=== PATIENT | female | born 1995 ===

== ENCOUNTER → 2020-09-04 14:43 | Outpatient (BNVA) | payer OTHER, SELFPAY | PROVIDERS: Visit Provider Anesthesiology | DX: M51.36 Other intervertebral disc degeneration, lumbar region (principal); M54.16 Radiculopathy, lumbar region; M47.816 Spondylosis without myelopathy or radiculopathy, lumbar region; Z79.899 Other long term (current) drug therapy | CPT/HCPCS: 99212 ==

== ENCOUNTER → 2020-10-15 10:27 | Outpatient (BNVA) | payer OTHER, SELFPAY | PROVIDERS: PCP Internal Medicine; Visit Provider Nurse Practitioner | DX: M51.36 Other intervertebral disc degeneration, lumbar region (principal); M54.16 Radiculopathy, lumbar region; M47.16 Other spondylosis with myelopathy, lumbar region; E66.01 Morbid (severe) obesity due to excess calories; K75.81 Nonalcoholic steatohepatitis (NASH); Z79.899 Other long term (current) drug therapy | CPT/HCPCS: 99214; 99212 ==

== ENCOUNTER 2020-11-04 13:24 | Outpatient (RCR) | payer OTHER, SELFPAY ==
--- NOTE | 2020-11-04 14:47 | MHC.PT.EP ---
[facility] [place] Office [place] Office [place] Office [address] Nestor Buckner [address] [phone] F: [phone] F: [phone] F: [phone] F: [phone] Physical Therapy Plan of Care Date of Evaluation: Date of Surgery: Diagnosis: back pain Assessment: The patient arrived reporting chronic low back pain. By patient report she describes a sedentary lifestyle. She has some decreased trunk mobility, decreased lower extremity strength globally. She would benefit from a general HEP that promotes physical fitness, postural and core stabilization. She tends to lock out her knees in standing. I educated her on the negative implications this will have on her lower back and knees. Frequency and Duration: The patient will be seen 1x/week x 4 weeks. Short Term Goals: 1.Pt to able to demonstrate proper sitting posture with the use of a lumbar roll to decrease aggravating factors. 2.Pt to be able to demonstrate proper posture for common leisure activities such as crocheting and phone/tablet use. 3.For the patient to demonstrate proper upright sitting posture with use of the lumbar roll to improve compliance and carryover. Care Home Goals: 4 weeks - 1.The patient to demonstrate proper lifting mechanics for household chore activities to show improved functional mobility. 2.The patient to report no leg or hip pain in order to show centralization of pain and reduction of lumbar derangement 3. Pt to be able to demonstrate self management of lumbar pain by demonstration of HEP. Treatment Plan: Modalities to reduce pain, spasms and effusion. Manual therapy to restore motion and function. Therapeutic exercise to improve strength and flexibility. Neuromuscular re-education for posture and balance. Therapeutic activities to return to functional activities of daily living. Electronically signed by: Lea Marie PT DPT Please sign and return to therapist. Thank you for your referral.
== END 2020-11-19 08:00 | disposition home or self-care (01) ==
LOC: HO.PT 13:24
PROVIDERS: Visit Provider Anesthesiology
DX: M47.816 Spondylosis without myelopathy or radiculopathy, lumbar region (principal)
CPT/HCPCS: 97110; 97112; 97162

== ENCOUNTER → 2020-12-25 15:06 | Outpatient (BNVA) | payer OTHER, SELFPAY | PROVIDERS: PCP Internal Medicine; Visit Provider Nurse Practitioner Family | DX: M51.36 Other intervertebral disc degeneration, lumbar region (principal); M54.16 Radiculopathy, lumbar region; M47.816 Spondylosis without myelopathy or radiculopathy, lumbar region | CPT/HCPCS: 99212 ==

== ENCOUNTER 2021-01-13 11:54 | Outpatient (REF) | payer OTHER, SELFPAY ==
[2021-01-13 13:01] LABS: Hematocrit 38.6 % (37-47); Hemoglobin 12.2 g/dl (12.0-16.0); Mean Corpuscular HGB Conc 31.6 g/dl (31.0-35.0); Mean Corpuscular Volume 82.3 fL (80-98); Mean Platelet Volume 12.2 fL (9.4-12.3); Platelet Count 261 X10*3/uL (160-400); Red Blood Count 4.69 X10*6/uL (4.20-5.50); Red Cell Distribution Width 13.4 % (11.0-16.0); White Blood Count 5.3 X10*3/uL (4.8-10.8)
[2021-01-13 13:16] LABS: Alanine Aminotransferase 243 U/L (0-31); Albumin Level 4.7 g/dL (3.5-5.0); Alkaline Phosphatase 116 U/L (39-117); Anion Gap 13 (12-20); Aspartate Amino Transferase 221 U/L (5-31); Bilirubin Direct 0.2 mg/dL (0.0-0.5); Bilirubin Total 0.3 mg/dL (0.0-1.0); Blood Urea Nitrogen 7 mg/dL (9-16); Calcium 9.6 mg/dL (8.4-10.2); Carbon Dioxide 23 mmol/L (22-29); Chloride 104 mmol/L (96-108); Cholesterol 248 mg/dL; Estimated Glomerular Filt Rate > 60; Glucose Random 297 mg/dL (60-115); HDL Cholesterol 34 mg/dL; Potassium 4.4 mmol/L (3.3-5.1); Sodium 136 mmol/L (135-145); Total Protein 8.2 g/dL (6.5-8.0); Triglycerides 540 mg/dL
[2021-01-13 13:26] LABS: Estimated Average Glucose 260 mg/dL; Hemoglobin A1c % 10.7 %
[2021-01-13 13:38] LABS: Thyroid Stimulating Hormone 1.43 uIU/mL (0.32-4.0)
== END 2021-01-13 11:55 | disposition home or self-care (01) ==
LOC: HO.LAB 11:54
PROVIDERS: PCP Internal Medicine; Visit Provider Internal Medicine
DX: E11.9 Type 2 diabetes mellitus without complications (principal)
CPT/HCPCS: 36415; 80048; 80061; 80076; 83036; 84443; 85027

== ENCOUNTER → 2021-04-08 15:58 | Outpatient (BNVA) | payer OTHER, SELFPAY | PROVIDERS: PCP Internal Medicine; Visit Provider Nurse Practitioner ==

== ENCOUNTER 2021-04-29 08:14 | Outpatient (REF) | payer OTHER, SELFPAY ==
--- NOTE | ~2021-04-29 | US_ITS ---
EXAMINATION: US ABDOMEN COMPLETE CLINICAL INFORMATION: BENOIT (nonalcoholic steatosis). COMPARISON: Ultrasound abdomen complete dated 12/16/2018. TECHNIQUE: Real-time imaging of the abdominal viscera. FINDINGS: PANCREAS: Normal. ABDOMINAL AORTA: The proximal, mid, and distal segments are normal in caliber. INFERIOR VENA CAVA: Visualized portions are normal. LIVER: Liver echotexture is increased. The liver is enlarged, right lobe measuring 26 cm and left lobe measuring 19 cm in length. The liver contour is normal. No focal hepatic lesion. There is no intrahepatic biliary duct dilatation seen. GALLBLADDER: The gallbladder is physiologically distended. Multiple small dependent layering gallstones are present. No evidence of gallbladder wall thickening or pericholecystic fluid. COMMON BILE DUCT: Normal in caliber measuring 0.5 cm in diameter. RIGHT KIDNEY: Normal. No hydronephrosis. No renal calculi or focal parenchymal lesions. The kidney measures 14.7 cm in maximum dimension. LEFT KIDNEY: There is mild fullness of the left renal pelvis. This is new from previous exam. No calyceal dilatation is seen. No renal calculi or focal parenchymal lesions. The kidney measures 15.0 cm in maximum dimension. SPLEEN: There is a 2 cm splenule splenic hilum. The spleen measures 12.1 cm in maximum dimension. FREE FLUID: None. US/US abdomen complete IMPRESSION: Enlarged fatty liver. Gallstones.
== END 2021-04-29 08:15 | disposition home or self-care (01) ==
LOC: HO.US 08:14
PROVIDERS: PCP Internal Medicine; Visit Provider Nurse Practitioner
DX: K75.81 Nonalcoholic steatohepatitis (NASH) (principal)
CPT/HCPCS: 76700

== ENCOUNTER → 2021-07-11 10:59 | Outpatient (BNVA) | payer OTHER, SELFPAY | PROVIDERS: PCP Internal Medicine; Referring Provider Internal Medicine; Visit Provider Nurse Practitioner | DX: K75.81 Nonalcoholic steatohepatitis (NASH) (principal); K80.20 Calculus of gallbladder without cholecystitis without obstruction; E66.01 Morbid (severe) obesity due to excess calories; E11.65 Type 2 diabetes mellitus with hyperglycemia; Z68.35 Body mass index [BMI] 35.0-35.9, adult | CPT/HCPCS: 99212 ==

== ENCOUNTER 2021-07-18 12:00 | Outpatient (REF) | payer OTHER, SELFPAY ==
[2021-07-18 13:02] LABS: Alanine Aminotransferase 79 U/L (0-31); Albumin Level 4.8 g/dL (3.5-5.0); Alkaline Phosphatase 105 U/L (39-117); Aspartate Amino Transferase 41 U/L (5-31); Bilirubin Direct 0.2 mg/dL (0.0-0.5); Bilirubin Total 0.4 mg/dL (0.0-1.0); Total Protein 8.5 g/dL (6.5-8.0)
== END 2021-07-18 12:01 | disposition home or self-care (01) ==
LOC: HO.LAB 12:00
PROVIDERS: PCP Internal Medicine; Visit Provider Nurse Practitioner
DX: K75.81 Nonalcoholic steatohepatitis (NASH) (principal)
CPT/HCPCS: 36415; 80076; 82105

== ENCOUNTER 2021-09-01 10:19 | Outpatient (REF) | payer OTHER, SELFPAY ==
--- NOTE | ~2021-09-01 | US_ITS ---
EXAMINATION: US ABDOMEN LIMITED CLINICAL INFORMATION: BENOIT. COMPARISON: Ultrasound abdomen complete 04/29/2021 and 12/16/2018. TECHNIQUE: Real-time imaging of the right upper quadrant abdominal viscera. FINDINGS: PANCREAS: The head and body of the pancreas are normal. The tail is not well visualized due to bowel gas. LIVER: Liver echotexture is slightly increased. Liver is slightly enlarged, right lobe measuring 20 cm. The liver contour is normal. No focal hepatic lesion. There is no intrahepatic biliary duct dilatation seen. GALLBLADDER: The gallbladder is physiologically distended. Multiple mobile gallstones are present. No evidence of gallbladder wall thickening or pericholecystic fluid. COMMON BILE DUCT: Normal in caliber measuring 0.5 cm in diameter. RIGHT KIDNEY: Slightly enlarged but similar to previous exam. This may be due to body habitus. No hydronephrosis. No renal calculi or focal parenchymal lesions. The kidney measures 14.5 cm in maximum dimension. FREE FLUID: None. US/US abdomen limited IMPRESSION: Slightly echogenic liver probably representing fatty infiltration. Gallstones. Limited visualization of the tail of the pancreas.
== END 2021-09-01 10:20 | disposition home or self-care (01) ==
LOC: HO.US 10:19
PROVIDERS: PCP Internal Medicine; Visit Provider Nurse Practitioner
DX: K75.81 Nonalcoholic steatohepatitis (NASH) (principal)
CPT/HCPCS: 76705

== ENCOUNTER 2021-09-12 11:00 | Outpatient (RCR) | payer OTHER, SELFPAY ==
--- NOTE | 2021-09-12 12:11 | MHC.PT.DC ---
[facility] [place] Office [place] Office [place] Office [address] Nestor Buckner [address] [phone] F: [phone] F: [phone] F: [phone] F: [phone] Physical Therapy Discharge Report Diagnosis: LOW BACK PAIN Date of Surgery: Date of Evaluation: 06/06/21 Date of Discharge: Treatments to Date: 8 Cancellations to Date: No Shows to Date: Discharge Status: Discharge Summary: Evie was able to demonstrate independence with HEP today. She has had difficulty attending regular therapy and has only completed 8 visits since May. At this point it appears a focused home program will be more beneficial for her at this time. Electronically signed by: Please sign and return to therapist. Thank you for your referral.
== END 2021-09-12 12:13 | disposition home or self-care (01) ==
LOC: HO.PT 11:00
PROVIDERS: PCP Internal Medicine; Visit Provider Nurse Practitioner Family
DX: M47.816 Spondylosis without myelopathy or radiculopathy, lumbar region (principal)
CPT/HCPCS: 97110; 97161; 97530

== ENCOUNTER → 2022-02-05 12:15 | Outpatient (BNVA) | payer OTHER, SELFPAY | PROVIDERS: PCP Internal Medicine; Referring Provider Internal Medicine; Visit Provider Nurse Practitioner | DX: K75.81 Nonalcoholic steatohepatitis (NASH) (principal); K76.0 Fatty (change of) liver, not elsewhere classified; E11.65 Type 2 diabetes mellitus with hyperglycemia; E66.01 Morbid (severe) obesity due to excess calories | CPT/HCPCS: 99212 ==

== ENCOUNTER 2022-02-24 08:58 | Outpatient (REF) | payer OTHER, SELFPAY ==
[2022-02-24 10:04] LABS: Hematocrit 36.8 % (37.0-47.0); Hemoglobin 11.9 g/dl (12.0-16.0); Mean Corpuscular HGB Conc 32.3 g/dl (31.0-35.0); Mean Corpuscular Hemoglobin 26.7 pg (27.0-33.0); Mean Corpuscular Volume 82.5 fL (80.0-98.0); Mean Platelet Volume 11.6 fL (9.4-12.3); Platelet Count 269 X10*3/uL (160-400); Red Blood Count 4.46 X10*6/uL (4.20-5.50); Red Cell Distribution Width 13.5 % (11.0-16.0); White Blood Count 7.3 X10*3/uL (4.8-10.8)
[2022-02-24 10:07] LABS: Estimated Average Glucose 163 mg/dL; Hemoglobin A1c % 7.3 %
[2022-02-24 10:21] LABS: Microalbum/Creatinine Ratio Ur 9.2 ug/mg cr
[2022-02-24 10:24] LABS: Alanine Aminotransferase 38 U/L (0-31); Albumin Level 4.5 g/dL (3.5-5.0); Alkaline Phosphatase 65 U/L (39-117); Anion Gap 15 (12-20); Aspartate Amino Transferase 23 U/L (5-31); Bilirubin Direct 0.2 mg/dL (0.0-0.5); Bilirubin Total 0.5 mg/dL (0.0-1.0); Blood Urea Nitrogen 9 mg/dL (9-16); Calcium 9.6 mg/dL (8.4-10.2); Carbon Dioxide 22 mmol/L (22-29); Chloride 106 mmol/L (96-108); Cholesterol 201 mg/dL; Estimated Glomerular Filt Rate > 60; Glucose Random 103 mg/dL (60-115); HDL Cholesterol 29 mg/dL; LDL Cholesterol Calculated 117 mg/dl; Potassium 4.2 mmol/L (3.3-5.1); Sodium 139 mmol/L (135-145); Total Protein 7.9 g/dL (6.5-8.0); Triglycerides 277 mg/dL
== END 2022-02-24 08:59 | disposition home or self-care (01) ==
LOC: HO.LAB 08:58
PROVIDERS: PCP Internal Medicine; Visit Provider Internal Medicine
DX: E11.65 Type 2 diabetes mellitus with hyperglycemia (principal)
CPT/HCPCS: 36415; 80048; 80061; 80076; 82043; 83036; 85027

== ENCOUNTER 2022-06-01 10:46 | Emergency (ER) | payer OTHER, SELFPAY ==
[2022-06-01 10:51] VITALS: PULSE 87; RESP 16; TEMP 36.3; O2SAT 98; BMI 34.4
--- NOTE | 2022-06-01 11:49 | ED.GENADULT ---
HPI - General Adult General Chief complaint: Back Pain/Injury Stated complaint: Back pain rad to leg Time Seen by Provider: 06/01/22 11:47 Source: patient Mode of arrival: ambulatory Limitations: no limitations History of Present Illness HPI narrative: Patient is a 27 year old assigned female at with a history of DM, lumbar spine disc degeneration, and BENOIT presenting to the emergency department today with low back pain. Patient states that for the last 2 weeks she has had worsening low back pain that radiates down her leg. Patient states that she has had problems with this in the past but it usually resolves on its own. Patient denies any dizziness, lightheadedness, abdominal pain, nausea, vomiting, fever, chills, blurry vision, double vision, loss of vision, chest pain, difficulty breathing, shortness of breath, night sweats, pain with urination, increased urinary frequency, increased urinary urgency, blood in her urine or stool, syncope or a near syncopal episode, recent trauma or falls, bowel incontinence, bladder incontinence, bowel retention, bladder retention, or any other complaints at this time. Onset (ago): week(s) (2) Location: back Radiation: extremity Severity: mild Severity scale (1-10): 3 Quality: aching Pain Consistency: intermittent Relieving factors: none Exacerbating factors: movement Associated symptoms: denies other symptoms Treatments prior to arrival: none Related Data Home Medications Medication Instructions Recorded Confirmed lancets 28 gauge #100 ea 04/30/20 09/19/21 blood sugar diagnostic (FreeStyle 05/01/21 09/19/21 Test strips) Previous Rx's Medication Instructions Recorded cyclobenzaprine 10 mg tablet 10 mg PO BEDTIME PRN for muscle 05/01/21 spasm #30 tabs gabapentin 300 mg capsule 300 mg PO TID 1 month #90 caps 05/01/21 hydroxyzine HCl 25 mg tablet 25 mg PO TID PRN for itch #30 tabs 05/01/21 ibuprofen 800 mg tablet 800 mg PO Q8H PRN for pain #30 tabs 05/01/21 losartan 25 mg tablet 25 mg PO DAILY 90 days #90 tabs 05/01/21 tizanidine 2 mg tablet 2 mg PO BEDTIME PRN muscle 05/01/21 spasticity #30 tabs pen needle, diabetic 32 gauge x #50 ea 12/02/21 5/32 (BD Hanny 2nd Gen Pen Needle) sertraline 50 mg tablet 50 mg PO DAILY #90 tabs 11/26/21 atorvastatin 40 mg tablet 40 mg PO DAILY #90 tabs 12/15/21 sitagliptin phosphate 50 mg tablet 50 mg PO DAILY #90 tabs 02/16/22 (Januvia) flash glucose scanning reader #1 ea 03/26/22 (FreeStyle Hannah 14 Day [place]) flash glucose sensor (FreeStyle #2 kits 03/26/22 Hannah 14 Day Sensor kit) trazodone 100 mg tablet 100 mg PO BEDTIME PRN sleep 90 04/24/22 days #90 tabs insulin glargine 100 unit/mL (3 15 unit (0.15 mL) subcut QPM #15 mL 05/17/22 mL) subcutaneous pen (Lantus Solostar U-100 Insulin) cyclobenzaprine 5 mg tablet 5 mg PO TID PRN back pain 7 days 06/01/22 #21 tabs prednisone 20 mg tablet 20 mg PO DAILY 7 days #7 tabs 06/01/22 Allergies Allergy/AdvReac Type Severity Reaction Status Date / Time penicillin V Allergy Unknown rash,hives, Verified 06/01/22 10:51 fever Review of Systems Constitutional: Constitutional: Reports no additional constitutional complaints, Denies chills, Denies fever(s) and Denies night sweats Eyes: Eyes: Reports no additional eye complaints, Denies blurry vision, Denies change in vision, Denies diplopia, Denies eye discharge, Denies loss of vision and Denies eye pain ENT: Denies dizziness Cardiovascular: Cardiovascular: Reports no additional cardiovascular complaints, Denies chest pain, Denies lightheadedness, Denies Loss of Consciousness and Denies dyspnea Respiratory: Respiratory: Reports no additional respiratory complaints and Denies dyspnea Gastrointestinal: Gastrointestinal: Reports no additional gastrointestinal complaints, Denies abdominal pain, Denies melena, Denies hematochezia, Denies change in bowel habits and Denies change in stool character Genitourinary: Genitourinary: Denies hematuria, Denies urinary frequency, Denies dysuria, Denies urinary incontinence, Denies urinary hesitancy and Denies urinary urgency Musculoskeletal: Musculoskeletal: Reports no additional musculoskeletal complaints, Reports back pain, Denies numbness and Denies tingling Neurologic: Denies dizziness, Denies loss of vision, Denies numbness and Denies tingling Psychiatric: Psychiatric: Reports no additional psychiatric complaints Endocrine: Endocrine: Reports no additional endocrine complaints Hematologic/Lymphatic: Hematologic/Lymphatic: Reports no additional hematologic/lymphatic complaints Allergic/Immunologic: Allergic/Immunologic: Reports no additional allergic/immunologic complaints PMFSH Past Medical History Attestation statement: The following information was validated with the patient. Source: old records reviewed and nursing notes reviewed Medical History Bilateral hand pain Disc degeneration, lumbar Endogenous depression High cholesterol Radiculopathy, lumbar region Spondylosis of lumbar spine Surgical History H/O knee surgery History of section Family History Family History Father Hypertension Mother Breast cancer Pelvic cancer Hypertension Diabetes Maternal Grandmother Diabetes Hypertension CVD (cardiovascular disease) Maternal Grandfather Diabetes Hypertension CVD (cardiovascular disease) Social History Social History Household Members: Children Housing: Apartment Alcohol intake: current Alcohol intake frequency: does not drink Patient Tobacco Use Status: Never used Tobacco e-Cigarette/Vaping Use: Never Used Second Hand Smoke Exposure: Yes Advance Directives: No Advance Directives Information Provided: No service: No Current occupational status: disabled Cognitive needs: Yes (cane) Hearing needs: No Vision needs: No Physical Exam ED Vital Signs: Vital Signs - 24 hr 06/01/22 10:51 Temperature 97.3 F Pulse Rate 87 Respiratory Rate 16 Pulse Oximetry 98 Oxygen Delivery Method Room Air BMI result Body Mass Index 34.4 Const General: cooperative, no acute distress, alert and awake Nutritional Appearance: well nourished Orientation/consciousness: patient oriented x3 Limitations: no limitations HENMT Head: Yes normal to inspection and Yes atraumatic Ears: hearing grossly normal bilaterally and external ears normal General nose exam: Normal external nose present, no nasal discharge noted and no epistaxis Face and sinus: Yes normal facial exam, No abrasion and No laceration Mouth: Normal oral and palatal mucosa present, no drooling and no muffled voice Eyes General: appearance normal, both eyes and all related structures Periorbital: periorbital findings normal Eyelids: Yes eyelids normal Conjunctivae: conjunctivae normal Pupils: Equal, round and reactive pupils present EOM: EOMs intact bilaterally Neck Neck: Yes normal visual inspection, Yes full ROM and Yes no lymphadenopathy Chest Chest palpation & inspection: normal inspection of the chest Resp Effort & Inspection: normal respiratory effort and able to speak in complete sentences Auscultation: clear to auscultation bilaterally Cardio Rate: regular rate Rhythm: regular rhythm GI Inspection: Yes normal to inspection General: Yes no CVA tenderness Back/Spine/Pelvis Back: no CVA tenderness Cervical Spine: normal cervical lordosis and cervical ROM normal Thoracic/Lumbar Spine: thoracic and lumbar spine normal to inspection and thoraco-lumbar ROM normal Pelvis: no pain with anterior-posterior compression Neuro General: patient oriented x3 and moves all extremities Cranial nerves: Yes Equal, round and reactive pupils present Cognition (Neuro): normal cognition Motor exam (neuro): 5/5 motor strength present throughout Sensory Exam: Normal double simultaneous stimulation for sensation Coordination: picawa-bz-[id number] test normal Extrem General: Yes normal to inspection, Yes full ROM and Yes capillary refill normal Psych Appearance: grossly normal Mental Status: mental status grossly normal Affect: normal affect Attitude: cooperative Thought process: Normal thought process present Thought content: Normal thought content present Insight: Good insight present (Psych) Medications Administered Discontinued Medications Generic Name Dose Route Start Last Admin Trade Name Jazmin PRN Reason Stop Dose Admin Cyclobenzaprine HCl 5 mg 06/01/22 11:55 06/01/22 12:05 Cyclobenzaprine Hcl 5 Mg Tablet PO 06/01/22 11:56 5 mg ONCE ONE Administration Ketorolac Tromethamine 15 mg 06/01/22 11:55 06/01/22 12:06 Ketorolac Tromethamine 15 Mg/Ml Vial IM 06/01/22 11:56 15 mg ONCE ONE Administration Medical Decision Making Medical Decision Making [facility] Narrative: Patient is a 27 year old assigned female at with a history of DM, BENOIT, and lumbar spine disc degeneration presenting to the emergency department today with low back pain. Patient's physical exam was unremarkable. Patient's clinical presentation is most consistent with sciatica. I explained my physical exam findings to the patient. I answered all questions asked by the patient. Patient received PO Flexeril and IM Toradol which she stated helped her symptoms significantly. I stressed the importance of the patient taking her medication as prescribed. I stressed the importance of the patient following up with her primary care provider. I stressed the importance of the patient returning to the emergency department immediately if her symptoms were to worsen or if she were to develop any dizziness, shortness of breath, difficulty breathing, chest pain, blurry vision, loss of vision, nausea, vomiting, abdominal pain, fever, chills, back pain, or any other complaints. Patient verbalized agreement and understanding with this treatment plan and discharge. Differential Diagnosis Differential Diagnoses: The differential diagnosis associated with the presentation includes sciatica, chronic low back pain, low back pain, sciatic nerve pain Chronic Conditions Patient?s care impacted by: Diabetes and Other (low back pain) Discharge Plan Discharge Clinical Impression: Sciatica Patient Disposition: Home, Self-Care Instructions: Sciatica (ED) Additional Instructions: Follow up with your primary care provider. Return to the emergency department immediately if your symptoms worsen or if you develop any dizziness, shortness of breath, difficulty breathing, chest pain, blurry vision, loss of vision, nausea, vomiting, abdominal pain, fever, chills, back pain, or any other complaints. Prescriptions: New cyclobenzaprine 5 mg tablet 5 mg PO TID PRN (Reason: back pain) 7 Days Qty: 21 0RF prednisone 20 mg tablet 20 mg PO DAILY 7 Days Qty: 7 0RF No Action sertraline 50 mg tablet 50 mg PO DAILY Qty: 90 1RF atorvastatin 40 mg tablet 40 mg PO DAILY Qty: 90 1RF Januvia 50 mg tablet 50 mg PO DAILY Qty: 90 1RF (DME) FreeStyle Hannah 14 Day Sensor Kit See Rx Instructions .ROUTE .COMPLEX Qty: 2 0RF Dose Instruction: USE DIRECTED Rx Instructions: USE DIRECTED trazodone 100 mg tablet 100 mg PO BEDTIME PRN (Reason: sleep) 90 Days Qty: 90 1RF Lantus Solostar U-100 Insulin 100 unit/mL (3 mL) insulin pen 15 unit subcut QPM Qty: 15 0RF (DME) lancets 28 gauge misc See Rx Instructions topical TID Qty: 100 Rx Instructions: As directed tizanidine 2 mg tablet 2 mg PO BEDTIME PRN (Reason: muscle spasticity) Qty: 30 0RF Rx Instructions: discontinue flexeril. start with 1/2 tab as medication can be sedating losartan 25 mg tablet 25 mg PO DAILY 90 Days Qty: 90 0RF ibuprofen 800 mg tablet 800 mg PO Q8H PRN (Reason: for pain) Qty: 30 0RF hydroxyzine HCl 25 mg tablet 25 mg PO TID PRN (Reason: for itch) Qty: 30 0RF gabapentin 300 mg capsule 300 mg PO TID 30 Days Qty: 90 0RF cyclobenzaprine 10 mg tablet 10 mg PO BEDTIME PRN (Reason: for muscle spasm) Qty: 30 0RF (DME) FreeStyle Test Strip See Rx Instructions .Route Rx Instructions: Test bs three time a day (DME) pen needle, diabetic [BD Hanny 2nd Gen Pen Needle] 32 gauge x 5/32 needle See Rx Instructions .Route Qty: 50 12RF Rx Instructions: As directed daily (DME) FreeStyle Hannah 14 Day [place] Misc See Rx Instructions .Route Qty: 1 8RF Rx Instructions: As directed Referrals: Rogelio Tadeo MD [Primary Care Provider] - Interventions: ED Discharge Assessment Last Done: 06/01/22 12:15 Discharge Date/Time: 06/01/22 12:16 Print Language: Yakut
[2022-06-01] MEDS: Cyclobenzaprine HCl 5 MG TABLET PO (12:05)
[2022-06-01] MEDS: Ketorolac Tromethamine 15 MG/ML VIAL IM (12:06)
== END 2022-06-01 12:16 | disposition home or self-care (01) ==
PROVIDERS: Emergency Provider Emergency Medicine; PCP Internal Medicine
DX: M54.40 Lumbago with sciatica, unspecified side (principal); E11.9 Type 2 diabetes mellitus without complications; E78.5 Hyperlipidemia, unspecified; E66.9 Obesity, unspecified; Z68.34 Body mass index [BMI] 34.0-34.9, adult; Z79.02 Long term (current) use of antithrombotics/antiplatelets; Z79.4 Long term (current) use of insulin; Z79.899 Other long term (current) drug therapy
CPT/HCPCS: 96372; 99283; 99284; J1885

== ENCOUNTER 2022-12-31 15:18 | Outpatient (AMB) | payer OTHER, SELFPAY ==
--- NOTE | 2022-12-31 15:32 | A.OFFPC_ITS ---
Vital Signs 12/31/22 15:36 Height 5 ft 10 in Weight 252 lb 4 oz BMI 36.2 BP 130/60 Blood Pressure Location Lt brachial Position Sitting Intake Visit Reasons: 3mth f/u (DM) Intake Note: Patient is here to follow up on DM, DDL. Software Quality Assurance Specialist Required: No Optical Goods Drill Operator: Not Required per policy Accompanied by: Self / Same As Patient Allergies penicillin V Allergy (Unknown, Verified 01/01/23 12:05) rash,hives, fever Medication List - Last Reconciled 01/01/23 by Rogelio Tadeo MD atorvastatin 40 mg PO DAILY blood sugar diagnostic (FreeStyle Test strips) Test bs three time a day cyclobenzaprine 5 mg PO TID PRN 7 days cyclobenzaprine 10 mg PO BEDTIME PRN flash glucose scanning reader (FreeStyle Hannah 14 Day Cabazon) As directed flash glucose sensor (FreeStyle Hannah 14 Day Sensor kit) USE DIRECTED gabapentin 300 mg PO TID 1 month hydroxyzine HCl 25 mg PO TID PRN ibuprofen 800 mg PO Q8H PRN insulin glargine (Lantus Solostar U-100 Insulin) 15 units (0.15 mL) subcut QPM lancets As directed losartan 25 mg PO DAILY 90 days meloxicam 15 mg PO DAILY pen needle, diabetic (BD Hanny 2nd Gen Pen Needle) As directed daily sertraline 50 mg PO DAILY sitagliptin phosphate (Januvia) 50 mg PO DAILY tizanidine 2 mg PO BEDTIME PRN topiramate 25 mg PO BID trazodone 100 mg PO BEDTIME PRN 90 days Tobacco use date assessed: 12/31/22 Dental Screening Dental Screen Date: 12/31/22 Did you have a dental visit in the last 12 months?: No Did you have a dental problem in the last 6 months where you did not have access to dental care?: No Was dental information given to patient?: No HPI 3mth f/u (DM) HPI Details 27-year-old female presents to the office to discuss her chronic medical conditions. Since last office visit patient has had 2 surgeries. She had a disc repair on July 21 and repeat surgery on September 17. Continues to have symptoms of numbness on the right side of her leg. She has been referred to physical therapy. In addition patient fell from a [place] 2 days ag o. She landed on her butt and is painful. Able to walk with no difficulty. [facility] Medical History (Updated 06/02/22 @ 00:01 by Le Flanagan) Bilateral hand pain Disc degeneration, lumbar Endogenous depression High cholesterol Radiculopathy, lumbar region Spondylosis of lumbar spine Surgical History (Updated 12/31/22 @ 15:41 by MANSOOR Fraga) H/O knee surgery History of back surgery History of section Family History Father Hypertension Mother Breast cancer Pelvic cancer Hypertension Diabetes Maternal Grandmother Diabetes Hypertension CVD (cardiovascular disease) Maternal Grandfather Diabetes Hypertension CVD (cardiovascular disease) Social History Household Members: Children Housing: Apartment Alcohol intake: current Alcohol intake frequency: does not drink Patient Tobacco Use Status: Never used Tobacco e-Cigarette/Vaping Use: Never Used Second Hand Smoke Exposure: Yes service: No Current occupational status: disabled Cognitive needs: Yes (cane) Hearing needs: No Vision needs: No Questionnaire PHQ-9 Over the last 2 weeks, how often have you been bothered by any of the following problems? 1. Little interest or pleasure in doing things: not at all 2. Feeling down, depressed, or hopeless: several days (Pt is been treat at therapy) 3. Trouble falling or staying asleep, or sleeping too much: not at all 4. Feeling tired or having little energy: not at all 5. Poor appetite or overeating: not at all 6. Feeling bad about yourself - or that you are a failure or have let yourself or your family down: not at all 7. Trouble concentrating on things, such as reading the newspaper or watching television: not at all 8. Moving or speaking so slowly that other people could have noticed. Or the opposite - being so fidgety or restless that you have been moving around a lot more than usual: not at all 9. Thoughts that you would be better off or of hurting yourself in some wa y: not at all Total score: 1 Source: Developed by Drs. Emile Prince, Andra Barfield, Velasquez Frances and colleagues, with an educational keeley from [employer]. Thrive Questionnaire Date Thrive assessed: 12/31/22 I am a: Patient What is your living situation today?: I have a steady place to live Within the past 12 months, did the food you bought not last and you didn't have the money to get more?: Never true Within the past 12 months, did you worry whether your food would run out before you got money to buy more?: Never true Do you have trouble paying for medicines?: No Do you have trouble getting transportation to medical appointments?: No Do you have trouble paying your heating and electricity bill?: No Do you have trouble taking care of your child, family member or friend?: No Do you have trouble with day-to-day activities such as bathing, preparing meals, shopping, managing finances, etc.?: No Are you currently unemployed and looking for a job?: No Are you interested in more education?: No Currently or been in a relationship where the following occur: no concerns reported AUDIT C Alcohol Use Questionnaire (AUDIT-C) 1. How often do you have a drink containing alcohol?: Never Total Score: 0 KAI-7 AMB Questionnaire KAI-7 Date KAI - 7 assessed: 12/31/22 Feeling nervous, anxious, or on edge: 1 = Several days (Pt is been treat at therapy) Not being able to stop or control worryin = Not at all Worrying too much about different things: 0 = Not at all Trouble relaxin = Not at all Being so restless that it is hard to sit still: 0 = Not at all Becoming easily annoyed or irritable: 0 = Not at all Feeling afraid as if something awful might happen: 0 = Not at all Total KAI-7 score (0-4 normal; 5-9 mild; 10-14 moderate; 15-21 severe): 1 Source: Developed by Drs. Emile Prince, Andra Barfield, Velasquez Frances and colleagues, with an educational keeley from [employer]. Physical exam (Primary Care) Vital Signs: Last Vital Signs BP 130/60 12/31/22 15:36 BMI result Body Mass Index 36.2 Tobacco/Smoking Status: Tobacco use Status Tobacco use date assessed 12/31/22 12/31/22 15:46 Patient Tobacco Use Status Never used Tobacco 12/31/22 15:35 e-Cigarette/Vaping Use Never Used 12/31/22 15:35 PHQ-9: PHQ-9 Score PHQ-9: Total score 1 12/31/22 15:46 Thrive Assessment: Date of Thrive Assessment Date Thrive assessed 12/31/22 12/31/22 15:35 Currently or been in a relationship where the following occur: no concerns reported Const General: cooperative, healthy appearing and comfortable HENMT Head: Yes normal to inspection and Yes atraumatic Eyes General: appearance normal, both eyes and all related structures Neck Neck: Yes normal visual inspection and Yes full ROM Chest Chest palpation & inspection: normal inspection of the chest Resp Effort & Inspection: normal respiratory effort Auscultation: clear to auscultation bilaterally Cardio Jugular venous distension: no JVD Palpation: normal PMI Rate: regular rate Heart sounds: S1 normal heart sound present and S2 normal heart sound present GI Palpation (GI): Soft to palpation and No hepatosplenomegaly present Extrem General: Yes normal to inspection and Yes full ROM Results AMB Hemoglobin A1c AMB Hemoglobin A1c 8.0 % Last Edit by MANSOOR Fraga on 12/31/22 15:47 Results Reviewed Results Reviewed: Laboratory Last Values Hgb A1c (Clinic) 8.0 % (4.0-6.0) H 12/31/22 15:31 Assessment and Plan Assessment & Plan (1) Endogenous depression: Code(s): F33.2 - Major depressive disorder, recurrent severe without psychotic features Plan: This appears to be stable. Control current medications. (2) Poorly controlled diabetes mellitus: Code(s): E11.65 - Type 2 diabetes mellitus with hyperglycemia Plan: A1c is 8. Patient at the moment is more concerned about her lower back pain. She has promised to change her diet. (3) Morbid obesity: Code(s): E66.01 - Morbid (severe) obesity due to excess calories Plan: Counseling on the importance of diet and exercise done. (4) Radiculopathy, lumbar region: Code(s): M54.16 - Radiculopathy, lumbar region Plan: All care in this regard is from the neurosurgeon who is coordinating the physical therapy. Orders: Orders 2 AMB Hemoglobin A1c 12/31/22 E11.65 - Type 2 diabetes mellitus with hyperglycemia Coding Level of Care Code Est Pt Level 4 (63546) Diagnoses Endogenous depression F33.2 Poorly controlled diabetes mellitus E11.65 Morbid obesity E66.01 Radiculopathy, lumbar region M54.16
[2022-12-31 15:36] VITALS: BP 130/60; BMI 36.2
== END 2022-12-31 16:13 | disposition home or self-care (01) ==
PROVIDERS: PCP Internal Medicine; Visit Provider Internal Medicine
DX: F33.2 Major depressive disorder, recurrent severe without psychotic features (principal); E11.65 Type 2 diabetes mellitus with hyperglycemia; E66.01 Morbid (severe) obesity due to excess calories; Z68.36 Body mass index [BMI] 36.0-36.9, adult; M54.16 Radiculopathy, lumbar region
CPT/HCPCS: 83036; 99214

== ENCOUNTER 2023-03-09 14:34 | Outpatient (AMB) | payer OTHER, SELFPAY ==
--- NOTE | 2023-03-09 14:37 | MHC.OFFVIS ---
Intake Vital Signs 03/09/23 14:47 Height 5 ft 10 in Weight 263 lb 3.711 oz BMI 37.8 BP 133/77 Blood Pressure Location Lt brachial Position Sitting Pulse 113 H Intake Visit Reasons: follow up missed from 12/31 Intake Note: Patient presents today to in office BENOIT follow up. CC: Patient reports having a lot of gas and has noticed that she has been having diarrhea more often after eating meals and abdominal pain. Patient reports she recently underwent x2 back surgeries and states she now has numbness from Rt leg. Transfer Agent Required: No Accompanied by: Self / Same As Patient Allergies penicillin V Allergy (Unknown, Verified 03/09/23 14:52) rash,hives, fever HPI follow up missed from 12/31 HPI Details Assessment & Plan (1) BENOIT (nonalcoholic steatohepatitis): ?Comment: BASELINE LABS/WORK UP BENOIT fibrosis stage F2 by liver biopsy 01/2020, 01/2020: Autoimmune workup negative, ceruloplasmin normal, alpha 1 antitrypsin level normal, hemochromatosis screen is negative, fibrosis staging is F 2 by liver biopsy, 12/2019 baseline alpha fetoprotein is 1.3, ferritin elevated at 562, she has negative hepatitis a B and C. she is morbidly obese at this time. CURRENT LABS Laboratory Tests ?07/18/2200/ ?12:1112:1113:20 Hgb A1c (Clinic) 7.9 H Total Bilirubin 0.4 Direct Bilirubin 0.2 AST 41 H D ALT 79 H Alkaline Phosphatase 105 Alpha Fetoprotein 2.0 ULTRASOUND OF THE ABDOMEN? 09/02/21 US/US abdomen limited IMPRESSION: Slightly echogenic liver probably representing fatty infiltration. Gallstones. Limited visualization of the tail of the pancreas. ?Code(s): K75.81 - Nonalcoholic steatohepatitis (BENOIT) ?Plan: She is doing well, but admits that her diabetes control is off again. She struggles with this and I encourage her to continue to work closely with her doctor on this as it effects the liver. She is [place] and has lost 10is since May, but her weight Goes up and down. We review the labs and imaging.? It appears that she is stable for now with her fatty liver. ROV 6 mos. TODAY'S VISIT She says her diabetes is controlled, no meds changes just diet changes. She is limiting carbs, candy etc. She is agreeable to repeat labs and will get US with elastography. No other new medical conditions, except that she had 2 back surgeries for herniated L5 disc. She re herniated it recovering, and despite surgery she still has numbness, weakness and pain right leg/foot. She is currently in PT and how much improvement she has is uncertain. ROV after US [facility] Medical History Endogenous depression Spondylosis of lumbar spine Radiculopathy, lumbar region Disc degeneration, lumbar High cholesterol Bilateral hand pain Surgical History (Updated 03/09/23 @ 15:20 by URSULA Wade) History of back surgery H/O knee surgery History of section Family History Father Hypertension Mother Breast cancer Pelvic cancer Hypertension Diabetes Maternal Grandmother Diabetes Hypertension CVD (cardiovascular disease) Maternal Grandfather Diabetes Hypertension CVD (cardiovascular disease) Social History Household Members: Children Housing: Apartment Alcohol intake: current Alcohol intake frequency: does not drink Patient Tobacco Use Status: Never used Tobacco e-Cigarette/Vaping Use: Never Used Second Hand Smoke Exposure: Yes service: No Current occupational status: disabled Cognitive needs: Yes (cane) Hearing needs: No Vision needs: No Review of Systems Const Denies fatigue, Denies fever(s), Denies night sweats, Denies poor appetite, Reports weight gain and Denies weight loss ENT Reports Normal hearing present, Denies dental pain, Denies dysphagia, Denies hearing loss, Denies mouth pain, Denies odynophagia, Denies throat swelling, Denies tongue swelling and Reports other (Dentition adequate) Card Reports no additional complaints Resp Reports no additional complaints GI Denies abdominal pain, Denies melena, Denies bloating, Denies hematochezia, Denies constipation, Denies GI cramping, Denies dysphagia, Denies excessive flatus, Denies early satiety, Denies heartburn, Denies diarrhea, Denies nausea, Denies odynophagia, Denies vomiting and Denies hematemesis Musc Reports back pain, Reports muscle weakness and Reports numbness Skin/Breast Denies pruritus, Denies lesions, Denies rash and Denies jaundice Neuro Reports Normal hearing present, Denies Abnormal speech present, Reports numbness and Reports paresthesias Endo Denies fatigue Aller/Immun Denies throat swelling and Denies tongue swelling Physical Exam Vital Signs: Last Vital Signs Pulse 113 H 03/09/23 14:47 BP 133/77 03/09/23 14:47 BMI result Body Mass Index 37.8 Const General: cooperative, no acute distress, well developed and well groomed Nutritional Appearance: well nourished and obese Orientation/consciousness: oriented to person, oriented to place and oriented to time Limitations: No language barrier HEENT Head: Yes normocephalic and Yes atraumatic Eyes General: appearance normal, both eyes and all related structures Pupils: Equal, round and reactive pupils present Neck Neck: Yes normal visual inspection and Yes no lymphadenopathy Thyroid: Thyroid normal Resp Effort & Inspection: normal respiratory effort and able to speak in complete sentences Auscultation: clear to auscultation bilaterally Cardio Rate: regular rate Rhythm: regular rhythm Heart sounds: Normal, physiologic split S2 sound present Peripheral pulses: radial pulses present and posterior tibial pulses present GI Inspection: No distended, Yes Abdominal panniculus present and Yes obesity Palpation (GI): Soft to palpation, nontender, no guarding, not rigid and No hepatosplenomegaly present Percussion: Yes normal to percussion Auscultation: normal bowel sounds Rectal Exam - Female: deferred Skin General skin exam: no rashes or lesions noted, turgor normal, skin not dry, no jaundice, No spider nevi and no striae Rashes: no rashes Nails: normal Neuro General: oriented to person, oriented to place and oriented to time Cranial nerves: Yes Equal, round and reactive pupils present and Yes Normal hearing present Speech: No Abnormal speech present Extrem General: Yes normal to inspection, No clubbing, No cyanosis and No edema Psych Appearance: grossly normal and well kempt Mental Status: mental status grossly normal Speech and movement: Normal speech and movement present Affect: normal affect Attitude: cooperative Thought process: Normal thought process present and not confabulating Thought content: Normal thought content present Insight: Limited insight present (Psych) Judgement: Limited judgement present (Psych) Assessment & Plan Assessment & Plan (1) BENOIT (nonalcoholic steatohepatitis): Comment: BASELINE LABS/WORK UP BENOIT fibrosis stage F2 by liver biopsy 01/2020, 01/2020: Autoimmune workup negative, ceruloplasmin normal, alpha 1 antitrypsin level normal, hemochromatosis screen is negative, fibrosis staging is F 2 by liver biopsy, 12/2019 baseline alpha fetoprotein is 1.3, ferritin elevated at 562, she has negative hepatitis a B and C. she is morbidly obese at this time. CURRENT LABS Laboratory Tests 07/18/2200/ 12:1112:1113:20 Hgb A1c (Clinic) 7.9 H Total Bilirubin 0.4 Direct Bilirubin 0.2 AST 41 H D ALT 79 H Alkaline Phosphatase 105 Alpha Fetoprotein 2.0 ULTRASOUND OF THE ABDOMEN 09/02/21 US/US abdomen limited IMPRESSION: Slightly echogenic liver probably representing fatty infiltration. Gallstones. Limited visualization of the tail of the pancreas. Code(s): K75.81 - Nonalcoholic steatohepatitis (BENOIT) Plan: She says her diabetes is controlled, no meds changes just diet changes. She is limiting carbs, candy etc. She is agreeable to repeat labs and will get US with elastography. Her gallstones remaining asymptomatic. No other new medical conditions, except that she had 2 back surgeries for herniated L5 disc. She re herniated it recovering, and despite surgery she still has numbness, weakness and pain right leg/foot. She is currently in PT and how much improvement she has is uncertain. ROV after US (2) Gallstones: Code(s): K80.20 - Calculus of gallbladder without cholecystitis without obstruction (3) Morbid obesity: Code(s): E66.01 - Morbid (severe) obesity due to excess calories Orders: Orders Complete Blood Count Auto Diff 03/09/23 K75.81 - Nonalcoholic steatohepatitis (BENOIT) US abdomen comp w elastography 03/09/23 K75.81 - Nonalcoholic steatohepatitis (BENOIT) Comprehensive Met. Panel 03/09/23 K75.81 - Nonalcoholic steatohepatitis (BENOIT) Alpha Fetoprotein 03/09/23 K75.81 - Nonalcoholic steatohepatitis (BENOIT) Coding Level of Care Code Est Pt Level 3 (84939) Diagnoses BENOIT (nonalcoholic steatohepatitis) K75.81 Gallstones K80.20 Morbid obesity E66.01
[2023-03-09 14:47] VITALS: BP 133/77; PULSE 113; BMI 37.8
== END 2023-03-09 15:26 | disposition home or self-care (01) ==
PROVIDERS: PCP Internal Medicine; Visit Provider Nurse Practitioner
DX: K75.81 Nonalcoholic steatohepatitis (NASH) (principal); K80.20 Calculus of gallbladder without cholecystitis without obstruction; E66.01 Morbid (severe) obesity due to excess calories
CPT/HCPCS: 99213

== ENCOUNTER → 2023-03-09 14:34 | Outpatient (BNVA) | payer OTHER, SELFPAY | PROVIDERS: PCP Internal Medicine; Visit Provider Nurse Practitioner | DX: K75.81 Nonalcoholic steatohepatitis (NASH) (principal); K80.20 Calculus of gallbladder without cholecystitis without obstruction; E66.01 Morbid (severe) obesity due to excess calories; Z68.37 Body mass index [BMI] 37.0-37.9, adult | CPT/HCPCS: 99212 ==

== ENCOUNTER 2023-04-05 09:05 | Outpatient (REF) | payer OTHER, SELFPAY ==
[2023-04-05 09:27] LABS: MANUAL DIFF FLAG NO
[2023-04-05 10:22] LABS: Basophils Percent Auto 0.6 % (0-2); Eosinophils Absolute Auto 0.1 X10*3/uL (0.0-0.4); Eosinophils Percent Auto 1.1 % (0-4); Hematocrit 37.3 % (37.0-47.0); Hemoglobin 12.3 g/dl (12.0-16.0); Imm Gran Abs Auto 0.01 X10*3/uL (0.00-0.03); Imm Gran Pct Auto 0.2 % (0.0-0.4); Lymphocytes Absolute Auto 1.9 X10*3/uL (1.2-4.9); Lymphocytes Percent Auto 37.2 % (20-40); Mean Corpuscular Hemoglobin 28.1 pg (27.0-33.0); Mean Corpuscular Volume 85.4 fL (80.0-98.0); Mean Platelet Volume 11.3 fL (9.4-12.3); Monocytes Absolute Auto 0.4 X10*3/uL (0.1-1.2); Monocytes Percent Auto 8.4 % (2-11); Neutrophils Absolute Auto 2.7 x10*3/uL (2.0-8.3); Neutrophils Percent Auto 52.5 % (45-73); Platelet Count 234 X10*3/uL (160-400); Red Blood Count 4.37 X10*6/uL (4.20-5.50); Red Cell Distribution Width 12.9 % (11.0-16.0); White Blood Count 5.2 X10*3/uL (4.8-10.8)
[2023-04-05 11:28] LABS: Alanine Aminotransferase 62 U/L (0-31); Albumin Level 4.4 g/dL (3.5-5.0); Alkaline Phosphatase 97 U/L (39-117); Anion Gap 15 (12-20); Aspartate Amino Transferase 42 U/L (5-31); Bilirubin Total 0.6 mg/dL (0.0-1.0); Blood Urea Nitrogen 10 mg/dL (9-16); Calcium 9.6 mg/dL (8.4-10.2); Carbon Dioxide 22 mmol/L (22-29); Chloride 106 mmol/L (96-108); Estimated Glomerular Filt Rate > 60; Glucose Random 250 mg/dL (60-115); Potassium 4.1 mmol/L (3.3-5.1); Sodium 139 mmol/L (135-145); Total Protein 8.1 g/dL (6.5-8.0)
[2023-04-06 13:18] LABS: Alpha Fetoprotein 2.1 ng/mL
== END 2023-04-05 09:06 | disposition home or self-care (01) ==
LOC: HO.LAB 09:05
PROVIDERS: PCP Internal Medicine; Visit Provider Nurse Practitioner
DX: K75.81 Nonalcoholic steatohepatitis (NASH) (principal)
CPT/HCPCS: 36415; 80053; 82105; 85025

== ENCOUNTER 2023-04-16 08:42 | Outpatient (REF) | payer OTHER, SELFPAY ==
--- NOTE | ~2023-04-16 | US_ITS ---
EXAMINATION: US COMPLETE ABDOMEN WITH LIVER ELASTOGRAPHY CLINICAL INFORMATION: Nonalcoholic steatohepatitis. COMPARISON: None available. TECHNIQUE: Real-time imaging of the abdominal viscera. Noninvasive ultrasound liver fibrosis assessment is performed using Sebastien ElastPQ point quantification shear wave elastography (2D-SWE) with a C5-2 MHz transducer. Multiple elastography samples are obtained. FINDINGS: PANCREAS: There is coarsening of parenchymal echotexture, suggesting fatty infiltration. The visualized pancreatic head and body are otherwise normal in appearance. The remainder of the pancreas is obscured from visualization by the overlying bowel gas. ABDOMINAL AORTA: The proximal, middle, and distal aortic segments are normal in caliber. INFERIOR VENA CAVA: Visualized portions are normal. LIVER: There is hepatomegaly. The liver demonstrates normal contour and increased echogenicity. No focal lesion or intrahepatic biliary duct dilatation. The right lobe measures 21.6 cm in length. The left lobe measures 16.0 cm in length. Portal flow is towards the liver (hepatopetal). Shear wave liver elastography median stiffness is 1.77 m/s (reference: normal median stiffness is 1.3 m/s or less). IQR/median stiffness to assess sampling precision is 0.07 (reference: good quality data set is IQR/median stiffness of 0.15 or less). GALLBLADDER: Normal. The gallbladder is physiologically distended without evidence of stones, sludge, polyps, wall thickening or pericholecystic fluid. COMMON BILE DUCT: Normal in caliber measuring 0.4 cm in diameter. RIGHT KIDNEY: Normal. No hydronephrosis. No renal calculi or focal parenchymal lesions. The kidney measures 14.5 cm in maximum dimension. LEFT KIDNEY: Normal. No hydronephrosis. No renal calculi or focal parenchymal lesions. The kidney measures 12.8 cm in maximum dimension. SPLEEN: Normal. The spleen measures 11.6 cm in maximum dimension. FREE FLUID: None. US/US abdomen comp w elastography IMPRESSION: 1. There is hepatomegaly. 2. There is generalized increase in hepatic echotexture, consistent with fatty infiltration or hepatocellular disease. Please correlate clinically. No focal hepatic mass or intrahepatic biliary dilatation is seen. 3. Liver elastography: Measurements are suggestive of compensated advanced chronic liver disease but need further test for confirmation. REFERENCE: Society of Radiologists in Ultrasound Liver Stiffness Thresholds (2020): LIVER STIFFNESS THRESHOLDS: *Liver Stiffness equal or less than 1.3 m/s: High probability of being normal. *Liver Stiffness less than 1.7 m/s: In the absence of other known clinical signs, rules out compensated advanced chronic liver disease. *Liver Stiffness 1.7-2.1 m/s: Suggestive of compensated advanced chronic liver disease but need further test for confirmation. *Liver Stiffness over 2.1 m/s: Rules in compensated advanced chronic liver disease. *Liver Stiffness over 2.4 m/s: Suggestive of clinically significant portal hypertension. QUALITY OF DATA SET: *IQR/Median value equal or less than 0.15 implies a quality data set. *IQR/Median value over 0.15 implies a poor quality data set. SIGNIFICANT CHANGE FROM PRIOR EXAM: Significant change if liver stiffness measurement is 10% or greater from prior exam. OTHER CONSIDERATIONS: The stage of liver fibrosis may be overestimated in the setting of acute hepatitis, liver inflammation, elevated liver function tests, hepatic vascular congestion, obstructive cholestasis, non-fasting state, and infiltrative diseases such as amyloidosis and lymphoma. In some patients with NAFLD, the liver stiffness thresholds for compensated advanced chronic liver disease may be lower. In causes other than viral hepatitis and NAFLD, liver stiffness thresholds are not well established.
== END 2023-04-16 08:43 | disposition home or self-care (01) ==
LOC: HO.US 08:42
PROVIDERS: PCP Internal Medicine; Visit Provider Nurse Practitioner
DX: K75.81 Nonalcoholic steatohepatitis (NASH) (principal)
CPT/HCPCS: 76705; 76981

== ENCOUNTER 2023-05-07 12:00 | Outpatient (RCR) | payer OTHER, SELFPAY | END 2023-10-06 14:36 | disposition home or self-care (01) | LOC: HO.PT 12:00 | PROVIDERS: PCP Internal Medicine; Visit Provider Physician Assistant | DX: M54.51 Vertebrogenic low back pain (principal) | CPT/HCPCS: 97110; 97162 ==

== ENCOUNTER 2023-09-10 11:06 | Outpatient (AMB) | payer OTHER, SELFPAY ==
--- NOTE | 2023-09-10 11:33 | MHC.OFFVIS ---
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 Intake Note: would like std testing and would like to have another child Information Interpreted: non-clinical & clinical Security Police Officer: Security Police Officer Present ([place]) Allergies penicillin V Allergy (Unknown, Verified 09/10/23 11:36) rash,hives, fever Medication List - Last Reconciled 09/10/23 by Farheen Krishnan CNM atorvastatin 40 mg PO DAILY blood sugar diagnostic (FreeStyle Test strips) Test bs three time a day cyclobenzaprine 5 mg PO TID PRN 7 days flash glucose scanning reader (FreeStyle Hannah 14 Day [place]) As directed flash glucose sensor (FreeStyle Hannah 14 Day Sensor kit) USE DIRECTED gabapentin 300 mg PO TID 1 month hydroxyzine HCl 25 mg PO TID PRN ibuprofen 800 mg PO Q8H PRN insulin glargine (Lantus Solostar U-100 Insulin) 15 units (0.15 mL) subcut QPM lancets As directed losartan 25 mg PO DAILY 90 days meloxicam 15 mg PO DAILY pen needle, diabetic (BD Hanny 2nd Gen Pen Needle) As directed daily sertraline 50 mg PO DAILY sitagliptin phosphate (Januvia) 50 mg PO DAILY tizanidine 2 mg PO BEDTIME PRN topiramate 100 mg PO DAILY trazodone 100 mg PO BEDTIME PRN 90 days Is last menstrual period known: Yes Last menstrual period: 09/02/23 Post menopausal: No 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 She found out her she did on her 3-4 months ago. She is diabetic and she is working on trying to eat well the weight management program did not work o.ut 2 0 for her but she maybe asking her primary care for re referral. She is trying to lose weight she says her blood sugars are under very good control she can tell when she eats something that has more carbs in it that she does not feel as good and she is being very good about it. She said she is interested in getting again but not right at the moment because right now she has not with anybody because her cheated on her in so they broke up but she wants to get healthier and plan for the future [facility] Medical History Endogenous depression Spondylosis of lumbar spine Radiculopathy, lumbar region Disc degeneration, lumbar High cholesterol Bilateral hand pain Surgical History History of back surgery H/O knee surgery History of section Family History (Updated 09/10/23 @ 11:39 by MANOSOR Cameron) Father Hypertension Mother Breast cancer Pelvic cancer Hypertension Diabetes Maternal Grandmother Diabetes Hypertension CVD (cardiovascular disease) Breast cancer Uterine cancer Ovarian cancer Maternal Grandfather Diabetes Hypertension CVD (cardiovascular disease) Lymphoma Social History Household Members: Children Housing: Apartment Alcohol intake: current Alcohol intake frequency: does not drink Patient Tobacco Use Status: Never used Tobacco e-Cigarette/Vaping Use: Never Used Second Hand Smoke Exposure: Yes service: No Current occupational status: disabled Cognitive needs: Yes (cane) Hearing needs: No Vision needs: No Female Reproductive History Menstrual Age of Menarche: 8 Duration of menses: 6-7 days Date of last menstrual period: 09/02/23 control method: none Total pregnancies: 3 Full term: 1 Number of Living Children: 1 Ab induced: 2 Date of last pap smear: 07/04/19 (negative) History of abnormal pap smear: No Physical Exam Vital Signs: Last Vital Signs BP 128/76 09/10/23 11:35 BMI result Body Mass Index 34.1 Const General: healthy appearing, comfortable, no acute distress, well developed and alert Nutritional Appearance: average body habitus Orientation/consciousness: patient oriented x3 Limitations: no limitations HEENT Head: Yes normocephalic Neck Neck: Yes normal visual inspection Chest Chest palpation & inspection: normal inspection of the chest Breast/axilla inspection: normal inspection of the breasts and normal inspection of the axillae Breast/axilla palpation: normal palpation of the breasts and normal palpation of the axillae Resp Effort & Inspection: normal respiratory effort GI Inspection: Yes normal to inspection, No Abdominal wall edema and No distended Palpation (GI): Soft to palpation and nontender Other: Speculum exam within normal limits vagina pink and moist cervix is nulliparous pink tightly closed friable with Pap. Uterus small anteverted mobile nontender fair tone with Kegel instructed on Kegel. General: Yes bladder normal to palpation External Female Exam: normal external appearance and normal appearance of the urethra Speculum Exam - Vagina: normal appearance of the vagina, normal palpation and normal vaginal discharge Speculum Exam - Cervix: normal appearance of the cervix, normal palpation and nontender Bimanual exam- vagina & uterus: normal bimanual exam, normal palpation, uterine size normal, bladder normal to palpation, consistency normal, normal palpation, uterine mobility normal, uterine shape normal, No Cervical tenderness present, non-tender and no cervical motion tenderness Bimanual Exam- Adnexa, other: normal adnexae, no masses, normal and No adnexal tenderness Neuro General: patient oriented x3 Assessment & Plan Assessment & Plan (1) Poorly controlled diabetes mellitus: Code(s): E11.65 - Type 2 diabetes mellitus with hyperglycemia (2) Encounter for screening examination for sexually transmitted disease: Code(s): Z11.3 - Encounter for screening for infections with a predominantly sexual mode of transmission (3) Well woman exam with routine gynecological exam: Code(s): Z01.419 - Encounter for gynecological examination (general) (routine) without abnormal findings Plan -----Discussed in this visit the following: healthy balanced diet, regular and consistent exercise, getting recommended health screens, doing the best she can for her particular health concerns, kegel exercises, pap smear screening and followup recommendations, mammography screening and SBE, normal changes in cycles in her life stage--- . Reviewed the importance of getting her diabetes under really good control and losing weight before considering discussed that if she did get it would be high-risk and she would need to start care from the very very very beginning at [facility] and have her blood sugars under very good control from the very start and ideally be planning the under the advice of whoever is managing her diabetes. Testing ordered for STIs and she can go to the lab downstairs she has not on the portal so she can call on Wednesday to get the test results. Orders: Orders HIV Ab/Ag Today E11.65 - Type 2 diabetes mellitus with hyperglycemia, Z01.419 - Encounter for gynecological examination (general) (routine) without abnormal findings, Z11.3 - Encounter for screening for infections with a predominantly sexual mode of transmission Hepatitis C Antibody Today E11.65 - Type 2 diabetes mellitus with hyperglycemia, Z01.419 - Encounter for gynecological examination (general) (routine) without abnormal findings, Z11.3 - Encounter for screening for infections with a predominantly sexual mode of transmission Hepatitis B Surface Antigen Today E1165 - Type 2 diabetes mellitus with hyperglycemia, Z01.419 - Encounter for gynecological examination (general) (routine) without abnormal findings, Z11.3 - Encounter for screening for infections with a predominantly sexual mode of transmission Syphilis Screen Today E11.65 - Type 2 diabetes mellitus with hyperglycemia, Z01.419 - Encounter for gynecological examination (general) (routine) without abnormal findings, Z11.3 - Encounter for screening for infections with a predominantly sexual mode of transmission Bacterial Vaginosis Panel Today Z20.2 - Contact with and (suspected) exposure to infections with a predominantly sexual mode of transmission CT NG by PCR Today Z20.2 - Contact with and (suspected) exposure to infections with a predominantly sexual mode of transmission Pap Smear Today Z12.4 - Encounter for screening for malignant neoplasm of cervix Coding Level of Care Code Est Pt Prev Care 18-39y(79286) Diagnoses Poorly controlled diabetes mellitus E11.65 Encounter for screening examination for sexually transmitted disease Z11.3 Well woman exam with routine gynecological exam Z01.419
[2023-09-10 11:35] VITALS: BP 128/76; BMI 34.1
== END 2023-09-10 12:58 | disposition home or self-care (01) ==
LOC: HO.HWSM 11:06
PROVIDERS: PCP Internal Medicine; Visit Provider Advanced Practice Midwife
DX: Z01.419 Encounter for gynecological examination (general) (routine) without abnormal findings (principal); E11.65 Type 2 diabetes mellitus with hyperglycemia
CPT/HCPCS: 99395

== ENCOUNTER 2023-09-10 11:06 | Outpatient (REF) | payer OTHER, SELFPAY ==
[2023-09-11 02:40] LABS: CT PCR DETECTED (Not Detect.); NG PCR NOT DETECTED (Not Detect.)
[2023-09-11 11:59] LABS: BV Int Neg Control Negative (Negative); BV Int Pos Control Positive (Positive)
[2023-09-17 11:09] LABS: HPV mRNA E6/E7 rflx Detected (Not Detected)
[2023-09-17 11:13] LABS: HPV 16 RNA NOT DETECTED (NOT DETECTED)
== END 2023-09-10 11:07 | disposition home or self-care (01) ==
LOC: HO.LNP 11:06
PROVIDERS: PCP Internal Medicine; Visit Provider Advanced Practice Midwife
DX: Z01.419 Encounter for gynecological examination (general) (routine) without abnormal findings (principal); E11.65 Type 2 diabetes mellitus with hyperglycemia; Z20.2 Contact with and (suspected) exposure to infections with a predominantly sexual mode of transmission; Z11.3 Encounter for screening for infections with a predominantly sexual mode of transmission; Z11.51 Encounter for screening for human papillomavirus (HPV)
CPT/HCPCS: 0353U; 87480; 87510; 87624; 87625; 87660; 88142; 99395

== ENCOUNTER 2023-09-24 13:50 | Outpatient (AMB) | payer OTHER, SELFPAY ==
[2023-09-24 13:57] VITALS: BP 132/90; PULSE 81; BMI 34.2
--- NOTE | 2023-09-24 13:57 | MHC.OFFVIS ---
Intake Vital Signs 09/24/23 13:57 Height 5 ft 10 in Weight 238 lb 1.588 oz BMI 34.2 BP 132/90 H Blood Pressure Location Lt brachial Position Sitting Pulse 81 Intake Visit Reasons: r/s from 09/06 Intake Note: Evie returns in office today in follow up of BENOIT. CC: Patient reports doing well today and denies having any GI symptoms. Passenger Solicitor Required: No Accompanied by: Self / Same As Patient Allergies penicillin V Allergy (Unknown, Verified 09/24/23 14:04) rash,hives, fever HPI r/s from 09/06 HPI Details Assessment & Plan (1) BENOIT (nonalcoholic steatohepatitis): Comment: BASELINE LABS/WORK UP BENOIT fibrosis stage F2 by liver biopsy 01/2020, 01/2020: Autoimmune workup negative, ceruloplasmin normal, alpha 1 antitrypsin level normal, hemochromatosis screen is negative, fibrosis staging is F 2 by liver biopsy, 12/2019 baseline alpha fetoprotein is 1.3, ferritin elevated at 562, she has negative hepatitis a B and C. she is morbidly obese at this time. CURRENT LABS Laboratory Tests 07/18/2200/ 12:1112:1113:20 Hgb A1c (Clinic) 7.9 H Total Bilirubin 0.4 Direct Bilirubin 0.2 AST 41 H D ALT 79 H Alkaline Phosphatase 105 Alpha Fetoprotein 2.0 ULTRASOUND OF THE ABDOMEN 09/02/21 US/US abdomen limited IMPRESSION: Slightly echogenic liver probably representing fatty infiltration. Gallstones. Limited visualization of the tail of the pancreas. Code(s): K75.81 - Nonalcoholic steatohepatitis (BENOIT) Plan: She says her diabetes is controlled, no meds changes just diet changes. She is limiting carbs, candy etc. She is agreeable to repeat labs and will get US with elastography. Her gallstones remaining asymptomatic. No other new medical conditions, except that she had 2 back surgeries for herniated L5 disc. She re herniated it recovering, and despite surgery she still has numbness, weakness and pain right leg/foot. She is currently in PT and how much improvement she has is uncertain. ROV after US (2) Gallstones: Code(s): K80.20 - Calculus of gallbladder without cholecystitis without obstruction (3) Morbid obesity: Code(s): E66.01 - Morbid (severe) obesity due to excess calories Orders: Orders Complete Blood Cou nt Auto Diff 03/09/23 K75.81 - Nonalcoho lic steatohepatiti s (BENOIT) US abdomen comp w elastography 03/09/23 K75.81 - Nonalcoho lic steatohepatiti s (BENOIT) Comprehensive Met. Panel 03/09/23 K75.81 - Nonalcoho lic steatohepatiti s (BENOIT) Alpha Fetoprotein 03/09/23 K75.81 - Nonalcoho lic steatohepatiti s (BENOIT) LABS: Laboratory Tests 04/05/23 09:26 WBC 5.2 Hgb 12.3 Hct 37.3 Plt Count 234 Estimated GFR > 60 Total Bilirubin 0.6 AST 42 H ALT 62 H Alkaline Phosphata se 97 Alpha Fetoprotein 2.1 ULTRASOUND OF THE ABDOMEN WITH ELASTOGRAPHY (F1-F2) 04/20/23 FINDINGS: PANCREAS: There is coarsening of parenchymal echotexture, suggesting fatty infiltration. The visualized pancreatic head and body are otherwise normal in appearance. The remainder of the pancreas is obscured from visualization by the overlying bowel gas. ABDOMINAL AORTA: The proximal, middle, and distal aortic segments are normal in caliber. INFERIOR VENA CAVA: Visualized portions are normal. LIVER: There is hepatomegaly. The liver demonstrates normal contour and increased echogenicity. No focal lesion or intrahepatic biliary duct dilatation. The right lobe measures 21.6 cm in length. The left lobe measures 16.0 cm in length. Portal flow is towards the liver (hepatopetal). Shear wave liver elastography median stiffness is 1.77 m/s (reference: normal median stiffness is 1.3 m/s or less). IQR/median stiffness to assess sampling precision is 0.07 (reference: good quality data set is IQR/median stiffness of 0.15 or less). GALLBLADDER: Normal. The gallbladder is physiologically distended without evidence of stones, sludge, polyps, wall thickening or pericholecystic fluid. COMMON BILE DUCT: Normal in caliber measuring 0.4 cm in diameter. RIGHT KIDNEY: Normal. No hydronephrosis. No renal calculi or focal parenchymal lesions. The kidney measures 14.5 cm in maximum dimension. LEFT KIDNEY: Normal. No hydronephrosis. No renal calculi or focal parenchymal lesions. The kidney measures 12.8 cm in maximum dimension. SPLEEN: Normal. The spleen measures 11.6 cm in maximum dimension. FREE FLUID: None. US/US abdomen comp w elastography IMPRESSION: 1. There is hepatomegaly. 2. There is generalized increase in hepatic echotexture, consistent with fatty infiltration or hepatocellular disease. Please correlate clinically. No focal hepatic mass or intrahepatic biliary dilatation is seen. 3. Liver elastography: Measurements are suggestive of compensated advanced chronic liver disease but need further test for confirmation. 04/20/23 TODAY'S VISIT We review the results and her transaminases are greatly improved since 2019. She has lost 25 lbs with intentional dieting. I believe that she is gone from triple digit transaminases to double digits largely because of her improved diabetes control and the weight loss does not hurt either. Over the past week she has been having pain in the right lower to mid abdomen. It is in the same place, worse with side laying or leaning against the area on the side. It is a burning/aching/throbbing sensation it is intermittent, at times coming and going and at times lasting all day. It does not seem to be r/t eating or BM. She would thought this was due to her gallstones but given the absence of gallstones on the most recent ultrasound and the lack of colicky nature or relation to eating or moving the bowels I doubt this. However we could consider a HIDA scan going forward. She has a recent chlamydia infection because her cheated on her. This may be r/t the pain, unsure. Watch and wait for now, along with a trial of dicyclomine to see if this affects the pain when it is at its more severe. ROV 6-8 weeks. [facility] Medical History (Updated 09/24/23 @ 14:31 by Leonra Ward, ANP-C) Preprocedural examination Annual physical exam Well woman exam with routine gynecological exam Endogenous depression Spondylosis of lumbar spine Radiculopathy, lumbar region Disc degeneration, lumbar High cholesterol Bilateral hand pain Surgical History History of back surgery H/O knee surgery History of section Family History (Updated 09/10/23 @ 11:39 by MANSOOR Cameron) Father Hypertension Mother Breast cancer Pelvic cancer Hypertension Diabetes Maternal Grandmother Diabetes Hypertension CVD (cardiovascular disease) Breast cancer Uterine cancer Ovarian cancer Maternal Grandfather Diabetes Hypertension CVD (cardiovascular disease) Lymphoma Social History Household Members: Children Housing: Apartment Alcohol intake: current Alcohol intake frequency: does not drink Patient Tobacco Use Status: Never used Tobacco e-Cigarette/Vaping Use: Never Used Second Hand Smoke Exposure: Yes service: No Current occupational status: disabled Cognitive needs: Yes (cane) Hearing needs: No Vision needs: No Female Reproductive History Menstrual Age of Menarche: 8 Review of Systems Const Denies fatigue, Denies fever(s), Denies night sweats, Denies poor appetite and Reports weight loss ENT Reports Normal hearing present, Denies dental pain, Denies dysphagia, Denies hearing loss, Denies mouth pain, Denies odynophagia, Denies throat swelling, Denies tongue swelling and Reports other (Dentition adequate) Card Reports no additional complaints Resp Reports no additional complaints GI Details: Reports abdominal pain, Denies melena, Denies bloating, Denies hematochezia, Denies constipation, Denies GI cramping, Denies dysphagia, Denies excessive flatus, Denies early satiety, Denies heartburn, Denies diarrhea, Denies nausea, Denies odynophagia, Denies vomiting and Denies hematemesis Skin/Breast Denies pruritus, Denies lesions, Denies rash and Denies jaundice Neuro Reports Normal hearing present and Denies Abnormal speech present Endo Denies fatigue Aller/Immun Denies throat swelling and Denies tongue swelling Physical Exam Vital Signs: Last Vital Signs Pulse 81 09/24/23 13:57 BP 132/90 H 09/24/23 13:57 BMI result Body Mass Index 34.2 Const General: cooperative, no acute distress, well developed and well groomed Nutritional Appearance: well nourished and obese Orientation/consciousness: oriented to person, oriented to place and oriented to time Limitations: No language barrier HEENT Head: Yes normocephalic and Yes atraumatic Eyes General: appearance normal, both eyes and all related structures Pupils: Equal, round and reactive pupils present Neck Neck: Yes normal visual inspection and Yes no lymphadenopathy Thyroid: Thyroid normal Resp Effort & Inspection: normal respiratory effort and able to speak in complete sentences Auscultation: clear to auscultation bilaterally Cardio Rate: regular rate Rhythm: regular rhythm Heart sounds: Normal, physiologic split S2 sound present Peripheral pulses: radial pulses present and posterior tibial pulses present GI Inspection: No distended, No Abdominal panniculus present and Yes obesity Palpation (GI): Soft to palpation, nontender, no guarding, not rigid and No hepatosplenomegaly present Percussion: Yes normal to percussion Auscultation: normal bowel sounds Rectal Exam - Female: deferred Skin General skin exam: no rashes or lesions noted, turgor normal, skin not dry, no jaundice, No spider nevi and no striae Rashes: no rashes Nails: normal Neuro General: oriented to person, oriented to place and oriented to time Cranial nerves: Yes Equal, round and reactive pupils present and Yes Normal hearing present Speech: No Abnormal speech present Extrem General: Yes normal to inspection, No clubbing, No cyanosis and No edema Psych Appearance: grossly normal and well kempt Mental Status: mental status grossly normal Speech and movement: Normal speech and movement present Affect: normal affect Attitude: cooperative Thought process: Normal thought process present and not confabulating Thought content: Normal thought content present Insight: Limited insight present (Psych) Judgement: Limited judgement present (Psych) Results Reviewed Results Reviewed: Laboratory Tests 04/05/23 09:26 WBC 5.2 Hgb 12.3 Hct 37.3 Plt Count 234 Estimated GFR > 60 Total Bilirubin 0.6 AST 42 H ALT 62 H Alkaline Phosphatase 97 Alpha Fetoprotein 2.1 ULTRASOUND OF THE ABDOMEN WITH ELASTOGRAPHY (F1-F2) 04/20/23 FINDINGS: PANCREAS: There is coarsening of parenchymal echotexture, suggesting fatty infiltration. The visualized pancreatic head and body are otherwise normal in appearance. The remainder of the pancreas is obscured from visualization by the overlying bowel gas. ABDOMINAL AORTA: The proximal, middle, and distal aortic segments are normal in caliber. INFERIOR VENA CAVA: Visualized portions are normal. LIVER: There is hepatomegaly. The liver demonstrates normal contour and increased echogenicity. No focal lesion or intrahepatic biliary duct dilatation. The right lobe measures 21.6 cm in length. The left lobe measures 16.0 cm in length. Portal flow is towards the liver (hepatopetal). Shear wave liver elastography median stiffness is 1.77 m/s (reference: normal median stiffness is 1.3 m/s or less). IQR/median stiffness to assess sampling precision is 0.07 (reference: good quality data set is IQR/median stiffness of 0.15 or less). GALLBLADDER: Normal. The gallbladder is physiologically distended without evidence of stones, sludge, polyps, wall thickening or pericholecystic fluid. COMMON BILE DUCT: Normal in caliber measuring 0.4 cm in diameter. RIGHT KIDNEY: Normal. No hydronephrosis. No renal calculi or focal parenchymal lesions. The kidney measures 14.5 cm in maximum dimension. LEFT KIDNEY: Normal. No hydronephrosis. No renal calculi or focal parenchymal lesions. The kidney measures 12.8 cm in maximum dimension. SPLEEN: Normal. The spleen measures 11.6 cm in maximum dimension. FREE FLUID: None. US/US abdomen comp w elastography IMPRESSION: 1. There is hepatomegaly. 2. There is generalized increase in hepatic echotexture, consistent with fatty infiltration or hepatocellular disease. Please correlate clinically. No focal hepatic mass or intrahepatic biliary dilatation is seen. 3. Liver elastography: Measurements are suggestive of compensated advanced chronic liver disease but need further test for confirmation. 04/20/23 Assessment & Plan Assessment & Plan (1) BENOIT (nonalcoholic steatohepatitis): Comment: BASELINE LABS/WORK UP BENOIT fibrosis stage F2 by liver biopsy 01/2020, 01/2020: Autoimmune workup negative, ceruloplasmin normal, alpha 1 antitrypsin level normal, hemochromatosis screen is negative, fibrosis staging is F 2 by liver biopsy, 12/2019 baseline alpha fetoprotein is 1.3, ferritin elevated at 562, she has negative hepatitis a B and C. she is morbidly obese at this time. AST/ALT 161/155 with a GGT of 75 and normal total bilirubin and alk-phos ULTRASOUND OF THE ABDOMEN WITH ELASTOGRAPHY (F1-F2) 04/20/23 CURRENT LABS 09:26 WBC 5.2 Hgb 12.3 Hct 37.3 Plt Count 234 Estimated GFR > 60 Total Bilirubin 0.6 AST 42 H ALT 62 H Alkaline Phosphatase 97 Alpha Fetoprotein 2.1 ULTRASOUND OF THE ABDOMEN WITH ELASTOGRAPHY (F1-F2) 04/20/23 ULTRASOUND OF THE ABDOMEN 04/20/23 IMPRESSION: 1. There is hepatomegaly. 2. There is generalized increase in hepatic echotexture, consistent with fatty infiltration or hepatocellular disease. Please correlate clinically. No focal hepatic mass or intrahepatic biliary dilatation is seen. 3. Liver elastography: Measurements are suggestive of compensated advanced chronic liver disease but need further test for confirmation. 04/20/23 Code(s): K75.81 - Nonalcoholic steatohepatitis (BENOIT) (2) Morbid obesity: Code(s): E66.01 - Morbid (severe) obesity due to excess calories (3) Gallstones: Comment: not seen on most recent US Code(s): K80.20 - Calculus of gallbladder without cholecystitis without obstruction (4) Chlamydia infection: Comment: 09/10/2023 testing shows positive chlamydia (and Gardnerella) patient's phone not accept thing multiple calls. Registered letter to be sent needs treatment. Code(s): A74.9 - Chlamydial infection, unspecified (5) RUQ abdominal pain: Code(s): R10.11 - Right upper quadrant pain Plan We review the results and her transaminases are greatly improved since 2019. She has lost 25 lbs with intentional dieting. I believe that she is gone from triple digit transaminases to double digits largely because of her improved diabetes control and the weight loss does not hurt either. Over the past week she has been having pain in the right lower to mid abdomen. It is in the same place, worse with side laying or leaning against the area on the side. It is a burning/aching/throbbing sensation it is intermittent, at times coming and going and at times lasting all day. It does not seem to be r/t eating or BM. She would thought this was due to her gallstones but given the absence of gallstones on the most recent ultrasound and the lack of colicky nature or relation to eating or moving the bowels I doubt this. However we could consider a HIDA scan going forward. She has a recent chlamydia infection because her cheated on her. This may be r/t the pain, unsure. Watch and wait for now, along with a trial of dicyclomine to see if this affects the pain when it is at its more severe. ROV 6-8 weeks. Medications: New dicyclomine 10 mg PO QID 120 caps 3RF A74.9 - Chlamydial infection, unspecified, R10.11 - Right upper quadrant pain Coding Level of Care Code Est Pt Level 3 (56125) Diagnoses BENOIT (nonalcoholic steatohepatitis) K75.81 Morbid obesity E66.01 Gallstones K80.20 Chlamydia infection A74.9 RUQ abdominal pain R10.11
== END 2023-09-24 14:35 | disposition home or self-care (01) ==
PROVIDERS: PCP Internal Medicine; Visit Provider Nurse Practitioner
DX: K75.81 Nonalcoholic steatohepatitis (NASH) (principal); E66.01 Morbid (severe) obesity due to excess calories; K80.20 Calculus of gallbladder without cholecystitis without obstruction; A74.9 Chlamydial infection, unspecified; R10.11 Right upper quadrant pain
CPT/HCPCS: 99213

== ENCOUNTER → 2023-09-24 13:50 | Outpatient (BNVA) | payer OTHER, SELFPAY | PROVIDERS: PCP Internal Medicine; Visit Provider Nurse Practitioner | DX: K75.81 Nonalcoholic steatohepatitis (NASH) (principal); K80.20 Calculus of gallbladder without cholecystitis without obstruction; E66.01 Morbid (severe) obesity due to excess calories; A74.9 Chlamydial infection, unspecified; R10.11 Right upper quadrant pain | CPT/HCPCS: 99212 ==

== ENCOUNTER 2023-10-19 08:40 | Outpatient (REF) | payer OTHER, SELFPAY ==
[2023-10-19 10:13] LABS: Syphilis Screen Nonreactive (Nonreactive)
[2023-10-19 10:18] LABS: HBsAGNum1 0.36 S/CO (0.00-0.99); HIV AB/AG Nonreactive (Nonreactive); HIV Num 1 0.04 S/CO (0.00-0.99); Hepatitis B Surface Antigen Negative (Negative); ~Hepatitis C Antibody Nonreactive (Nonreactive)
[2023-10-19 12:12] LABS: Hematocrit 35.7 % (37.0-47.0); Hemoglobin 11.8 g/dl (12.0-16.0); Mean Corpuscular HGB Conc 33.1 g/dl (31.0-35.0); Mean Corpuscular Hemoglobin 28.2 pg (27.0-33.0); Mean Corpuscular Volume 85.4 fL (80.0-98.0); Mean Platelet Volume 11.5 fL (9.4-12.3); Platelet Count 229 X10*3/uL (160-400); Red Blood Count 4.18 X10*6/uL (4.20-5.50); Red Cell Distribution Width 13.2 % (11.0-16.0); White Blood Count 5.8 X10*3/uL (4.8-10.8)
[2023-10-19 13:07] LABS: Alanine Aminotransferase 25 U/L (0-31); Albumin Level 4.6 g/dL (3.5-5.0); Alkaline Phosphatase 64 U/L (39-117); Anion Gap 10 (12-20); Aspartate Amino Transferase 22 U/L (5-31); Bilirubin Direct 0.1 mg/dL (0.0-0.5); Bilirubin Total 0.6 mg/dL (0.0-1.0); Blood Urea Nitrogen 10 mg/dL (9-16); Calcium 9.5 mg/dL (8.4-10.2); Carbon Dioxide 25 mmol/L (22-29); Chloride 108 mmol/L (96-108); Cholesterol 215 mg/dL (<200); Estimated Glomerular Filt Rate > 60; Glucose Random 88 mg/dL (60-115); HDL Cholesterol 36 mg/dL (>40); LDL Cholesterol Calculated 130 mg/dL (<100); Sodium 139 mmol/L (135-145); Total Protein 8.3 g/dL (6.5-8.0); Triglycerides 249 mg/dL (<150)
[2023-10-19 13:09] LABS: Thyroid Stimulating Hormone 1.35 uIU/mL (0.32-4.0)
[2023-10-19 13:19] LABS: Appearance Urine Cloudy; Color Urine Yellow; Glucose Urine UA Negative (Negative); Leukocyte Esterase Urine Negative (Negative); Nitrite Urine Negative (Negative); Urine Blood Negative (Negative); Urine Ketones Negative (Negative); Urine Protein Negative (Neg-Trace)
[2023-10-19 13:37] LABS: Creatinine Urine 155.31 mg/dL
== END 2023-10-19 08:41 | disposition home or self-care (01) ==
LOC: HO.LAB 08:40
PROVIDERS: Absent Provider Internal Medicine; PCP Internal Medicine; Visit Provider Advanced Practice Midwife
DX: Z11.4 Encounter for screening for human immunodeficiency virus [HIV] (principal); E11.65 Type 2 diabetes mellitus with hyperglycemia; F33.2 Major depressive disorder, recurrent severe without psychotic features; E66.01 Morbid (severe) obesity due to excess calories
CPT/HCPCS: 36415; 80048; 80061; 80076; 81003; 82043; 82570; 84443; 85027; 86780; 86803; 87340; 87389

== ENCOUNTER 2023-10-19 08:56 | Outpatient (AMB) | payer OTHER, SELFPAY ==
--- NOTE | 2023-10-19 10:25 | MHC.PC.OV ---
Vital Signs 10/19/23 10:27 Height 5 ft 10 in Weight 236 lb BMI 33.9 BP 120/80 Blood Pressure Location Lt brachial Position Sitting Pulse 70 Pulse Source Pulse Oximeter Pulse Oximetry (%) 98 Oxygen Delivery Method Room Air Intake Visit Reasons: Follow Up Intake Note: Patient is here to follow up on DM, High Cholesterol. Complaint of possible yeast infect and uti. Symptoms are itchy, burning, uncomfortable, frequency. Intensive Care Nurse Required: No Drywall Sander: Not Required per policy Accompanied by: Self / Same As Patient Allergies penicillin V Allergy (Unknown, Verified 10/19/23 11:16) rash,hives, fever Medication List - Last Reconciled 10/19/23 by Rogelio Tadeo MD atorvastatin 40 mg PO DAILY blood sugar diagnostic (FreeStyle Test strips) Test bs three time a day flash glucose scanning reader (FreeStyle Hannah 14 Day [place]) As directed flash glucose sensor (FreeStyle Hannah 14 Day Sensor kit) USE DIRECTED fluconazole 150 mg PO Q3D 2 doses gabapentin 300 mg PO TID 1 month hydrocortisone 2.5% 1 appl topical BID PRN hydroxyzine HCl 25 mg PO TID PRN ibuprofen 800 mg PO Q8H PRN insulin glargine (Lantus Solostar U-100 Insulin) 15 units (0.15 mL) subcut QPM lancets As directed losartan 25 mg PO DAILY 90 days pen needle, diabetic (BD Hanny 2nd Gen Pen Needle) As directed daily sertraline 50 mg PO DAILY sitagliptin phosphate (Januvia) 50 mg PO DAILY tizanidine 2 mg PO BEDTIME PRN topiramate 100 mg PO DAILY trazodone 100 mg PO BEDTIME PRN 90 days Tobacco use date assessed: 10/19/23 Dental Screening Dental Screen Date: 10/19/23 Did you have a dental visit in the last 12 months?: No Did you have a dental problem in the last 6 months where you did not have access to dental care?: No Was dental information given to patient?: Patient has dentist HPI Follow Up HPI Details 28-year-old female presents to the office to discuss her chronic medical conditions. Patient has lost 25 lb since last office visit. Her blood sugars have become more stable. Has been following a healthy diet. Recently was at her OBGYN. She tested positive for chlamydia and Melita infection. Patient would like a refill on the Diflucan. Continues to experience burning symptoms in the vaginal area. Depression symptoms continue. She sees a therapist 2 to 3 times a week. Patient sees a neurosurgeon for her lower back pain. They have offered to fuse the spine if she loses more weight. [facility] Medical History Preprocedural examination Annual physical exam Well woman exam with routine gynecological exam Endogenous depression Spondylosis of lumbar spine Radiculopathy, lumbar region Disc degeneration, lumbar High cholesterol Bilateral hand pain Surgical History History of back surgery H/O knee surgery History of section Family History Father Hypertension Mother Breast cancer Pelvic cancer Hypertension Diabetes Maternal Grandmother Diabetes Hypertension CVD (cardiovascular disease) Breast cancer Uterine cancer Ovarian cancer Maternal Grandfather Diabetes Hypertension CVD (cardiovascular disease) Lymphoma Social History Household Members: Children Housing: Apartment Alcohol intake: current Alcohol intake frequency: does not drink Patient Tobacco Use Status: Never used Tobacco e-Cigarette/Vaping Use: Never Used Second Hand Smoke Exposure: Yes service: No Current occupational status: disabled Cognitive needs: Yes (cane) Hearing needs: No Vision needs: No Female Reproductive History Menstrual Age of Menarche: 8 Questionnaire PHQ-9 Over the last 2 weeks, how often have you been bothered by any of the following problems? 1. Little interest or pleasure in doing things: nearly every day 2. Feeling down, depressed, or hopeless: nearly every day (currently in treatment) 3. Trouble falling or staying asleep, or sleeping too much: nearly every day 4. Feeling tired or having little energy: nearly every day 5. Poor appetite or overeating: nearly every day 6. Feeling bad about yourself - or that you are a failure or have let yourself or your family down: not at all 7. Trouble concentrating on things, such as reading the newspaper or watching television: nearly every day 8. Moving or speaking so slowly that other people could have noticed. Or the opposite - being so fidgety or restless that you have been moving around a lot more than usual: nearly every day 9. Thoughts that you would be better off or of hurting yourself in some way: not at all Total score: 21 Depression Screening Interpretation: Positive Depression Screening Follow-up: Existing condition and In treatment Depression Screening Done: Yes Source: Developed by Drs. Emile Prince, Andra Barfield, Velasquez Frances and colleagues, with an educational keeley from [employer]. Thrive Questionnaire Date Thrive assessed: 10/19/23 I am a: Patient What is your living situation today?: I have a steady place to live Within the past 12 months, did the food you bought not last and you didn't have the money to get more?: Never true Within the past 12 months, did you worry whether your food would run out before you got money to buy more?: Never true Do you have trouble paying for medicines?: No Do you have trouble getting transportation to medical appointments?: No Do you have trouble paying your heating and electricity bill?: No Do you have trouble taking care of your child, family member or friend?: No Do you have trouble with day-to-day activities such as bathing, preparing meals, shopping, managing finances, etc.?: No Are you currently unemployed and looking for a job?: No Are you interested in more education?: No Currently or been in a relationship where the following occur: no concerns reported THRIVE Score: 0 AUDIT C Alcohol Use Questionnaire (AUDIT-C) 1. How often do you have a drink containing alcohol?: Never Total Score: 0 KAI-7 AMB Questionnaire KAI-7 Date KAI - 7 assessed: 10/19/23 Feeling nervous, anxious, or on edge: 3 = Nearly every day (currently in treatment) Not being able to stop or control worryin = Nearly every day Worrying too much about different things: 3 = Nearly every day Trouble relaxin = Nearly every day Being so restless that it is hard to sit still: 3 = Nearly every day Becoming easily annoyed or irritable: 3 = Nearly every day Feeling afraid as if something awful might happen: 0 = Not at all Total KAI-7 score (0-4 normal; 5-9 mild; 10-14 moderate; 15-21 severe): 18 Source: Developed by Drs. Emile Prince, Andra Barfield, Velasquez Frances and colleagues, with an educational keeley from [employer]. Physical exam (Primary Care) Vital Signs: Last Vital Signs Pulse 70 10/19/23 10:27 BP 120/80 10/19/23 10:27 Pulse Ox 98 10/19/23 10:27 Oxygen Delivery Method Room Air 10/19/23 10:27 Care Plan Goal for BP management: Blood pressure is stable. Continue current medications. BMI result Body Mass Index 33.9 BMI Assessment/Plan discussion: High (1 lb per week weight loss suggested.) BMI High, discussed plan: lifestyle, weight reduction, dietary and physical activity Tobacco/Smoking Status: Tobacco use Status Tobacco use date assessed 10/19/23 10/19/23 10:38 Patient Tobacco Use Status Never used Tobacco 10/19/23 10:38 e-Cigarette/Vaping Use Never Used 10/19/23 10:38 PHQ-9: PHQ-9 Score PHQ-9: Total score 21 10/19/23 10:38 Depression Screening Interpretation: Positive Depression Screening Follow-up: Existing condition and In treatment Thrive Assessment: Date of Thrive Assessment Date Thrive assessed 10/19/23 10/19/23 10:38 Currently or been in a relationship where the following occur: no concerns reported Const General: cooperative and healthy appearing Nutritional Appearance: well nourished Orientation/consciousness: patient oriented x3 Limitations: no limitations HENMT Head: Yes normal to inspection Eyes General: appearance normal, both eyes and all related structures Neck Neck: Yes normal visual inspection Chest Chest palpation & inspection: normal palpation of entire chest wall Resp Effort & Inspection: normal respiratory effort Neuro General: patient oriented x3 Results AMB Hemoglobin A1c AMB Hemoglobin A1c 5.5 % Last Edit by MANSOOR Fraga on 10/19/23 10:43 AMB Urinalysis, Automated UA Leukoctes 0 Bryce/uL Last Edit by MANSOOR Fraga on 10/19/23 10:48 UA Nitrite Negative Last Edit by MANSOOR Fraga on 10/19/23 10:48 UA Urobilinogen 0 mg/dL Last Edit by MANSOOR Fraga on 10/19/23 10:48 UA Protein 1 mg/dL Last Edit by MANSOOR Fraga on 10/19/23 10:48 UA pH 5.5 Last Edit by MANSOOR Fraga on 10/19/23 10:48 UA Blood 0 Darius/uL Last Edit by MANSOOR Fraga on 10/19/23 10:48 UA Specific [place] 1.030 Last Edit by MANSOOR Fraga on 10/19/23 10:48 UA Ketone Negative Last Edit by Sher Kim Franchesca on 10/19/23 10:48 UA Bilirubin 0 mg/dL Last Edit by MANSOOR Fraga on 10/19/23 10:48 UA Glucose 0 mg/dL Last Edit by MANSOOR Fraga on 10/19/23 10:48 Results Reviewed Results Reviewed: Laboratory Last Values Hgb A1c (Clinic) 5.5 % (4.0-6.0) 10/19/23 10:24 Urine pH (Auto) 5.5 10/19/23 10:24 Specific [place] (Auto) 1.030 10/19/23 10:24 Urine Protein (Auto) 1 mg/dL 10/19/23 10:24 Glucose (UA)(Auto) 0 mg/dL 10/19/23 10:24 Urine Ketones (Auto) Negative 10/19/23 10:24 Urine Blood (Auto) 0 Darius/uL 10/19/23 10:24 Urine Nitrite (Auto) Negative 10/19/23 10:24 Urine Bilirubin (Auto) 0 mg/dL 10/19/23 10:24 Urine Urobilinogen (Auto) 0 mg/dL 10/19/23 10:24 Leukocyte Esterase (Auto) 0 Bryce/uL 10/19/23 10:24 Assessment and Plan Assessment & Plan (1) Endogenous depression: Code(s): F33.2 - Major depressive disorder, recurrent severe without psychotic features Plan: Continue the therapy sessions. Compliant with medications urged. (2) Poorly controlled diabetes mellitus: Code(s): E11.65 - Type 2 diabetes mellitus with hyperglycemia Plan: A1c has improved. Continue medications at same dosage. Orders: Orders AMB Urinalysis Automated Today Z13.9 - Encounter for screening, unspecified AMB Hemoglobin A1c Today E11.65 - Type 2 diabetes mellitus with hyperglycemia Medications: New fluconazole 150 mg PO Q3D 2 tabs 0RF 2 doses hydrocortisone 2.5% 1 appl topical BID PRN 20 grams 0RF skin irritation Coding Level of Care Code Est Pt Level 4 (23506) Diagnoses Endogenous depression F33.2 Poorly controlled diabetes mellitus E11.65
[2023-10-19 10:27] VITALS: BP 120/80; PULSE 70; O2SAT 98; BMI 33.9
== END 2023-10-19 12:08 | disposition home or self-care (01) ==
PROVIDERS: PCP Internal Medicine; Visit Provider Internal Medicine
DX: E11.65 Type 2 diabetes mellitus with hyperglycemia (principal); F33.2 Major depressive disorder, recurrent severe without psychotic features; E66.9 Obesity, unspecified; Z68.33 Body mass index [BMI] 33.0-33.9, adult; N89.8 Other specified noninflammatory disorders of vagina
CPT/HCPCS: 81003; 83036; 99214

== ENCOUNTER 2023-11-08 08:45 | Outpatient (REF) | payer OTHER, SELFPAY | END 2023-11-08 08:46 | disposition home or self-care (01) | LOC: HO.LNP 08:45 | PROVIDERS: PCP Internal Medicine; Visit Provider Obstetrics & Gynecology | DX: R87.610 Atypical squamous cells of undetermined significance on cytologic smear of cervix (ASC-US) (principal); R87.810 Cervical high risk human papillomavirus (HPV) DNA test positive | CPT/HCPCS: 57454; 88305 ==

== ENCOUNTER 2023-11-08 08:45 | Outpatient (AMB) | payer OTHER, SELFPAY ==
--- NOTE | 2023-11-08 09:02 | MHC.OFFVIS ---
Vital Signs 11/08/23 09:20 Height 5 ft 10 in Weight 235 lb 14.314 oz BMI 33.8 BP 120/74 Intake Visit Reasons: Colposcopy Shift Production Supervisor Required: No Information Interpreted: non-clinical & clinical Franchise Business Consultant: Franchise Business Consultant Present (Lauren MAX) Accompanied by: Self / Same As Patient Allergies penicillin V Allergy (Unknown, Verified 11/08/23 09:21) rash,hives, fever Is last menstrual period known: Yes Last menstrual period: 11/02/23 HPI Comments Details: Presenting for colposcopy for a Pap smear showing ascus/HPV E6/E7 positive, HPV 16/18/45 negative [facility] Medical History Preprocedural examination Annual physical exam Well woman exam with routine gynecological exam Endogenous depression Spondylosis of lumbar spine Radiculopathy, lumbar region Disc degeneration, lumbar High cholesterol Bilateral hand pain Surgical History History of back surgery H/O knee surgery History of section Family History Father Hypertension Mother Breast cancer Pelvic cancer Hypertension Diabetes Maternal Grandmother Diabetes Hypertension CVD (cardiovascular disease) Breast cancer Uterine cancer Ovarian cancer Maternal Grandfather Diabetes Hypertension CVD (cardiovascular disease) Lymphoma Social History Household Members: Children Housing: Apartment Alcohol intake: current Alcohol intake frequency: does not drink Patient Tobacco Use Status: Never used Tobacco e-Cigarette/Vaping Use: Never Used Second Hand Smoke Exposure: Yes service: No Current occupational status: disabled Cognitive needs: Yes (cane) Hearing needs: No Vision needs: No Female Reproductive History Menstrual Age of Menarche: 8 Date of last menstrual period: 11/02/23 Review of Systems Const All systems reviewed & are unremarkable except as noted in HPI and below Reports as per HPI and Reports no additional complaints GI Reports no additional complaints Reports no additional complaints Physical Exam Vital Signs: Last Vital Signs BP 120/74 11/08/23 09:20 BMI result Body Mass Index 33.8 Office Procedures Colposcopy Colposcopy: Pre-Procedure Counseling: Before beginning the procedure, I conducted comprehensive counseling with the patient. We thoroughly discussed the procedure itself, including its details, alternatives, and all associated risks. This included but not limited to the following complications such as bleeding, infection, and injury to the vagina, bladder, and vessels, as well as the potential need for transfusion with all its associated risks. Subsequently, the patient sign the consent. Pap smear result: Ascus/HPV E6/E7 positive, HPV 16/18/45 negative. Urine test in office = Negative Procedure: During the procedure, the following steps were performed: A speculum was inserted, and acetic acid was applied. Colposcopy was conducted, allowing visualization of the transformation zone. Acetowhite lesions were identified at the 11+12+3 o'clock position. Cervical biopsies were obtained from the 11+12+o'clock position, followed by an endocervical curettage (ECC). Vaginoscopy of the upper vagina revealed no evidence of aceto-white lesions. Hemostasis was achieved using Monsel solution, and the patient tolerated the procedure well. Post-Procedure Instructions: The patient was advised to promptly contact the office or the after our answering service if experiencing a temperature exceeding 100.4?F, abdominal pain, nausea/vomiting, or bleeding. Additionally, the patient was instructed to abstain from vaginal intercourse and bathtub use. The patient confirmed understanding of these instructions. Discharge Instructions: The patient was instructed to schedule a follow-up appointment in 2 weeks for further evaluation and management. Please note that this note was generated using a voice recognition program, and errors may have occurred during supervising fire marshal. 23793-[id number] of cervix including upper vagina with biopsy and ECC Procedure code (CPT) selection complete Assessment & Plan Assessment & Plan (1) ASCUS with positive high risk HPV cervical: Code(s): R87.610 - Atypical squamous cells of undetermined significance on cytologic smear of cervix (ASC-US); R87.810 - Cervical high risk human papillomavirus (HPV) DNA test positive Category: Medical Plan: Colposcopy done, see procedure Orders: Orders AMB Colposcopy Today R87.610 - Atypical squamous cells of undetermined significance on cytologic smear of cervix (ASC-US), R87.810 - Cervical high risk human papillomavirus (HPV) DNA test positive Coding Level of Care Code Procedure Only Diagnoses ASCUS with positive high risk HPV cervical R87.610; R87.810 CPT Codes Colposcopy - CPT: 23548-Irinlblez of cervix including upper vagina with biopsy and ECC ([id number])
[2023-11-08 09:20] VITALS: BP 120/74; BMI 33.8
== END 2023-11-08 13:17 | disposition home or self-care (01) ==
PROVIDERS: PCP Internal Medicine; Visit Provider Obstetrics & Gynecology
DX: R87.610 Atypical squamous cells of undetermined significance on cytologic smear of cervix (ASC-US) (principal); R87.810 Cervical high risk human papillomavirus (HPV) DNA test positive
CPT/HCPCS: 57454

== ENCOUNTER 2023-11-30 13:47 | Outpatient (AMB) | payer OTHER, SELFPAY ==
--- NOTE | 2023-11-30 14:28 | A.OFFVIS_ITS ---
Vital Signs 11/30/23 14:31 Height 5 ft 10 in Weight 235 lb 14.314 oz BMI 33.8 BP 118/70 Intake Visit Reasons: Colpo follow up Speech Therapy Teacher Required: No Information Interpreted: non-clinical & clinical Accompanied by: Self / Same As Patient Allergies penicillin V Allergy (Unknown, Verified 11/30/23 14:31) rash,hives, fever HPI Comments Details: Presenting post colpo for follow-up. The patient is doing well with no complaints. The pathology showed the following: A. Endocervix, curettage: Mildly inflamed cervical transformation zone mucosa with reactive changes. B. Cervix, 3 o'clock, biopsy: - Squamous epithelium within normal limits. - No endocervical epithelium identified. C. Cervix, 11 o'clock, biopsy: - Squamous epithelium within normal limits. - No endocervical epithelium identified. D. Cervix, 12 o'clock, biopsy: - Squamous epithelium within normal limits. - Rare small strips of endocervical epithelium within normal limits PFSH Medical History Preprocedural examination Annual physical exam Well woman exam with routine gynecological exam Endogenous depression Spondylosis of lumbar spine Radiculopathy, lumbar region Disc degeneration, lumbar High cholesterol Bilateral hand pain Surgical History History of back surgery H/O knee surgery History of section Family History Father Hypertension Mother Breast cancer Pelvic cancer Hypertension Diabetes Maternal Grandmother Diabetes Hypertension CVD (cardiovascular disease) Breast cancer Uterine cancer Ovarian cancer Maternal Grandfather Diabetes Hypertension CVD (cardiovascular disease) Lymphoma Social History Household Members: Children Housing: Apartment Alcohol intake: current Alcohol intake frequency: does not drink Patient Tobacco Use Status: Never used Tobacco e-Cigarette/Vaping Use: Never Used Second Hand Smoke Exposure: Yes service: No Current occupational status: disabled Cognitive needs: Yes (cane) Hearing needs: No Vision needs: No Female Reproductive History Menstrual Age of Menarche: 8 Date of last menstrual period: 11/30/23 Review of Systems Const All systems reviewed & are unremarkable except as noted in HPI and below Reports as per HPI and Reports no additional complaints GI Reports no additional complaints Reports no additional complaints Physical Exam Vital Signs: Last Vital Signs BP 118/70 11/30/23 14:31 BMI result Body Mass Index 33.8 Assessment & Plan Assessment & Plan (1) ASCUS with positive high risk HPV cervical: Code(s): R87.610 - Atypical squamous cells of undetermined significance on cytologic smear of cervix (ASC-US); R87.810 - Cervical high risk human papillomavirus (HPV) DNA test positive Category: Medical Plan: Discussed with the patient the pathology results of the colposcopy biopsies & endocervical curettage ( negative). Discussed with the patient the sensitivity specificity, positive and negative predictive value in detecting cervical cancer in addition discussed the regression, persistence and progression rates. Recommended co-testing in 12 months, if cytology and or HPV are abnormal will proceed was colposcopy biopsy and endocervical curettage. Instructions given to the patient to schedule a co test appointment in 1 year. All questions answered the patient verbalized understanding. Coding Level of Care Code Est Pt Level 3 (03611) Diagnoses ASCUS with positive high risk HPV cervical R87.610; R87.810
[2023-11-30 14:31] VITALS: BP 118/70; BMI 33.8
== END 2023-11-30 14:38 | disposition home or self-care (01) ==
PROVIDERS: PCP Internal Medicine; Visit Provider Obstetrics & Gynecology
DX: R87.610 Atypical squamous cells of undetermined significance on cytologic smear of cervix (ASC-US) (principal); R87.810 Cervical high risk human papillomavirus (HPV) DNA test positive
CPT/HCPCS: 99213

== ENCOUNTER → 2023-11-30 13:47 | Outpatient (BNVA) | payer OTHER, SELFPAY | PROVIDERS: PCP Internal Medicine; Visit Provider Obstetrics & Gynecology | DX: R87.610 Atypical squamous cells of undetermined significance on cytologic smear of cervix (ASC-US) (principal); R87.810 Cervical high risk human papillomavirus (HPV) DNA test positive | CPT/HCPCS: 99212 ==

== ENCOUNTER 2023-12-24 13:05 | Outpatient (AMB) | payer OTHER, SELFPAY ==
[2023-12-24 13:13] VITALS: BP 120/76; BMI 35.0
--- NOTE | 2023-12-24 13:13 | A.OFFVIS_ITS ---
Vital Signs 12/24/23 13:13 Height 5 ft 10 in Weight 244 lb BMI 35.0 BP 120/76 Intake Visit Reasons: LINO Donor Floor Technician Required: No Donor Floor Technician Services: Donor Floor Technician Present Information Interpreted: clinical only Distribution Sales Manager: Distribution Sales Manager Present Allergies penicillin V Allergy (Unknown, Verified 12/24/23 13:14) rash,hives, fever Medication List - Last Reconciled 12/24/23 by Farheen Krishnan CNM atorvastatin 40 mg PO DAILY blood sugar diagnostic (FreeStyle Test strips) Test bs three time a day flash glucose scanning reader (FreeStyle Hannah 14 Day [place]) As directed flash glucose sensor (FreeStyle Hannah 14 Day Sensor kit) USE DIRECTED fluconazole 150 mg PO Q3D 2 doses gabapentin 300 mg PO TID 1 month hydrocortisone 2.5% 1 appl topical BID PRN hydroxyzine HCl 25 mg PO TID PRN ibuprofen 800 mg PO Q8H PRN insulin glargine (Lantus Solostar U-100 Insulin) 15 units (0.15 mL) subcut QPM lancets As directed losartan 25 mg PO DAILY 90 days pen needle, diabetic (BD Hanny 2nd Gen Pen Needle) As directed daily sertraline 50 mg PO DAILY sitagliptin phosphate (Januvia) 50 mg PO DAILY tizanidine 2 mg PO BEDTIME PRN topiramate 100 mg PO DAILY trazodone 100 mg PO BEDTIME PRN 90 days Is last menstrual period known: Yes Last menstrual period: 12/23/23 Do you need a note to return to daycare/school/sports/work: No HPI HPI LINO: Details: Patient is here as a scheduled test of cure visit for chlamydia that is disclosed at her annual exam she also had an abnormal Pap smear so she had a colposcopy with Dr. Devlin and reviewed that plan of care as well. She says she took medications same day and she watched her partner take it as well and they abstain for 3 weeks. She has not contraceptive she would open however her bigger she is right now or other life challenges and getting over her partner's infidelity and her dealing with her back pain as well she has had 2 surgeries and still has numbness down her right leg and is dealing with her diabetes though she says her blood sugars have better. [facility] Medical History Preprocedural examination Annual physical exam Well woman exam with routine gynecological exam Endogenous depression Spondylosis of lumbar spine Radiculopathy, lumbar region Disc degeneration, lumbar High cholesterol Bilateral hand pain Surgical History History of back surgery H/O knee surgery History of section Family History Father Hypertension Mother Breast cancer Pelvic cancer Hypertension Diabetes Maternal Grandmother Diabetes Hypertension CVD (cardiovascular disease) Breast cancer Uterine cancer Ovarian cancer Maternal Grandfather Diabetes Hypertension CVD (cardiovascular disease) Lymphoma Social History Household Members: Children Housing: Apartment Alcohol intake: current Alcohol intake frequency: does not drink Patient Tobacco Use Status: Never used Tobacco e-Cigarette/Vaping Use: Never Used Second Hand Smoke Exposure: Yes service: No Current occupational status: disabled Cognitive needs: Yes (cane) Hearing needs: No Vision needs: No Female Reproductive History Menstrual Age of Menarche: 8 Duration of menses: 6-7 days Date of last menstrual period: 12/23/23 control method: none Total pregnancies: 1 Full term: 1 Date of last pap smear: 09/14/23 (epithelial cell abnormality) History of abnormal pap smear: Yes Physical Exam Vital Signs: Last Vital Signs BP 120/76 12/24/23 13:13 BMI result Body Mass Index 35.0 Other: Deferred today at patient request. Results Reviewed Results Reviewed: Name: Maria G Sanderson Age/Sex: 28/F Attending: Mata Devlin MD : 1995 Submitted by: Mata Devlin MD Copies to: Rogelio Tadeo MD MR #: [id number] Status: DEP REF Collected: 11/08/23 Location: [facility] Received: 11/08/23 Diagnosis A. Endocervix, curettage: Mildly inflamed cervical transformation zone mucosa with reactive changes. B. Cervix, 3 o'clock, biopsy: - Squamous epithelium within normal limits. - No endocervical epithelium identified. C. Cervix, 11 o'clock, biopsy: - Squamous epithelium within normal limits. - No endocervical epithelium identified. D. Cervix, 12 o'clock, biopsy: - Squamous epithelium within normal limits. - Rare small strips of endocervical epithelium within normal limits. COMMENT: The findings are concordant with the patient's recent Pap/cytology specimen ([id number]; ASCUS with positive HR HPV) - slide reviewed. Clinical History ASCUS with positive high risk HPV cervical Microscopic Description A-D. Microscopic sections reviewed. Material Received A. ECC B. Cx bx 3 o'clock C. Cx bx 11 o'clock D. Cx bx 12 o'clock Gross Description Received in four parts. Part A: Received in formalin labeled ?ECC? is a 1.2 x 0.9 x 0.35 cm aggregate of predominantly mucus and blood and minute shards of red-maroon tissue, submitted in toto in a cassette labeled A. Part B: Received in formalin labeled ?cx bx 3? is a 0.4 cm rubbery, mata-pink wedge-shaped fragment of mucosa, submitted in toto in a cassette labeled B. Patient: Maria G Sanderson Age/Sex: 28/F MR#: [id number] Page 1 of 2 Surgical Pathology [id number] Part C: Received in formalin labeled ?cx bx 11? is a 0.3 cm rubbery, mata-pink wedge-shaped fragment of mucosa, submitted in toto in a cassette labeled C. Part D: Received in formalin labeled ?cx bx 12? is a 0.45 cm rubbery, mata-red wedge-shaped fragment of mucosa, submitted in toto in a cassette labeled D. CEDS Copies To Rogelio Tadeo MD [address] [place] [address] [address] [place], [place] [id number] Mata Devlin MD [address] [place] [address] [address]Rad[address] [place] [address] NOTE: Unless otherwise stated, all tissue is formalin-fixed and paraffin- embedded. Some or all of the immunohistochemical tests reported herein may have been developed and their performance characteristics determined by [facility]. They have not been cleared or approved by the U.S. Food and Drug Administration (FDA). However, the FDA has determined that such clearance or approval is not necessary. This laboratory is certified under the Clinical Laboratory Improvement Amendments of 1988 (CLIA) as qualified to perform high complexity clinical laboratory testing. Electronically Signed By: Marvin Dubon MD 11/10/23 1010 Patient: Maria G Sanderson Age/Sex: 28/F MR#: [id number] RUN: 12/24/23 4470 PAGE 1 [facility] [address] [place] [id number] Electromatic Typist: Marvin Dubon M.D. Specimen Inquiry Name: Maria G Sanderson Age/Sex: 28/F : 1995 Unit#: [id number] Attend Dr: AriellaFarheen [facility] Re09/10/23 Status: DEP REF Location: [facility] Disch: SPEC : [id number] KIT: 09/10/23-UNK STATUS: COMP REQ : [id number] RECD: 09/10/[address] [facility] [address]: AriellaFarheen [facility] COMP: 09/11/23 ENTERED: 09/10/[address]: Rogelio Tadeo MD ORDERED: CT NG by PCR QUERIES: CT NG Source: Vaginal Test Result Flag Reference CT PCR DETECTED A Not Detect. Detected results may be observed after successful antibiotic treatment due to target nucleic acids from residual non-viable chlamydia. As with many diagnostic tests, results from the Xpert CT/NG assay should be interpreted in conjunction with other laboratory and clinical data available to the clinician. Xpert CT/NG performance has not been evaluated in patients less than 14 years of age. The assay should not be used for the evaluation of suspected sexual abuse or for other medico-legal indications. Additional testing is recommended in any circumstance when false positive or false negative results could lead to adverse medical, social or psychological consequences. These results must be reported by the ordering clinician or clinical facility to the [place] Department of Health as required by state law. NG PCR NOT DETECTED Not Detect. A not detected test result does not exclude the possibility of infection because test results can be affected by improper specimen collection, concurrent antibiotic therapy, or the number of organisms in the specimen which may be below the sensitivity of the test. As with many diagnostic tests, results from the Xpert CT/NG assay should be interpreted in conjunction with other laboratory and clinical data available to the clinician. Xpert CT/NG performance has not been evaluated in patients less than 14 years of age. The assay should not be used for the evaluation of suspected sexual abuse or for other medico-legal indications. Additional testing is recommended in any circumstance when false positive or false negative results could lead to adverse medical, social or psychological consequences. END OF REPORT Assessment & Plan Assessment & Plan (1) Chlamydia infection: Comment: 09/10/2023 testing shows positive chlamydia (and Gardnerella) patient's phone not accept thing multiple calls. Registered letter to be sent needs treatment. Code(s): A74.9 - Chlamydial infection, unspecified Category: Medical (2) Abnormal Pap smear of cervix: Comment: 09/10/2023 Pap is ASCUS, w positive HPV, -refer for colpo. Code(s): R87.619 - Unspecified abnormal cytological findings in specimens from cervix uteri Category: Medical (3) ASCUS with positive high risk HPV cervical: Code(s): R87.610 - Atypical squamous cells of undetermined significance on cytologic smear of cervix (ASC-US); R87.810 - Cervical high risk human papillomavirus (HPV) DNA test positive Category: Medical Plan: per dr devlin at his post colpo f/u visit w pt :Assessment & Plan (1) ASCUS with positive high risk HPV cervical: Code(s): R87.610 - Atypical squamous cells of undetermined significance on cytologic smear of cervix (ASC-US); R87.810 - Cervical high risk human papillomavirus (HPV) DNA test positive Category: Medical Plan: Discussed with the patient the pathology results of the colposcopy biopsies & endocervical curettage ( negative). Discussed with the patient the sensitivity specificity, positive and negative predictive value in detecting cervical cancer in addition discussed the regression, persistence and progression rates. Recommended co-testing in 12 months, if cytology and or HPV are abnormal will proceed was colposcopy biopsy and endocervical curettage. Instructions given to the patient to schedule a co test appointment in 1 year. All questions answered the patient verbalized understanding. Plan Reviewing with the patient today plan made with Dr. Deviln for her post colpo post ASCUS follow-up. Will order a test of cure done through the urine test in the lab Test of cure for the chlamydia, and the patient will want a pelvic exam as a double check in the future to be done Discussion about safer sex and testing for other STIs. As noted the patient has her menses and it is heavy today and she does not want to have a pelvic exam discussed that urine testing may not be quite as accurate but it is 1 way to do a test of cure inquired as to her symptoms before the test disclose that she had the chlamydia and she did not really have any symptoms the would appointed in this direction. She would like both test to be done so that she can be really sure. She says her blood sugars have been better she is on Januvia as well as her. She is working on weight loss but it is challenging. Her biggest issue right now is her back pain it is very bad she has ruptured discs and the pain goes down her leg and right now after 2 surgeries her right leg is completely numb. She has an appointment with a back surgeon to discuss options this afternoon as well Discussed having conversations with her doctor about other options for weight loss it might be open to her as a diabetic on insulin I will place the orders for the blood tests but she will do at her convenience and she is going to reschedule the pelvic exam for the cervical test of cure. She is currently avoiding sex with her because of these cheating on her even though he apologized and she watch to take medication and they waited a full 3 weeks however she has just not interested now partly because of the infidelity and partly because of her back pain. Orders: Orders Hepatitis B Surface Antigen Today A74.9 - Chlamydial infection, unspecified Syphilis Screen Today A74.9 - Chlamydial infection, unspecified Hepatitis C Antibody Today A74.9 - Chlamydial infection, unspecified HIV Ab/Ag Today A74.9 - Chlamydial infection, unspecified CT NG by PCR Today A74.9 - Chlamydial infection, unspecified Coding Level of Care Code Est Pt Level 3 (72345) Diagnoses Chlamydia infection A74.9 Abnormal Pap smear of cervix R87.619 ASCUS with positive high risk HPV cervical R87.610; R87.810
== END 2023-12-24 13:57 | disposition home or self-care (01) ==
LOC: HO.HWSM 13:05
PROVIDERS: PCP Internal Medicine; Visit Provider Advanced Practice Midwife
DX: A74.9 Chlamydial infection, unspecified (principal); R87.619 Unspecified abnormal cytological findings in specimens from cervix uteri; R87.610 Atypical squamous cells of undetermined significance on cytologic smear of cervix (ASC-US); R87.810 Cervical high risk human papillomavirus (HPV) DNA test positive
CPT/HCPCS: 99213

== ENCOUNTER → 2023-12-24 13:05 | Outpatient (BNVA) | payer OTHER, SELFPAY | PROVIDERS: PCP Internal Medicine; Visit Provider Advanced Practice Midwife | DX: A74.9 Chlamydial infection, unspecified (principal); R87.610 Atypical squamous cells of undetermined significance on cytologic smear of cervix (ASC-US); R87.810 Cervical high risk human papillomavirus (HPV) DNA test positive | CPT/HCPCS: 99212 ==

== ENCOUNTER 2024-02-07 10:01 | Outpatient (REF) | payer OTHER, SELFPAY ==
[2024-02-07 12:19] LABS: Syphilis Screen Nonreactive (Nonreactive)
[2024-02-07 12:22] LABS: HBsAGNum1 0.28 S/CO (0.00-0.99); HIV AB/AG Nonreactive (Nonreactive); HIV Num 1 0.11 S/CO (0.00-0.99); Hepatitis B Surface Antigen Negative (Negative); ~HepC Num1 0.25 S/CO (0.00-0.79); ~Hepatitis C Antibody Nonreactive (Nonreactive)
== END 2024-02-07 10:02 | disposition home or self-care (01) ==
LOC: HO.HHCL 10:01
PROVIDERS: Visit Provider Advanced Practice Midwife
DX: A74.9 Chlamydial infection, unspecified (principal)
CPT/HCPCS: 36415; 86780; 86803; 87340; 87389

== ENCOUNTER 2024-07-03 13:42 | Outpatient (REF) | payer OTHER, SELFPAY ==
[2024-07-04 22:22] LABS: Bacterial Vaginosis PCR NEGATIVE (Negative); Candida Group PCR NOT DETECTED (Not Detect); Candida glab krusei PCR NOT DETECTED (Not Detect); Trichomonas vaginalis PCR NOT DETECTED (Not Detect)
[2024-07-04 22:52] LABS: CT PCR NOT DETECTED (Not Detect.); NG PCR NOT DETECTED (Not Detect.)
== END 2024-07-03 13:43 | disposition home or self-care (01) ==
LOC: HO.LAB 13:42
PROVIDERS: PCP Internal Medicine; Visit Provider Advanced Practice Midwife
DX: R87.610 Atypical squamous cells of undetermined significance on cytologic smear of cervix (ASC-US) (principal); R87.810 Cervical high risk human papillomavirus (HPV) DNA test positive; A74.9 Chlamydial infection, unspecified; N91.1 Secondary amenorrhea; N81.89 Other female genital prolapse; N89.8 Other specified noninflammatory disorders of vagina; Z20.2 Contact with and (suspected) exposure to infections with a predominantly sexual mode of transmission; E11.65 Type 2 diabetes mellitus with hyperglycemia; M51.369 Other intervertebral disc degeneration, lumbar region without mention of lumbar back pain or lower extremity pain; E66.01 Morbid (severe) obesity due to excess calories
CPT/HCPCS: 81515; 87491; 87591; 99212

== ENCOUNTER 2024-07-03 13:42 | Outpatient (AMB) | payer OTHER, SELFPAY ==
[2024-07-03 13:49] VITALS: BP 122/78; BMI 35.0
--- NOTE | 2024-07-03 13:49 | MHC.OFFVIS ---
Vital Signs 07/03/24 13:49 Height 5 ft 10 in Weight 244 lb BMI 35.0 BP 122/78 Intake Visit Reasons: lab, std follow up Mannequin Molder Required: No Mannequin Molder Services: Mannequin Molder Present Information Interpreted: clinical only Flight Security Specialist: Flight Security Specialist Present Allergies penicillin V Allergy (Unknown, Verified 07/03/24 13:50) rash,hives, fever Medication List - Last Reconciled 07/03/24 by Farheen Krishnan CNM atorvastatin 40 mg PO DAILY blood sugar diagnostic (FreeStyle Test strips) Test bs three time a day flash glucose scanning reader (FreeStyle Hannah 14 Day Mineral) As directed flash glucose sensor (FreeStyle Hannah 14 Day Sensor kit) USE DIRECTED fluconazole 150 mg PO Q3D 2 doses gabapentin 300 mg PO TID 1 month hydrocortisone 2.5% 1 appl topical BID PRN hydroxyzine HCl 25 mg PO TID PRN ibuprofen 800 mg PO Q8H PRN insulin glargine (Lantus Solostar U-100 Insulin) 15 units (0.15 mL) subcut QPM lancets As directed losartan 25 mg PO DAILY 90 days pen needle, diabetic (BD Hanny 2nd Gen Pen Needle) As directed daily sertraline 50 mg PO DAILY sitagliptin phosphate (Januvia) 50 mg PO DAILY tizanidine 2 mg PO BEDTIME PRN topiramate 100 mg PO DAILY trazodone 100 mg PO BEDTIME PRN 90 days Is last menstrual period known: No (Since,05/13/24) HPI HPI lab, std follow up: Details: Patient is here because she has not a periods since April she is not sexually active. She thinks her weight is stable but she has gained weight over time. She is diabetic and she is on insulin she checks her sugars and she says control. Her exercise is walking 4 flights of stairs all the time. She is doing her best to watch what she eats she avoids candy sugars so the sweets rice bread pasta she is trying her best to avoid carbs but somehow she has does not lose the weight. She is interested in talking about weight loss medications with her doctor and she is going to calling to make an appointment when she leaves here.. She says she has not been sexually active with her since the positive chlamydia in when he cheated on her. She has 1 child 9 years old who has autism delivered by . She had 2 back surgeries in 2022 for bulging discs.. She has done lots of physical therapy for it.. She does not know how to swim she has kind of limited with her exercise because of her back. She is disabled because of her back. [facility]LY [facility] Medical History Preprocedural examination Annual physical exam Well woman exam with routine gynecological exam Endogenous depression Spondylosis of lumbar spine Radiculopathy, lumbar region Disc degeneration, lumbar High cholesterol Bilateral hand pain Surgical History History of back surgery H/O knee surgery History of section Family History Father Hypertension Mother Breast cancer Pelvic cancer Hypertension Diabetes Maternal Grandmother Diabetes Hypertension CVD (cardiovascular disease) Breast cancer Uterine cancer Ovarian cancer Maternal Grandfather Diabetes Hypertension CVD (cardiovascular disease) Lymphoma Social History Household Members: Children Housing: Apartment Alcohol intake: current Alcohol intake frequency: does not drink Patient Tobacco Use Status: Never used Tobacco e-Cigarette/Vaping Use: Never Used Second Hand Smoke Exposure: Yes service: No Current occupational status: disabled Cognitive needs: Yes (cane) Hearing needs: No Vision needs: No Female Reproductive History Menstrual Age of Menarche: 8 Duration of menses: 3-5 days control method: none Total pregnancies: 1 Full term: 1 Date of last pap smear: 09/14/23 ([place]) History of abnormal pap smear: Yes Physical Exam Vital Signs: Last Vital Signs BP 122/78 07/03/24 13:49 BMI result Body Mass Index 35.0 Other: Normal external exam cervix nulliparous tightly closed pink smooth clear scant discharge cervix long close thick mobile nontender uterus difficult to palpate in terms of locating position most likely mid line and midposition does not feel enlarged or tender adnexa nontender patient was not able to recreate a Kegel despite several efforts. External Female Exam: normal external appearance Speculum Exam - Vagina: normal appearance of the vagina and normal vaginal discharge Speculum Exam - Cervix: normal appearance of the cervix Bimanual exam- vagina & uterus: normal bimanual exam, uterine size normal, consistency normal, uterine mobility normal, uterine shape normal and non-tender Bimanual Exam- Adnexa, other: normal adnexae, no masses and No adnexal tenderness Results Reviewed Results Reviewed: Name: Maria G Sanderson Age/Sex: 28/F Attending: Farheen Krishnan CNM : 1995 Submitted by: Farheen Krishnan CNM Copies to: Rogelio Tadeo MD MR #: [id number] Status: DEP REF Collected: 09/10/23 Location: [facility] Received: 09/14/23 Interpretation General Category: Epithelial cell abnormality. Adequacy: Endocervical component present. Interpretation: Atypical squamous cells of undetermined significance, rare. Abundant, partially obscuring acute inflammation and blood. HPV mRNA E6/E7: DETECTED This assay detects E6/E7 viral messenger RNA (mRNA) from 14 high-risk HPV types (16, 18, 31, 33, 35, 39, 45, 51, 52, 56, 58, 59, 66, 68) HPV Type 16 RNA: Not Detected HPV Type 18/45 RNA: Not Detected HPV testing performed by [facility], [place], [place]. See reference laboratory portion of the EMR for entire report. Clinical Information LMP: 09/02/23 Previous PAP test: 07/04/19, WNL Material Received ThinPrep-Cervical Copies To Farheen Krishnan CNM [address] [place] [address] Dr. Kirkpatrick [address] [address] Rogelio Tadeo MD [address] [place] [address] Dr. Kirkpatrick [address] [id number] Electronically Signed By: Ginna Whitman 09/27/23 1106 Patient: Maria G Sanderson Age/Sex: 28/F MR#: [id number] Page 1 of 2 Gynecologic Cytology [id number] The Pap Test is a screening procedure with the inherent possibility of both false negative and false positive results. Results should be interpreted in the context of historic and current clinical findings. Reliability of the Pap Test is enhanced by performing the test on a regular repetitive basis. Patient: Maria G Sanderson Age/Sex: 28/F MR#: [id number]. Name: Maria G Sanderson Age/Sex: 28/F Attending: Mata Devlin MD : 1995 Submitted by: Mata Devlin MD Copies to: Rogelio Tadeo MD MR #: [id number] Status: DEP REF Collected: 11/08/23 Location: [facility] Received: 11/08/23 Diagnosis A. Endocervix, curettage: Mildly inflamed cervical transformation zone mucosa with reactive changes. B. Cervix, 3 o'clock, biopsy: - Squamous epithelium within normal limits. - No endocervical epithelium identified. C. Cervix, 11 o'clock, biopsy: - Squamous epithelium within normal limits. - No endocervical epithelium identified. D. Cervix, 12 o'clock, biopsy: - Squamous epithelium within normal limits. - Rare small strips of endocervical epithelium within normal limits. COMMENT: The findings are concordant with the patient's recent Pap/cytology specimen ([id number]; ASCUS with positive HR HPV) - slide reviewed. Clinical History ASCUS with positive high risk HPV cervical Microscopic Description A-D. Microscopic sections reviewed. Material Received A. ECC B. Cx bx 3 o'clock C. Cx bx 11 o'clock D. Cx bx 12 o'clock Gross Description Received in four parts. Part A: Received in formalin labeled ?ECC? is a 1.2 x 0.9 x 0.35 cm aggregate of predominantly mucus and blood and minute shards of red-maroon tissue, submitted in toto in a cassette labeled A. Part B: Received in formalin labeled ?cx bx 3? is a 0.4 cm rubbery, mata-pink wedge-shaped fragment of mucosa, submitted in toto in a cassette labeled B. Patient: Maria G Sanderson Age/Sex: 28/F MR#: [id number] Page 1 of 2 Surgical Pathology [id number] Part C: Received in formalin labeled ?cx bx 11? is a 0.3 cm rubbery, mata-pink wedge-shaped fragment of mucosa, submitted in toto in a cassette labeled C. Part D: Received in formalin labeled ?cx bx 12? is a 0.45 cm rubbery, mata-red wedge-shaped fragment of mucosa, submitted in toto in a cassette labeled D. Assessment & Plan Assessment & Plan (1) Poorly controlled diabetes mellitus: Code(s): E11.65 - Type 2 diabetes mellitus with hyperglycemia Category: Medical (2) Abnormal Pap smear of cervix: Comment: 09/10/2023 Pap is ASCUS, w positive HPV, -refer for colpo/colpo and biopsy done follow-up is August of 2024. Code(s): R87.619 - Unspecified abnormal cytological findings in specimens from cervix uteri Category: Medical (3) ASCUS with positive high risk HPV cervical: Comment: Colpo and biopsy were done follow-up is August of 2024. Code(s): R87.610 - Atypical squamous cells of undetermined significance on cytologic smear of cervix (ASC-US); R87.810 - Cervical high risk human papillomavirus (HPV) DNA test positive Category: Medical (4) Morbid obesity: Code(s): E66.01 - Morbid (severe) obesity due to excess calories Category: Medical (5) Chlamydia infection: Comment: 09/10/2023 testing shows positive chlamydia (and Gardnerella) patient's phone not accept thing multiple calls. Registered letter to be sent needs treatment.//patient was treated test of cure negative patient states she has avoided contact since November of 2023. Code(s): A74.9 - Chlamydial infection, unspecified Category: Medical (6) Encounter for screening examination for sexually transmitted disease: Code(s): Z11.3 - Encounter for screening for infections with a predominantly sexual mode of transmission Category: Medical (7) Amenorrhea, secondary: Comment: test negative- will evaluate, and have patient do Provera challenge.... Code(s): N91.1 - Secondary amenorrhea Category: Medical (8) Disc degeneration, lumbar: Code(s): M51.36 - Other intervertebral disc degeneration, lumbar region Category: Medical (9) Pelvic floor weakness: Comment: Unable to perform a Kegel. Possibly related to her disc issues... We will send PT referral. Code(s): N81.89 - Other female genital prolapse Category: Medical Plan Discussed the interplay between her weight gain with her diabetes and the amenorrhea with the metabolic syndrome and elevated hormonal milieu the she is experiencing. Discussed that this is a common scenario but that over time it can develop into a pathological condition the lining of her uterus but the important thing is to have regular withdrawal bleeds or prevent them with a medication such as a Mirena IU S with progestin. Discussed that this is a symptom what is going on and in some ways sort of a wake-up call to really be double her efforts to get healthier and lose weight and also get her diabetes under better control as well discussed that everything relates to everything else. For the gynecological workup were doing cultures today test is negative discussed treating her with the Provera challenge and (continuing plan for no intercourse for now), and expect a very very heavy period a few days after stopping the 10 days of Provera.-she does feel crampy like she is going get a periods so if that happens before and she does not need to take the Provera. Discussed though that the long-term solution might be something like a Mirena to help stabilize the lining of her uterus and prevent this dysfunctional bleeding cycle. We will also get a pelvic ultrasound and we will have a follow-up visit after the ultrasound and after her Provera challenge to evaluate. She is due for follow-up Pap smear with HPV co testing this August. She is going to be calling her doctor to also have discussions about her diabetes and follow-up she said she has been wondering about weight loss medication but this would have to be discussed with her doctor in light of her diabetes. She would be interested in a nutrition visit though she thinks she is doing all the right stuff. Discussed that there is a grind operator in the endocrinology office but she will discuss this with her primary I also could not reliably help her perform a Kegel exercise though there was minimal contraction with her last of four attempts. Is may be in some way due to the radiculopathy from her disc injuries. I will nevertheless send her to physical therapy where she has her lower back somewhat recently. Orders: Orders US pelvic and transvaginal Today E11.65 - Type 2 diabetes mellitus with hyperglycemia, E66.01 - Morbid (severe) obesity due to excess calories, N81.89 - Other female genital prolapse, N91.1 - Secondary amenorrhea Hemoglobin A1c Today E11.65 - Type 2 diabetes mellitus with hyperglycemia, N91.1 - Secondary amenorrhea PT Evaluation and Treatment Today A74.9 - Chlamydial infection, unspecified, E11.65 - Type 2 diabetes mellitus with hyperglycemia, E66.01 - Morbid (severe) obesity due to excess calories, M51.36 - Other intervertebral disc degeneration, lumbar region, N81.89 - Other female genital prolapse, N91.1 - Secondary amenorrhea, R87.610 - Atypical squamous cells of undetermined significance on cytologic smear of cervix (ASC-US), R87.619 - Unspecified abnormal cytological findings in specimens from cervix uteri, R87.810 - Cervical high risk human papillomavirus (HPV) DNA test positive, Z11.3 - Encounter for screening for infections with a predominantly sexual mode of transmission Thyroid Stimulating Hormone Today E11.65 - Type 2 diabetes mellitus with hyperglycemia, N91.1 - Secondary amenorrhea Testosterone, Free/Total Today E11.65 - Type 2 diabetes mellitus with hyperglycemia, N91.1 - Secondary amenorrhea Prolactin Today E11.65 - Type 2 diabetes mellitus with hyperglycemia, N91.1 - Secondary amenorrhea DHEA Sulfate Today E11.65 - Type 2 diabetes mellitus with hyperglycemia, N91.1 - Secondary amenorrhea Medications: New ibuprofen May take 600 mg every 6 hours as needed with food in stomach for menstrual cramps. Do not take concurrently with 800 mg 600 mg PO Q6H PRN 90 tabs 0RF pain medroxyprogesterone (Provera) 10 mg PO DAILY 10 tabs 0RF Coding Level of Care Code Est Pt Level 4 (28790) Diagnoses Poorly controlled diabetes mellitus E11.65 Abnormal Pap smear of cervix R87.619 ASCUS with positive high risk HPV cervical R87.610; R87.810 Morbid obesity E66.01 Chlamydia infection A74.9 Encounter for screening examination for sexually transmitted disease Z11.3 Amenorrhea, secondary N91.1 Disc degeneration, lumbar M51.36 Pelvic floor weakness N81.89
== END 2024-07-03 15:53 | disposition home or self-care (01) ==
PROVIDERS: PCP Internal Medicine; Visit Provider Advanced Practice Midwife
DX: E11.65 Type 2 diabetes mellitus with hyperglycemia (principal); R87.619 Unspecified abnormal cytological findings in specimens from cervix uteri; R87.610 Atypical squamous cells of undetermined significance on cytologic smear of cervix (ASC-US); R87.810 Cervical high risk human papillomavirus (HPV) DNA test positive; E66.01 Morbid (severe) obesity due to excess calories; A74.9 Chlamydial infection, unspecified; Z11.3 Encounter for screening for infections with a predominantly sexual mode of transmission; N91.1 Secondary amenorrhea; M51.369 Other intervertebral disc degeneration, lumbar region without mention of lumbar back pain or lower extremity pain; N81.89 Other female genital prolapse
CPT/HCPCS: 99214

== ENCOUNTER 2024-07-13 13:36 | Outpatient (REF) | payer OTHER, SELFPAY ==
--- NOTE | ~2024-07-13 | US_ITS ---
EXAMINATION: US PELVIS TRANSABDOMINAL AND TRANSVAGINAL HISTORY: E11.65 - Type 2 diabetes mellitus with hyperglycemia COMPARISON: There are no prior studies for comparison. TECHNIQUE: Transabdominal and endovaginal real-time 2D salvador-scale ultrasound was performed. Color Doppler was also performed. FINDINGS: Uterus: The uterus is normal in size, measuring 10.5 x 4.3 x 6.1 cm. Myometrium has a normal echotexture. No fibroids are identified. Endometrium: The endometrial stripe measures 9 mm in thickness. Right ovary: The right ovary measures 4.6 x 4.8 x 4.2 cm. There is a 4.1 x 4.0 x 3.5 cm complex cyst demonstrating septations and low-level internal echoes. Left ovary: The left ovary measures 4.1 x 2.5 x 1.7 cm. The left ovary contains a 6 mm echogenic focus which could represent a tiny dermoid. Immediately adjacent to the left ovary, there is a 3.1 x 2.1 x 2.8 cm cyst with septations which likely represents a paraovarian cyst. Color Doppler analysis of the bilateral ovarian arteries and veins are normal. Pelvic fluid: none. US/US pelvic and transvaginal IMPRESSION: 1. 4.1 x 4.0 x 3.5 cm complex right ovarian cyst. Follow-up examination in 6 weeks, and a different time in the patient's menstrual cycle, is recommended to document resolution. 2. 6 mm echogenic focus in the left ovary which may represent a tiny dermoid. This could be confirmed with CT or MRI if desired. 3. 3.1 x 2.1 x 2.8 cm septated left paraovarian cyst. Electronically signed by: Emile Maldonado MD 07/14/2024 07:17 AM [facility]
== END 2024-07-13 13:37 | disposition home or self-care (01) ==
LOC: HO.US 13:36
PROVIDERS: PCP Internal Medicine; Visit Provider Advanced Practice Midwife
DX: E11.65 Type 2 diabetes mellitus with hyperglycemia (principal); N91.1 Secondary amenorrhea; N81.89 Other female genital prolapse; E66.01 Morbid (severe) obesity due to excess calories
CPT/HCPCS: 76830; 76856

== ENCOUNTER → 2024-07-13 13:38 | Outpatient (BNV) | payer OTHER, SELFPAY | PROVIDERS: PCP Internal Medicine; Visit Provider Radiology Diagnostic Radiology | DX: N83.201 Unspecified ovarian cyst, right side (principal) | CPT/HCPCS: 76830; 76856 ==

== ENCOUNTER 2024-07-17 09:51 | Outpatient (AMB) | payer OTHER, SELFPAY ==
--- NOTE | 2024-07-17 09:54 | A.SPINEOV_ITS ---
Vital Signs 07/17/24 10:00 Height 5 ft 10 in Weight 247 lb BMI 35.4 Intake Visit Reasons: Low back pain Intake Note: Ms. Sanderson is here today c/o low back pain. Product Analyst Required: No Allergies penicillin V Allergy (Unknown, Verified 07/17/24 10:00) rash,hives, fever Physical Exam Vital Signs: BMI result Body Mass Index 35.4 Assessment & Plan Assessment & Plan (1) Back pain: Code(s): M54.9 - Dorsalgia, unspecified Category: Medical Plan Dear Dr Tadeo Thank you for referring Mrs Sanderson to our office today. This is a very nice self referred 29 y/o female with h/o two previous microdiskectomies by Dr Terrell in 2022. She had great success right after the first surgery but within a week or so, the pain came back. She re-herniated the disk and underwent second surgery but unfortunately did not have same results. The leg pain went away, but she has had persistent back pain since that time and her whole right leg remains numb with loss of sensation of the 3 toes on the outer part of her foot. She will have tremendous amounts of back pain when she is sitting, standing or lying down. Just constantly changing position. She takes Tylenol, Motrin and gabapentin. She underwent physical therapy two separate times without any relief. No injections or chiropractic done since the surgery but she did undergo an MRI showing multilevel degenerative disc disease from L3-S1. Subsequent discogram revealed pain 8/10 at the L3-4 and L4-5 discs and 10/10 at the L5-S1. She returned to see Dr. Terrell who was very reluctant to offer her fusion of the 3 levels the lumbar spine given her young age. She came to see us for 2nd opinion. PMH: She is diabetic but reasonably well controlled with an A1c that is around the 6-7 range., history of hypertension, knee surgery, back surgery, , depression, anxiety. Denies any heart attacks, strokes, pulmonary problems, kidney disease, liver disease, blood clots, cancer or major abdominal surgery Social hx: She has not smoke, drink or use any recreational drugs Medications: Lantus, Januvia, ibuprofen, Tylenol, losartan, hydroxyzine, Provera, sertraline, Topamax, trazodone, atorvastatin Allergies: Penicillin Physical exam: She is awake alert oriented no acute distress, she has a small well-healed lumbar incision on her lower back it is about an inch and a half an length, full strength of bilateral lower extremities, absent Achilles reflex on the right side. Positive straight leg raise at about 45 degrees. Imaging review: Imaging done at [facility] in March 2024 reveals postsurgical changes at L5-S1 with good resection of previously seen disc herniation. There is moderate degenerative disc disease from L3-4, L4-5 and L5-S1. No significant central canal stenosis. No recurrent disc herniation. Impression: 29-year-old female with 2 previous microdiskectomies done in 2022 by with good resolution of the leg pain but she has been left with persistent severe centralized low back pain with standing, walking, sitting or lying down. She also has numbness of her whole right leg going down into the toes on the outer part of her right foot. Subsequent MRI showed multilevel degenerative disc disease from L3-S1 described as moderate, with a discogram yielding positive results at every disc level that was evaluated. This puts her in the unfortunately position of not having a clear idea exactly where the pain could be coming from in terms of isolating a disc level. Dr. Terrell is very reluctant to pursue 3 level lumbar fusion on a 29-year-old female in that seems very reasonable. She came in today for 2nd opinion. I explained to the patient at length that this could be very difficult situation for her if she ends up having surgery too soon as she would be at very high risk for adjacent segment disease down the road and needing subsequent operations. Also, she needs to factor in that the surgery itself could make her pain worse. I also explained to her that the numbness going down her foot is likely a dental cream maker symptom that will not go away given that it happened because of a disc herniation also in the setting of an absent reflex that it is a chronic nerve damage rather than something that can be fixed with surgery. I will review all for imaging with Dr. Gonzalez, but I have a feeling he will agree that this would be an aggressive measure to fuse 3 levels in a 29-year-old female. I will call her if he has anything else to add. Thank you for allowing us to care for your patient. The total time spent with this visit with this patient was 45 minutes reviewing history, physical exam, lumbar imaging review, and implementation of treatment plan or further diagnostic testing Cristóbal Gonzalez MD,PhD [facility] Coding Level of Care Code New Pt Level 4 (77743) Diagnoses Back pain M54.9
[2024-07-17 10:00] VITALS: BMI 35.4
== END 2024-07-17 10:26 | disposition home or self-care (01) ==
PROVIDERS: PCP Internal Medicine; Visit Provider Physician Assistant
DX: M54.9 Dorsalgia, unspecified (principal)
CPT/HCPCS: 99204

== ENCOUNTER → 2024-07-17 09:51 | Outpatient (BNVA) | payer OTHER, SELFPAY | PROVIDERS: PCP Internal Medicine; Visit Provider Physician Assistant | DX: M54.9 Dorsalgia, unspecified (principal) | CPT/HCPCS: 99202 ==

== ENCOUNTER → 2024-07-28 09:00 | Outpatient (BNVA) | payer OTHER, SELFPAY | PROVIDERS: PCP Internal Medicine; Visit Provider Advanced Practice Midwife | DX: E11.65 Type 2 diabetes mellitus with hyperglycemia (principal); R87.610 Atypical squamous cells of undetermined significance on cytologic smear of cervix (ASC-US); R87.810 Cervical high risk human papillomavirus (HPV) DNA test positive; R87.619 Unspecified abnormal cytological findings in specimens from cervix uteri; N91.1 Secondary amenorrhea; N83.299 Other ovarian cyst, unspecified side | CPT/HCPCS: 99212 ==

== ENCOUNTER → 2024-07-28 09:00 | Outpatient (AMB) | payer OTHER, SELFPAY ==
--- NOTE | 2024-07-28 09:06 | A.OFFVIS_ITS ---
Vital Signs 07/28/24 09:07 Height 5 ft 10 in Weight 247 lb BMI 35.4 BP 118/72 Intake Visit Reasons: US/F,U Lead Supply Worker Required: No Lead Supply Worker Services: Lead Supply Worker Present Information Interpreted: clinical only Tech Ed Teacher: Tech Ed Teacher Present Allergies penicillin V Allergy (Unknown, Verified 07/28/24 09:08) rash,hives, fever Medication List - Last Reconciled 07/28/24 by Farheen Krishnan CNM atorvastatin 40 mg PO DAILY blood sugar diagnostic (FreeStyle Test strips) Test bs three time a day flash glucose scanning reader (FreeStyle Hannah 14 Day [place]) As directed flash glucose sensor (FreeStyle Hannah 14 Day Sensor kit) USE DIRECTED fluconazole 150 mg PO Q3D 2 doses gabapentin 300 mg PO TID 1 month hydrocortisone 2.5% 1 appl topical BID PRN hydroxyzine HCl 25 mg PO TID PRN insulin glargine (Lantus Solostar U-100 Insulin) 15 units (0.15 mL) subcut QPM lancets As directed losartan 25 mg PO DAILY 90 days medroxyprogesterone (Provera) 10 mg PO DAILY pen needle, diabetic (BD Hnany 2nd Gen Pen Needle) As directed daily sertraline 50 mg PO DAILY sitagliptin phosphate (Januvia) 50 mg PO DAILY tizanidine 2 mg PO BEDTIME PRN topiramate 100 mg PO DAILY trazodone 100 mg PO BEDTIME PRN 90 days Is last menstrual period known: Yes Last menstrual period: 07/15/24 HPI HPI US/F,U: Details: Here to review her ultrasound. Also we are having a discussion about her previous amenorrhea. That have been the 1st time that she had missed a. She normally gets them every month. She was given Provera at the last visit but thankfully she did not even need to take it the period came on its own. She was very glad about that she cramped a lot with it but feels so much better it lasted a full week. She says her diabetes is doing really well and she is losing weight and she is working really hard to avoid sweet things and she has a sweet tooth so it is hard and now she is really working controlling her rice intake.. [facility] Medical History Preprocedural examination Annual physical exam Well woman exam with routine gynecological exam Endogenous depression Spondylosis of lumbar spine Radiculopathy, lumbar region Disc degeneration, lumbar High cholesterol Bilateral hand pain Surgical History History of back surgery H/O knee surgery History of section Family History Father Hypertension Mother Breast cancer Pelvic cancer Hypertension Diabetes Maternal Grandmother Diabetes Hypertension CVD (cardiovascular disease) Breast cancer Uterine cancer Ovarian cancer Maternal Grandfather Diabetes Hypertension CVD (cardiovascular disease) Lymphoma Social History Household Members: Children Housing: Apartment Alcohol intake: current Alcohol intake frequency: does not drink Patient Tobacco Use Status: Never used Tobacco e-Cigarette/Vaping Use: Never Used Second Hand Smoke Exposure: Yes service: No Current occupational status: disabled Cognitive needs: Yes (cane) Hearing needs: No Vision needs: No Female Reproductive History Menstrual Age of Menarche: 8 Date of last menstrual period: 07/15/24 control method: progesterone injection Total pregnancies: 1 Full term: 1 Date of last pap smear: 09/14/23 (ASCUS) History of abnormal pap smear: Yes Physical Exam Vital Signs: Last Vital Signs BP 118/72 07/28/24 09:07 BMI result Body Mass Index 35.4 Results Reviewed Results Reviewed: Patient: Maria G Sanderson MR#: [id number] : 1995 Acct:[id number] Age/Sex: 29 / F ADM Date: 07/13/24 Loc: HO.US Attending Dr: Farheen Krishnan CNM Ordering Physician: Farheen Krishnan CNM Date of Service: 07/13/24 Procedure(s): US pelvic and transvaginal Accession Number(s): [id number] cc: Farheen Krishnan CNM; Rogelio Tadeo MD~ EXAMINATION: US PELVIS TRANSABDOMINAL AND TRANSVAGINAL HISTORY: E11.65 - Type 2 diabetes mellitus with hyperglycemia COMPARISON: There are no prior studies for comparison. TECHNIQUE: Transabdominal and endovaginal real-time 2D salvador-scale ultrasound was performed. Color Doppler was also performed. FINDINGS: Uterus: The uterus is normal in size, measuring 10.5 x 4.3 x 6.1 cm. Myometrium has a normal echotexture. No fibroids are identified. Endometrium: The endometrial stripe measures 9 mm in thickness. Right ovary: The right ovary measures 4.6 x 4.8 x 4.2 cm. There is a 4.1 x 4.0 x 3.5 cm complex cyst demonstrating septations and low-level internal echoes. Left ovary: The left ovary measures 4.1 x 2.5 x 1.7 cm. The left ovary contains a 6 mm echogenic focus which could represent a tiny dermoid. Immediately adjacent to the left ovary, there is a 3.1 x 2.1 x 2.8 cm cyst with septations which likely represents a paraovarian cyst. Color Doppler analysis of the bilateral ovarian arteries and veins are normal. Pelvic fluid: none. US/US pelvic and transvaginal IMPRESSION: 1. 4.1 x 4.0 x 3.5 cm complex right ovarian cyst. Follow-up examination in 6 weeks, and a different time in the patient's menstrual cycle, is recommended to document resolution. 2. 6 mm echogenic focus in the left ovary which may represent a tiny dermoid. This could be confirmed with CT or MRI if desired. 3. 3.1 x 2.1 x 2.8 cm septated left paraovarian cyst. Electronically signed by: Emile Maldonado MD 07/14/2024 07:17 AM EST Dictated By: Emile Maldonado MD Signed By: <Electronically signed by Emile Maldonado MD in OV> 07/14/24 0717 DD/ 1400 TD/TT: 07/13/24 1414 It Consulting Manager: ALSO REVIEWED PREVIOUS PAP AND CERVICAL BIOPSY AND THERE WAS AN ACTIVE PLAN TO REPEAT HER PAP WITH HPV CODE TESTING THIS COMING AUGUST. Assessment & Plan Assessment & Plan (1) Poorly controlled diabetes mellitus: Code(s): E11.65 - Type 2 diabetes mellitus with hyperglycemia Category: Medical (2) ASCUS with positive high risk HPV cervical: Comment: Colpo and biopsy were done follow-up is August of 2024. Code(s): R87.610 - Atypical squamous cells of undetermined significance on cytologic smear of cervix (ASC-US); R87.810 - Cervical high risk human papillomavirus (HPV) DNA test positive Category: Medical (3) Abnormal Pap smear of cervix: Comment: 09/10/2023 Pap is ASCUS, w positive HPV, -refer for colpo/colpo and biopsy done follow-up is August of 2024. Code(s): R87.619 - Unspecified abnormal cytological findings in specimens from cervix uteri Category: Medical (4) Amenorrhea, secondary: Comment: test negative- will evaluate, and have patient do Provera challenge.... Code(s): N91.1 - Secondary amenorrhea Category: Medical (5) Ovarian cyst, complex: Comment: Her ultrasound 07/13/2024 follow-up at different time a cycle in 6 weeks is recommended and ordered. Code(s): N83.299 - Other ovarian cyst, unspecified side Category: Medical Plan Reviewed the ultrasound with her there is a potential that we may do an MRI or CT scan to follow-up on the potential dermoid, depending on the results of the f ollowing ultrasound. the ultrasound has already been scheduled and she already has an appointment for to be done 6 weeks after the last 1 for follow-up the cyst the other ovary. I reviewed that we will wait see what that ultrasound shows and make plan from there. Discussed other issues to deal with abnormal bleeding should it occur again. She did have a Mirena in the past but it had taken out it caused her too much pain and she bled more and heavier with it so something was not right. We will see her after the ultrasound and do her annual Pap and review everything and make a plan additionally she will get her blood work done sometime before the visit so we can review that. Additionally we reviewed how she is doing with her diabetes she says she is due well and she uses trying to be healthy so she does not end up with an amputation like her uncle did. She is paying attention to how different foods make her feel as well. She is looking very good today. Annual exam with Pap with HPV code testing August along with review of labs and review of the follow- Review of the ultrasound at that visit as well Coding Level of Care Code Est Pt Level 3 (53407) Diagnoses Poorly controlled diabetes mellitus E11.65 ASCUS with positive high risk HPV cervical R87.610; R87.810 Abnormal Pap smear of cervix R87.619 Amenorrhea, secondary N91.1 Ovarian cyst, complex N83.299 Time Spent (min) 25 Comment 100% spent reviewing all of the above with her and making plan.
== END | disposition home or self-care (01) ==
PROVIDERS: PCP Internal Medicine; Visit Provider Advanced Practice Midwife
CPT/HCPCS: 99213

== ENCOUNTER 2024-07-31 08:56 | Outpatient (REF) | payer OTHER, SELFPAY ==
[2024-07-31 09:50] LABS: Estimated Average Glucose 120 mg/dL; Hemoglobin A1c % 5.8 % (<6.0); Total Hemoglobin (HGBA1C) 3123.3433 umol/L
[2024-08-01 16:38] LABS: DHEA Sulfate 94 mcg/dL (19-237)
[2024-08-05 20:13] LABS: Testosterone, Free 7.2 pg/mL (0.1-6.4); Testosterone, Total 65 ng/dL (2-45)
== END 2024-07-31 08:57 | disposition home or self-care (01) ==
LOC: HO.LAB 08:56
PROVIDERS: PCP Internal Medicine; Visit Provider Advanced Practice Midwife
DX: E11.65 Type 2 diabetes mellitus with hyperglycemia (principal); N91.1 Secondary amenorrhea
CPT/HCPCS: 36415; 82627; 83036; 84146; 84402; 84403; 84443

== ENCOUNTER 2024-08-04 11:58 | Outpatient (AMB) | payer OTHER, SELFPAY ==
--- NOTE | 2024-08-04 12:30 | MHC.PC.OV ---
Vital Signs 08/04/24 12:31 Height 5 ft 10 in Weight 260 lb BMI 37.3 BP 128/76 Blood Pressure Location Lt brachial Position Sitting Pulse 79 Pulse Source Pulse Oximeter Pulse Oximetry (%) 98 Oxygen Delivery Method Room Air Intake Visit Reasons: neurology referral Allergies penicillin V Allergy (Unknown, Verified 08/04/24 12:58) rash,hives, fever Medication List - Last Reconciled 08/04/24 by Wendy Landrum PA-C atorvastatin 40 mg PO DAILY blood sugar diagnostic (FreeStyle Test strips) Test bs three time a day flash glucose scanning reader (FreeStyle Hannah 14 Day [place]) As directed flash glucose sensor (FreeStyle Hannah 14 Day Sensor kit) USE DIRECTED gabapentin 300 mg PO TID 1 month hydrocortisone 2.5% 1 appl topical BID PRN hydroxyzine HCl 25 mg PO TID PRN insulin glargine (Lantus Solostar U-100 Insulin) 15 units (0.15 mL) subcut QPM lancets As directed losartan 25 mg PO DAILY 90 days medroxyprogesterone (Provera) 10 mg PO DAILY pen needle, diabetic (BD Hanny 2nd Gen Pen Needle) As directed daily sertraline 50 mg PO DAILY sitagliptin phosphate (Januvia) 50 mg PO DAILY tizanidine 2 mg PO BEDTIME PRN topiramate 100 mg PO DAILY trazodone 100 mg PO BEDTIME PRN 90 days Tobacco use date assessed: 08/04/24 Dental Screening Dental Screen Date: 08/04/24 Did you have a dental visit in the last 12 months?: No Did you have a dental problem in the last 6 months where you did not have access to dental care?: No Was dental information given to patient?: Patient declined [facility] Medical History Obesity (BMI 30-39.9) Seizure Preprocedural examination Annual physical exam Well woman exam with routine gynecological exam Endogenous depression Spondylosis of lumbar spine Radiculopathy, lumbar region Disc degeneration, lumbar High cholesterol Bilateral hand pain Surgical History History of back surgery H/O knee surgery History of section Family History Father Hypertension Mother Breast cancer Pelvic cancer Hypertension Diabetes Maternal Grandmother Diabetes Hypertension CVD (cardiovascular disease) Breast cancer Uterine cancer Ovarian cancer Maternal Grandfather Diabetes Hypertension CVD (cardiovascular disease) Lymphoma Social History Household Members: Children Housing: Apartment Alcohol intake: current Alcohol intake frequency: does not drink Patient Tobacco Use Status: Never used Tobacco e-Cigarette/Vaping Use: Never Used Second Hand Smoke Exposure: Yes service: No Current occupational status: disabled Cognitive needs: Yes (cane) Hearing needs: No Vision needs: No Female Reproductive History Menstrual Age of Menarche: 8 Questionnaire PHQ-9 Over the last 2 weeks, how often have you been bothered by any of the following problems? 1. Little interest or pleasure in doing things: nearly every day 2. Feeling down, depressed, or hopeless: nearly every day (currently in treatment) 3. Trouble falling or staying asleep, or sleeping too much: nearly every day 4. Feeling tired or having little energy: nearly every day 5. Poor appetite or overeating: nearly every day 6. Feeling bad about yourself - or that you are a failure or have let yourself or your family down: not at all 7. Trouble concentrating on things, such as reading the newspaper or watching television: nearly every day 8. Moving or speaking so slowly that other people could have noticed. Or the opposite - being so fidgety or restless that you have been moving around a lot more than usual: nearly every day 9. Thoughts that you would be better off or of hurting yourself in some way: not at all Total score: 21 Depression Screening Interpretation: Positive (with therapist and psychiatrist ) Depression Screening Follow-up: Existing condition and In treatment Depression Screening Done: Yes 86049 - PHQ-9 Billing: Yes Source: Developed by Drs. Emile Prince, Andra Barfield, Velsaquez Frances and colleagues, with an educational keeley from [employer]. Thrive Questionnaire Date Thrive assessed: 08/04/24 I am a: Patient What is your living situation today?: I have a steady place to live Within the past 12 months, did the food you bought not last and you didn't have the money to get more?: Never true Within the past 12 months, did you worry whether your food would run out before you got money to buy more?: Never true Do you have trouble paying for medicines?: No Do you have trouble getting transportation to medical appointments?: No Do you have trouble paying your heating and electricity bill?: No Do you have trouble taking care of your child, family member or friend?: No Do you have trouble with day-to-day activities such as bathing, preparing meals, shopping, managing finances, etc.?: No Are you currently unemployed and looking for a job?: No Are you interested in more education?: No THRIVE Score: 0 AUDIT C Alcohol Use Questionnaire (AUDIT-C) 1. How often do you have a drink containing alcohol?: Never 3. How often do you have six or more drinks on one occasion?: Never Total Score: 0 Score Reviewed/Action Taken: Yes KAI-7 AMB Questionnaire KAI-7 Date KAI - 7 assessed: 08/04/24 Feeling nervous, anxious, or on edge: 3 = Nearly every day (currently in treatment) Not being able to stop or control worryin = Nearly every day Worrying too much about different things: 3 = Nearly every day Trouble relaxin = Nearly every day Being so restless that it is hard to sit still: 3 = Nearly every day Becoming easily annoyed or irritable: 3 = Nearly every day Feeling afraid as if something awful might happen: 0 = Not at all Total KAI-7 score (0-4 normal; 5-9 mild; 10-14 moderate; 15-21 severe): 18 Source: Developed by Drs. Emile Prince, Andra Barfield, Velasquez Frances and colleagues, with an educational keeley from [employer]. KAI-7 Assessment Billing KAI-7 Assessment Tool: KAI-7 Assessment 17876 Physical exam (Primary Care) Vital Signs: Last Vital Signs Pulse 79 08/04/24 12:31 BP 128/76 08/04/24 12:31 Pulse Ox 98 08/04/24 12:31 Oxygen Delivery Method Room Air 08/04/24 12:31 Care Plan Goal for BP management: <130/80 BMI result Body Mass Index 37.3 BMI Assessment/Plan discussion: High BMI High, discussed plan: lifestyle, weight reduction, dietary, physical activity and alcohol moderation Tobacco/Smoking Status: Tobacco use Status Tobacco use date assessed 08/04/24 08/04/24 12:37 Patient Tobacco Use Status Never used Tobacco 08/04/24 12:37 e-Cigarette/Vaping Use Never Used 08/04/24 12:37 PHQ-9: PHQ-9 Score PHQ-9: Total score 21 08/04/24 12:37 Depression Screening Interpretation: Positive (with therapist and psychiatrist ) Depression Screening Follow-up: Existing condition and In treatment Thrive Assessment: Date of Thrive Assessment Date Thrive assessed 08/04/24 08/04/24 12:37 Coding Level of Care Code Est Pt Level 4 (75131) Complex EM visit Add On G2211 Diagnoses Frequent headaches R51.9 Seizure R56.9 High cholesterol E78.00 Poorly controlled diabetes mellitus E11.65 Obesity (BMI 30-39.9) E66.9 Disc degeneration, lumbar M51.36 Radiculopathy, lumbar region M54.16 Spondylosis of lumbar spine M47.816 Chronic low back pain, unspecified back pain laterality, unspecified whether sciatica present M54.5; G89.29 Chronicity: chronic Back pain laterality: unspecified Sciatica presence: unspecified whether sciatica present Back pain M54.9 Additional Codes KAI-7 Assessment Billing - KAI-7 Assessment Tool: KAI-7 Assessment 11757 ([id number]) PHQ-9 - 22914 - PHQ-9 Billing: Yes ([id number]) Assessment & Plan Assessment & Plan (1) Frequent headaches: Code(s): R51.9 - Headache, unspecified Category: Medical Plan: Was followed by neurology here at [facility] although missed too many appointments therefore they discharged her from the clinic. Will refer her to [facility] for her headaches, seizures. Will prescribe Fioricet along with meloxicam. Patient has not had any seizures recently. Patient reports she is currently not driving she usually has someone drive her around or she does not drive at all. Condition is chronic and stable continue to monitor. (2) Seizure: Code(s): R56.9 - Unspecified convulsions Category: Medical Plan: Was followed by neurology here at [facility] although missed too many appointments therefore they discharged her from the clinic. Will refer her to [facility] for her headaches, seizures. Will prescribe Fioricet along with meloxicam. Patient has not had any seizures recently. Patient reports she is currently not driving she usually has someone drive her around or she does not drive at all. Condition is chronic and stable continue to monitor. (3) High cholesterol: Code(s): E78.00 - Pure hypercholesterolemia, unspecified Category: Medical Plan: Patient currently on atorvastatin 40 mg daily. Condition is chronic and stable continue to monitor. (4) Poorly controlled diabetes mellitus: Code(s): E11.65 - Type 2 diabetes mellitus with hyperglycemia Category: Medical Plan: Refilled all the patient's medications today. Patient to continue Lantus 15 units at bedtime, Januvia 50 mg daily, will attempt to start patient on Ozempic 0.25 mg weekly. Patient's last A1c was 5.8 on 07/31/2024. Condition is chronic and stable continue to monitor. (5) Obesity (BMI 30-39.9): Code(s): E66.9 - Obesity, unspecified Category: Medical Plan: Patient reports she is trying to eat better and exercise although she is having a hard time losing weight and is interested in Ozempic. Will send prescription due to patient has obesity with BMI of 37.3, diabetes, hyperlipidemia, migraine headaches, chronic back pain. Condition is chronic and stable continue to monitor. (6) Disc degeneration, lumbar: Code(s): M51.36 - Other intervertebral disc degeneration, lumbar region Category: Medical Plan: Will refer to pain management for chronic back pain. Will start patient on meloxicam. Patient instructed to continue Tizanidine 2 mg at bedtime as needed. Condition is chronic and stable continue to monitor. (7) Radiculopathy, lumbar region: Code(s): M54.16 - Radiculopathy, lumbar region Category: Medical Plan: Will refer to pain management for chronic back pain. Will start patient on meloxicam. Patient instructed to continue Tizanidine 2 mg at bedtime as needed. Condition is chronic and stable continue to monitor. (8) Spondylosis of lumbar spine: Code(s): M47.816 - Spondylosis without myelopathy or radiculopathy, lumbar region Category: Medical Plan: Will refer to pain management for chronic back pain. Will start patient on meloxicam. Patient instructed to continue Tizanidine 2 mg at bedtime as needed. Condition is chronic and stable continue to monitor. (9) Low back pain: Code(s): M54.5 - Low back pain Category: Medical Qualifiers: Chronicity: chronic Back pain laterality: unspecified Sciatica presence: unspecified whether sciatica present Qualified Code(s): M54.5 - Low back pain; G89.29 - Other chronic pain Plan: Will refer to pain management for chronic back pain. Will start patient on meloxicam. Patient instructed to continue Tizanidine 2 mg at bedtime as needed. Condition is chronic and stable continue to monitor. (10) Back pain: Code(s): M54.9 - Dorsalgia, unspecified Category: Medical Plan: Will refer to pain management for chronic back pain. Will start patient on meloxicam. Patient instructed to continue Tizanidine 2 mg at bedtime as needed. Condition is chronic and stable continue to monitor. Plan Plan - Refill of insulin Glargine, atorvastatin, gabapentin, losartan, and other chronic medications for hypertension, hyperlipidemia, and mental health - Referral to a painter and grader cork for assessment regarding back pain potentially requiring surgical intervention. - patient will be started on meloxicam for pain. - CT scan of brain ordered due to patient reports she has never had one for her migraine headaches - neurology referral placed for [facility]. - patient prescribed Fioricet for migraine headaches - patient to monitor for any seizure symptoms and if she has a seizure to contact us immediately - prescription for Ozempic started for type 2 diabetes, obesity with BMI of 37, hyperlipidemia and chronic pain - Patient being referred to pain management for chronic pain - return for regular scheduled follow-up and have fasting labs prior to that appointment Orders: Orders Microalbumin, Random (w Creat) Today E11.9 - Type 2 diabetes mellitus without complications Vitamin D 25-OH Total Today Z00.00 - Encounter for general adult medical examination without abnormal findings C Reactive Protein Today Z00.00 - Encounter for general adult medical examination without abnormal findings CT head/brain wo IV con Today R51.9 - Headache, unspecified, R56.9 - Unspecified convulsions Comprehensive [place]. Panel Fast Today Z00.00 - Encounter for general adult medical examination without abnormal findings Complete Blood Count Auto Diff Today Z00.00 - Encounter for general adult medical examination without abnormal findings Hemoglobin A1c Today Z00.00 - Encounter for general adult medical examination without abnormal findings Lipid Panel Today Z00.00 - Encounter for general adult medical examination without abnormal findings Liver Panel Today Z00.00 - Encounter for general adult medical examination without abnormal findings Magnesium Today Z00.00 - Encounter for general adult medical examination without abnormal findings TSH reflex Free T4 Today Z00.00 - Encounter for general adult medical examination without abnormal findings Vitamin B1 Today Z00.00 - Encounter for general adult medical examination without abnormal findings Vitamin B12 and Folate Today Z00.00 - Encounter for general adult medical examination without abnormal findings Referrals Neurology Referral R51.9 - Headache, unspecified, R56.9 - Unspecified convulsions Pain Management Referral E66.01 - Morbid (severe) obesity due to excess calories, G89.29 - Other chronic pain, M47.816 - Spondylosis without myelopathy or radiculopathy, lumbar region, M51.36 - Other intervertebral disc degeneration, lumbar region, M54.16 - Radiculopathy, lumbar region, M54.5 - Low back pain, M54.9 - Dorsalgia, unspecified, R51.9 - Headache, unspecified Medications: New [id number]-iwxo 50-300-40 mg (Fioricet) 1 cap PO Q8H PRN 90 caps 1RF pain meloxicam 15 mg PO DAILY 90 tabs 1RF pain lancets As directed 100 ea 1RF semaglutide (Ozempic) for 4 weeks 0.25 mg (0.368 mL) subcut QWEEK 3 mL 1RF E11.65 - Type 2 diabetes mellitus with hyperglycemia, E66.9 - Obesity, unspecified, E78.00 - Pure hypercholesterolemia, unspecified blood sugar diagnostic (FreeStyle Test strips) Test bs three time a day 100 ea 1RF hydrocortisone 2.5% 1 appl topical BID-TID PRN 454 grams 1RF itching topiramate 100 mg PO DAILY 90 tabs 1RF Changed From gabapentin 300 mg PO TID 1 month 90 caps 0RF To gabapentin 300 mg PO TID 90 days 270 caps 1RF From hydroxyzine HCl 25 mg PO TID PRN 30 tabs 0RF for itch To hydroxyzine HCl 25 mg PO TID 90 days PRN 180 tabs 1RF for itch Refilled flash glucose sensor (FreeStyle Hannah 14 Day Sensor kit) USE DIRECTED 2 kits 2RF E11.9 - Type 2 diabetes mellitus without complications atorvastatin 40 mg PO DAILY 90 tabs 1RF sertraline 50 mg PO DAILY 90 tabs 1RF trazodone 100 mg PO BEDTIME 90 days PRN 90 tabs 1RF sleep insulin glargine (Lantus Solostar U-100 Insulin) 15 units (0.15 mL) subcut QPM 15 mL 1RF flash glucose scanning reader (FreeStyle Hannah 14 Day [place]) As directed 1 ea 8RF E11.9 - Type 2 diabetes mellitus without complications losartan 25 mg PO DAILY 90 days 90 tabs 1RF pen needle, diabetic (BD Hanny 2nd Gen Pen Needle) As directed daily 50 ea 12RF E11.9 - Type 2 diabetes mellitus without complications sitagliptin phosphate (Januvia) 50 mg PO DAILY 90 tabs 1RF tizanidine discontinue flexeril. start with 1/2 tab as medication can be sedating 2 mg PO BEDTIME PRN 90 tabs 1RF muscle spasticity Patient Instructions: Patient Instructions - Schedule and complete the CT scan of the head when contacted by the hospital. - Follow up with the neurology referral to manage migraines and potential seizure treatments. - Begin taking the prescribed Fioricet for migraine relief as needed. - Follow up on the approval of Ozempic with your pharmacy and start as prescribed if approved. - Monitor blood glucose levels regularly. - Continue with current medications and refill prescriptions as required. - Return for fasting lab work before the next scheduled follow-up appointment. - Contact pain management for assessment of back pain if necessary. Scribe Plan - Not visible on output: History of Present Illness The patient is a 29-year-old female presenting with migraine headaches, seizure disorder, and concerns about hormonal imbalance. She has a longstanding history of migraine headaches that occur approximately 2-3 times a week, often accompanied by nausea, tingling, sensitivity to light, and significant pain, sometimes resulting in tears. These episodes have been occurring without any current medication management as the previously prescribed medication, perceived as ineffective, has been depleted. She has not experienced any recent seizures but reports wants to go back to neurology before they start again and is not on any seizure medication presently. The patient's previous neurological provider has discharged her due to missed appointments. No imaging studies like MRI or CT scan have been previously conducted despite her request, but an EEG conducted had normal results. Additionally, the patient also manages Type 2 Diabetes Mellitus and is currently on insulin Glargine. She struggles with obesity, with a BMI of 37, and has expressed interest in using Ozempic for weight loss rather than surgical intervention given her diabetic status. She also reports hypertension and hyperlipidemia, for which she is receiving treatment. Anxiety and depression are managed with current medications and ongoing psychological therapy. Social History - Reports difficulty with consistent follow-up medical appointments. - Engages with a therapist and psychologist for mental health management. - Has a supportive system that assists her with driving due to seizure concerns. - Recently discussed weight management with radiology scheduler and is looking for alternatives to surgical intervention such as pharmacological options for weight reduction. Review of Systems - Neurological: Reports diagnosis of seizure disorder, absent current treatment. - Endocrine: Reports hormonal imbalance affecting menstrual cycle and weight. - Psychiatric: Reports undergoing treatment for anxiety and depression. Physical Exam Appearance: Alert. Oriented X3. No acute distress. Head: Normal external exam. Normocephalic. Atraumatic. Eyes: Pupils are equal, round, and reactive to light. Extraocular movements intact. Conjunctiva and sclera normal. Eyelids normal. Ears: External auditory canal normal. Tympanic membranes normal. Throat: Pharynx normal. Uvula midline. Moist mucous membranes. Neck: Normal inspection. Neck supple. Full range of motion. No adenopathy. Thyroid Normal. No meningeal signs. No neck mass noted. Cardiovascular: Normal heart rate and rhythm. Heart sound normal. No murmurs noted. Pulses normal throughout. Respiratory: No respiratory distress. Painless inspiration. Breath sounds normal. No wheezes/rales/rhonchi noted. Chest nontender. No accessory muscle usage noted or decreased air movement noted. Abdomen: Soft and nontender. Bowel sounds normal in all 4 quadrants. No distention noted. No organomegaly noted. No visible injury noted. Back: No costovertebral angle tenderness. Full range of motion noted. Skin: Skin warm and dry. Normal skin color. Normal skin turgor. No rashes/lesions/lacerations noted. Extremities: No lower extremity edema. Extremities exhibit normal range of motion. Extremities nontender. Neuro: Oriented X 3. No motor deficit. No sensory deficit. Reflexes normal. Results - Labs: A1c of 5.8. - Tests and Diagnostics: EEG performed, results normal. No previous MRI or CT of the head conducted. Plan - Refill of insulin Glargine, atorvastatin, gabapentin, losartan, and other chronic medications for hypertension, hyperlipidemia, and mental health - Referral to a painter and grader cork for assessment regarding back pain potentially requiring surgical intervention. - patient will be started on meloxicam for pain. - CT scan of brain ordered due to patient reports she has never had one for her migraine headaches - neurology referral placed for [facility]. - patient prescribed Fioricet for migraine headaches - patient to monitor for any seizure symptoms and if she has a seizure to contact us immediately - prescription for Ozempic started for type 2 diabetes, obesity with BMI of 37, hyperlipidemia and chronic pain - Patient being referred to pain management for chronic pain - return for regular scheduled follow-up and have fasting labs prior to that appointment Patient was informed and verbally consented to the use of an ambient scribe for clinic note documentation during this visit. Discussion Notes I discussed with the patient the need for further neurological evaluation for her migraines and seizure disorder, including the possibility of a CT scan as a preliminary step followed by a neurology referral. I explained the need for imaging to rule out any severe conditions and provided her with a prescription for Fioricet. We discussed her weight management concerns and agreed to initiate Ozempic, discussing potential insurance approval and emphasizing its benefits in managing both her diabetes and weight. I explained the refill process for her current medications and reminded her of monitoring her blood glucose levels regularly. Furthermore, I suggested referring her to a painter and grader cork while she awaits further guidance on possible back surgery. Follow-up appointments and lab work were coordinated to ensure comprehensive management of her chronic conditions. Patient Instructions - Schedule and complete the CT scan of the head when contacted by the hospital. - Follow up with the neurology referral to manage migraines and potential seizure treatments. - Begin taking the prescribed Fioricet for migraine relief as needed. - Follow up on the approval of Ozempic with your pharmacy and start as prescribed if approved. - Monitor blood glucose levels regularly. - Continue with current medications and refill prescriptions as required. - Return for fasting lab work before the next scheduled follow-up appointment. - Contact pain management for assessment of back pain if necessary.
[2024-08-04 12:31] VITALS: BP 128/76; PULSE 79; O2SAT 98; BMI 37.3
== END 2024-08-04 13:38 | disposition home or self-care (01) ==
PROVIDERS: PCP Internal Medicine; Visit Provider Physician Assistant Medical
DX: E11.65 Type 2 diabetes mellitus with hyperglycemia (principal); R56.9 Unspecified convulsions; E66.9 Obesity, unspecified; Z68.37 Body mass index [BMI] 37.0-37.9, adult; R51.9 Headache, unspecified; E78.00 Pure hypercholesterolemia, unspecified; M51.369 Other intervertebral disc degeneration, lumbar region without mention of lumbar back pain or lower extremity pain; M54.16 Radiculopathy, lumbar region; M47.816 Spondylosis without myelopathy or radiculopathy, lumbar region; M54.50 Low back pain, unspecified; G89.29 Other chronic pain; M54.9 Dorsalgia, unspecified

== ENCOUNTER → 2024-08-04 11:58 | Outpatient (BNVA) | payer OTHER, SELFPAY | PROVIDERS: PCP Internal Medicine; Visit Provider Physician Assistant Medical | DX: R51.9 Headache, unspecified (principal); R56.9 Unspecified convulsions; E78.00 Pure hypercholesterolemia, unspecified; E11.65 Type 2 diabetes mellitus with hyperglycemia; E66.9 Obesity, unspecified; M54.16 Radiculopathy, lumbar region; M47.816 Spondylosis without myelopathy or radiculopathy, lumbar region; G89.29 Other chronic pain; M54.50 Low back pain, unspecified | CPT/HCPCS: 96127; 99212 ==

== ENCOUNTER 2024-08-14 10:36 | Outpatient (REF) | payer OTHER, SELFPAY ==
[2024-08-14 10:58] LABS: MANUAL DIFF FLAG NO
[2024-08-14 11:33] LABS: Basophils Percent Auto 0.5 % (0-2); Eosinophils Absolute Auto 0.1 X10*3/uL (0.0-0.4); Eosinophils Percent Auto 1.1 % (0-4); Hematocrit 37.5 % (37.0-47.0); Hemoglobin 12.4 g/dl (12.0-16.0); Imm Gran Abs Auto 0.02 X10*3/uL (0.00-0.03); Imm Gran Pct Auto 0.3 % (0.0-0.4); Lymphocytes Absolute Auto 2.9 X10*3/uL (1.2-4.9); Mean Corpuscular HGB Conc 33.1 g/dl (31.0-35.0); Mean Corpuscular Hemoglobin 28.4 pg (27.0-33.0); Mean Corpuscular Volume 85.8 fL (80.0-98.0); Mean Platelet Volume 11.3 fL (9.4-12.3); Monocytes Absolute Auto 0.5 X10*3/uL (0.1-1.2); Monocytes Percent Auto 8.5 % (2-11); Neutrophils Absolute Auto 2.6 x10*3/uL (2.0-8.3); Neutrophils Percent Auto 42.6 % (45-73); Platelet Count 271 X10*3/uL (160-400); Red Blood Count 4.37 X10*6/uL (4.20-5.50); Red Cell Distribution Width 12.5 % (11.0-16.0); White Blood Count 6.2 X10*3/uL (4.8-10.8)
[2024-08-14 12:01] LABS: Estimated Average Glucose 117 mg/dL; Hemoglobin A1C 126.2791 umol/L; Hemoglobin A1c % 5.7 % (<6.0)
[2024-08-14 12:31] LABS: TSH reflex Free T4 2.03 uIU/mL (0.32-4.0); Vitamin D 25-OH Total 11.7 ng/mL (>30)
[2024-08-14 12:35] LABS: Folate 12.1 ng/mL (> or = 4.0); Vitamin B12 387 pg/mL (200-900)
[2024-08-14 12:51] LABS: Anion Gap 11 (12-20)
[2024-08-14 12:57] LABS: Alanine Aminotransferase 46 U/L (0-31); Albumin Level 4.5 g/dL (3.5-5.0); Alkaline Phosphatase 76 U/L (39-117); Aspartate Amino Transferase 31 U/L (5-31); Bilirubin Direct 0.1 mg/dL (0.0-0.5); Bilirubin Total 0.5 mg/dL (0.0-1.0); Blood Urea Nitrogen 11 mg/dL (9-16); C Reactive Protein < 0.10 mg/dL (< or = 0.50); Calcium 9.4 mg/dL (8.4-10.2); Carbon Dioxide 24 mmol/L (22-29); Chloride 109 mmol/L (96-108); Cholesterol 196 mg/dL (<200); Estimated Glomerular Filt Rate > 60; Glucose Fasting 102 mg/dL (60-99); HDL Cholesterol 31 mg/dL (>40); LDL Cholesterol Calculated 95 mg/dL (<100); Magnesium 2.1 mg/dL (1.6-2.6); Potassium 4.1 mmol/L (3.3-5.1); Sodium 140 mmol/L (135-145); Total Protein 8.6 g/dL (6.5-8.0); Triglycerides 351 mg/dL (<150)
[2024-08-24 05:48] LABS: Vitamin B1 13 nmol/L (8-30)
== END 2024-08-14 10:37 | disposition home or self-care (01) ==
LOC: HO.LAB 10:36
PROVIDERS: PCP Internal Medicine; Visit Provider Physician Assistant Medical
DX: Z00.00 Encounter for general adult medical examination without abnormal findings (principal); E11.9 Type 2 diabetes mellitus without complications
CPT/HCPCS: 36415; 80053; 80061; 80076; 82043; 82248; 82306; 82570; 82607; 82746; 83036; 83735; 84425; 84443; 85025; 86140

== ENCOUNTER 2024-08-24 13:21 | Outpatient (AMB) | payer OTHER, SELFPAY ==
--- NOTE | 2024-08-24 13:24 | A.OFFVIS_ITS ---
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 She had surgery formed in the past twice for the back surgery in the [facility] by Dr. Zee Iqbal. She reports her pain today 11/28. She reports that prolonged sitting flexing forward aggravate her pain. Standing also aggravate her pain. Activities also aggravate her pain. She can not sleep normally can not do activities of daily living can not take care of herself can not function normally she is on permanent disability. Weather changes in motions aggravate her pain. Nighttime is wearing her pain is less severe. However when she positioned herself flattened bed her pains becomes better. She had multiple studies of her lower back including x-rays CT scans and MRIs. Those are not available to me. Patient promised to bring those studies especially MRI to my attention next time she is here. She completed multiple sessions of physical therapy and continues home exercise program. Her past medical history significant for headaches and diabetes. Surgical history significant for C- sections and 2 back surgeries as above. She denies smoking cigarettes she denies drinking alcohol she does not drink caffeinated beverages she denies recreational drugs. [facility] Medical History (Updated 08/24/24 @ 14:28 by Delmar Tran MD) Uncontrolled type 2 diabetes mellitus with hyperglycemia, with long-term current use of insulin High triglycerides Vitamin D deficiency Obesity (BMI 30-39.9) Seizure Preprocedural examination Annual physical exam Well woman exam with routine gynecological exam Endogenous depression Spondylosis of lumbar spine Radiculopathy, lumbar region Disc degeneration, lumbar High cholesterol Bilateral hand pain Surgical History History of back surgery H/O knee surgery History of section Family History Father Hypertension Mother Breast cancer Pelvic cancer Hypertension Diabetes Maternal Grandmother Diabetes Hypertension CVD (cardiovascular disease) Breast cancer Uterine cancer Ovarian cancer Maternal Grandfather Diabetes Hypertension CVD (cardiovascular disease) Lymphoma Social History Household Members: Children Housing: Apartment Alcohol intake: current Alcohol intake frequency: does not drink Patient Tobacco Use Status: Never used Tobacco e-Cigarette/Vaping Use: Never Used Second Hand Smoke Exposure: Yes service: No Current occupational status: disabled Cognitive needs: Yes (cane) Hearing needs: No Vision needs: No Female Reproductive History Menstrual Age of Menarche: 8 Review of Systems Const Reports body aches ENT Reports Normal hearing present Card Reports no additional complaints Resp Reports no additional complaints GI Reports no additional complaints Reports no additional complaints Musc Reports no additional complaints Neuro Reports Normal hearing present, Denies Abnormal speech present, Denies confusion and Denies Sensory deficit (Neuro) Psych Denies confusion Physical Exam Vital Signs: Last Vital Signs Pulse 94 08/24/24 13:32 BP 148/73 H 08/24/24 13:32 BMI result Body Mass Index 37.8 Const General: no acute distress; No confusion Nutritional Appearance: obese morbidly obese Orientation/consciousness: patient oriented x3 and No confusion Eyes General: appearance normal, both eyes and all related structures Pupils: Equal, round and reactive pupils present EOM: EOMs intact bilaterally Neck Neck: Yes full ROM Chest Chest palpation & inspection: normal inspection of the chest Resp Effort & Inspection: normal respiratory effort, able to speak in complete sentences, normal respiratory pattern, no audible wheezes and no cough Cardio Jugular venous distension: no JVD GI Inspection: Yes normal to inspection Back/Spine/Pelvis Other: Small scar in the projection of the approximately L4-5 vertebral spinous processes is observed, the scar is very well-healed. Able to flex herself backwards but unable to flex herself forward at all. Able to stand on bilateral tiptoes and bilateral heels without difficulty. Zachary test is positive on the right. Gaenslen test is positive on the right. Pelvic compression test and pelvic distraction tests are both positive on the right. Fourteen finger test is positive on the right. SLR is positive on the right as well. However dorsiflexion of the right foot does not aggravate the pain. Neuro General: patient oriented x3, gait normal and No confusion Cranial nerves: Yes CN's II-XII intact bilaterally, Yes Equal, round and reactive pupils present, Yes Normal hearing present and Yes Ability to bilaterally elevate shoulders present Speech: No Abnormal speech present Gait exam (Neuro): Normal gait present Motor exam (neuro): 5/5 motor strength present throughout Sensory Exam: No Sensory deficit (Neuro) Extrem General: No pedal edema Psych Speech and movement: Normal speech and movement present Affect: normal affect Attitude: cooperative Thought process: Normal thought process present Thought content: Normal thought content present Insight: Good insight present (Psych) Judgement: Good judgement present (Psych) Assessment & Plan Assessment & Plan (1) Sacroiliac joint dysfunction of right side: Code(s): M53.3 - Sacrococcygeal disorders, not elsewhere classified Category: Medical (2) Sacroiliitis: Code(s): M46.1 - Sacroiliitis, not elsewhere classified Category: Medical (3) Postlaminectomy syndrome of lumbar region: Code(s): M96.1 - Postlaminectomy syndrome, not elsewhere classified Category: Medical (4) Chronic pain syndrome: Code(s): G89.4 - Chronic pain syndrome Category: Medical (5) Vertebrogenic low back pain: Code(s): M54.51 - Vertebrogenic low back pain Category: Medical Plan the pain of this patient most likely is multifactorial. She is morbidly obese, she might be suffering from sacroiliitis. To make clear whether or not she is suffering from sacroiliitis I offered the patient and I will be performing sacroiliac joint injection on the right. The injection will be poor day diagnostic injection without any steroids. At the same time I have a suspicion that this patient might be suffering from vertebra genic pain syndrome since she reports prolonged sitting pain, she states that she can not sit more than 15 minutes, he can not flex herself forward, her pain is aggravated with activity. She has an MRI of the lumbar spine disc and report. She promised to bring me the disc and the report of that MRI. After that I will make a decision about vertebrogenic pain syndrome and ability to treated with intercept procedure. I will schedule this patient in couple of weeks for further examination. Patient Instructions: I here by testify that I spent 45 minutes in conversation with this patient as well as planning her care and organizing this note. Coding Level of Care Code New Pt Level 4 (87928) Diagnoses Sacroiliac joint dysfunction of right side M53.3 Sacroiliitis M46.1 Postlaminectomy syndrome of lumbar region M96.1 Chronic pain syndrome G89.4 Vertebrogenic low back pain M54.51
[2024-08-24 13:32] VITALS: BP 148/73; PULSE 94; BMI 37.8
== END 2024-08-24 13:47 | disposition home or self-care (01) ==
PROVIDERS: PCP Internal Medicine; Referring Provider Physician Assistant Medical; Visit Provider Anesthesiology
DX: M53.3 Sacrococcygeal disorders, not elsewhere classified (principal); M46.1 Sacroiliitis, not elsewhere classified; M96.1 Postlaminectomy syndrome, not elsewhere classified; G89.4 Chronic pain syndrome; M54.51 Vertebrogenic low back pain
CPT/HCPCS: 99204

== ENCOUNTER → 2024-08-24 13:21 | Outpatient (BNVA) | payer OTHER, SELFPAY | PROVIDERS: PCP Internal Medicine; Referring Provider Physician Assistant Medical; Visit Provider Anesthesiology | DX: M53.3 Sacrococcygeal disorders, not elsewhere classified (principal); M46.1 Sacroiliitis, not elsewhere classified; M96.1 Postlaminectomy syndrome, not elsewhere classified; G89.4 Chronic pain syndrome; M54.51 Vertebrogenic low back pain | CPT/HCPCS: 99202 ==

== ENCOUNTER → 2024-08-25 13:09 | Outpatient (BNVA) | payer OTHER, SELFPAY | PROVIDERS: PCP Internal Medicine; Visit Provider Physician Assistant Surgical ==

== ENCOUNTER 2024-08-29 10:56 | Outpatient (REF) | payer OTHER, SELFPAY ==
--- NOTE | ~2024-08-29 | US_ITS ---
EXAMINATION: US PELVIS TRANSABDOMINAL AND TRANSVAGINAL HISTORY: N83.299 - Other ovarian cyst, unspecified side COMPARISON: Comparison is made with the prior examination dated 07/13/2024. TECHNIQUE: Transabdominal and endovaginal real-time 2D salvador-scale ultrasound was performed. Color Doppler was also performed. FINDINGS: Uterus: The uterus is normal in size, measuring 9.9 x 3.9 x 4.9 cm. Myometrium has a normal echotexture. No fibroids are identified. Endometrium: The endometrial stripe measures 4 mm in thickness. Right ovary: The right ovary measures 4.4 x 3.2 x 2.5 cm. The right ovary is normal in size and echotexture. The previously seen complex cyst has resolved. Left ovary: The left ovary measures 4.5 x 2.9 x 2.0 cm. Again seen is a 9 x 5 x 5 mm echogenic focus within the ovary which could represent a dermoid. Again seen is a 2.6 x 2.1 x 2.5 cm left paraovarian cyst containing a daughter cyst. Color Doppler analysis of the bilateral ovarian arteries and veins is normal. Pelvic fluid: none. US/US pelvic and transvaginal IMPRESSION: 1. The previously seen complex right ovarian cyst has resolved. 2. Stable 9 x 5 x 5 mm echogenic focus in the left ovary which may represent a dermoid. Stable 2.6 x 2.1 x 2.5 cm left paraovarian cyst. Electronically signed by: Emile Maldonado MD 08/29/2024 02:25 PM EDT
== END 2024-08-29 10:57 | disposition home or self-care (01) ==
LOC: HO.US 10:56
PROVIDERS: PCP Internal Medicine; Visit Provider Advanced Practice Midwife
DX: N83.299 Other ovarian cyst, unspecified side (principal)
CPT/HCPCS: 76830; 76856

== ENCOUNTER → 2024-08-29 10:59 | Outpatient (BNV) | payer OTHER, SELFPAY | PROVIDERS: PCP Internal Medicine; Visit Provider Radiology Diagnostic Radiology | DX: N83.292 Other ovarian cyst, left side (principal) | CPT/HCPCS: 76830; 76856 ==

== ENCOUNTER 2024-09-01 08:16 | Outpatient (AMB) | payer OTHER, SELFPAY ==
--- NOTE | 2024-09-01 09:14 | MHC.OFFVISWM ---
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* Allergies penicillin V Allergy (Unknown, Verified 09/01/24 09:14) rash,hives, fever Medication List - Last Reconciled 09/01/24 by Chung Ricci MD atorvastatin 40 mg PO DAILY blood sugar diagnostic (FreeStyle Test strips) Test bs three time a day uzsocfwjeg-adzwuiqthysmr-fkwr 50-300-40 mg (Fioricet) 1 cap PO Q8H PRN cholecalciferol (vitamin D3) 1,250 mcg PO QWEEK 3 months dulaglutide (Trulicity) 0.75 mg (0.5 mL) subcut QWEEK flash glucose scanning reader ([employer] Hannah 14 Day [place]) As directed flash glucose sensor (FreeStyle Hannah 14 Day Sensor kit) USE DIRECTED gabapentin 300 mg PO TID 90 days hydrocortisone 2.5% 1 appl topical BID PRN hydrocortisone 2.5% 1 appl topical BID-TID PRN hydroxyzine HCl 25 mg PO TID PRN 90 days insulin degludec (Tresiba FlexTouch U-100 insulin) 15 units (0.15 mL) subcut BEDTIME lancing device As directed losartan 25 mg PO DAILY 90 days medroxyprogesterone (Provera) 10 mg PO DAILY meloxicam 15 mg PO DAILY pen needle, diabetic (BD Hanny 2nd Gen Pen Needle) As directed daily sertraline 50 mg PO DAILY sitagliptin phosphate (Januvia) 50 mg PO DAILY tizanidine 2 mg PO BEDTIME PRN topiramate 100 mg PO DAILY trazodone 100 mg PO BEDTIME PRN 90 days HPI HPI 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*: Details: Start time: 9.04am, End time: 9.54am ?I spent 45 minutes speaking with the patient on the phone plus an additional 5 minutes reviewing and updating records for a total of 50 minutes HPI Comments Details: Previous weight efforts: exercise Wakes up: 6am, Sleeps: 10.30pm Breakfast: skips Lunch: 12.30pm (eggs, fruits, bread) Dinner: 3.30pm (chicken,, potatoes, rice) Snacks: after dinner (fruits, sandwich) Exercise: none Beverages: Coffee: none, tea: rarely, soda: none, juice: none, ETOH: none PFSH Medical History (Updated 09/01/24 @ 09:24 by Chung Ricci MD) Anxiety Depression Hypertension Insomnia Migraines Seizures Uncontrolled type 2 diabetes mellitus with hyperglycemia, with long-term current use of insulin High triglycerides Vitamin D deficiency Obesity (BMI 30-39.9) Seizure Preprocedural examination Annual physical exam Well woman exam with routine gynecological exam Endogenous depression Spondylosis of lumbar spine Radiculopathy, lumbar region Disc degeneration, lumbar High cholesterol Bilateral hand pain Surgical History History of back surgery H/O knee surgery History of section Family History Father Hypertension Mother Breast cancer Pelvic cancer Hypertension Diabetes Maternal Grandmother Diabetes Hypertension CVD (cardiovascular disease) Breast cancer Uterine cancer Ovarian cancer Maternal Grandfather Diabetes Hypertension CVD (cardiovascular disease) Lymphoma Social History Household Members: Children Housing: Apartment Alcohol intake: current Alcohol intake frequency: does not drink Patient Tobacco Use Status: Never used Tobacco e-Cigarette/Vaping Use: Never Used Second Hand Smoke Exposure: Yes service: No Current occupational status: disabled Cognitive needs: Yes (cane) Hearing needs: No Vision needs: No Female Reproductive History Menstrual Age of Menarche: 8 Telehealth Telehealth Telehealth Platform: Telephone Location of provider rendering services: practice address Location of patient: address on file Patient Identification confirmed using: Name, : Yes Telehealth method: voice only Patient verbally consented to treatment: Yes Patient verbally consented to billing insurance company: Yes Patient informed of any privacy concerns related to visit: Yes Minutes spent on Phone/Video with Pt.: 50 Assessment & Plan Assessment & Plan (1) Obesity (BMI 30-39.9): Code(s): E66.9 - Obesity, unspecified Category: Medical Plan: 1. We discussed in detail the available therapeutic options: 1) our lifestyle intervention program. 2) replace the Trulicity with one of the new generation GLP-1 medications. 3) We also discussed about the?lap sleeve gastrectomy which I think it is the best long-term option. I emphasized the importance of close follow-up, adherence to instructions and good communication. The surgery does not replace the need to change your lifestlyle which is the cause of the obesity problem. The surgery provides the motivation to try again to change your lifestyle, it reduces the appetite and make the transition to a better lifestyle easier and doubles the amount of weight you would lose compared to doing the lifestyle change without the surgery. You will need to be on a liquid diet with protein shakes for 2 weeks before surgery to maximize weight loss and boost your nutritional status to recover better from surgery and also for the first two weeks after surgery to let the stomach heal before we introduce other foods. After the first 2 weeks we will introduce protein bars and soft foods like scrambled eggs, cottage cheese and yogurt and after the 6th week will introduce meat, fish and cooked vegetables in small amounts. Over time you should be able to eat everything in small amounts. Side effects like nausea, vomiting, heartburn or abdominal pain are not common in the practice unless you are not following in the practice. This operation requires lifetime commitment to following in our practice and communication with me. You will much less weight and experience side effects if you don?t communicate or not following in the practice. Complications are rare and in our practice is about 1/10 of the national average. The patient will consider these options and will get back to me with her decision.
[2024-09-01 09:45] VITALS: BMI 37.5
== END 2024-09-01 09:54 | disposition home or self-care (01) ==
LOC: HO.HBS 08:16
PROVIDERS: PCP Internal Medicine; Visit Provider Surgery
DX: E66.812 Obesity, class 2 (principal); Z68.37 Body mass index [BMI] 37.0-37.9, adult
CPT/HCPCS: 99204

== ENCOUNTER 2024-09-07 13:51 | Outpatient (AMB) | payer OTHER, SELFPAY ==
--- NOTE | 2024-09-07 14:03 | MHC.OFFVIS ---
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 She brought us reports of his MRI as well as images which are uploaded in our system. There is no significant changes on the MRI which could have explained her pain. There is no Modic type changes which could explain pain with prolonged sitting. Therefore there is only 1 possibility for her pain syndrome is coming from sacroiliitis on the right side. She will be scheduled on 10/24/2024 for sacroiliac joint diagnostic injection. After that we will evaluate her condition. Prior: very pleasant 29 years old female who presents in my office with complains of pain in the lower back with radiation of the pain to the right lower extremity to the level of the hip and thigh as well as mid lower leg. She had surgery formed in the past twice for the back surgery in the [facility] by Dr. Zee Iqbal. She reports her pain today 11/28. She reports that prolonged sitting flexing forward aggravate her pain. Standing also aggravate her pain. Activities also aggravate her pain. [facility] Medical History (Updated 09/01/24 @ 09:24 by Chung Ricci MD) Anxiety Depression Hypertension Insomnia Migraines Seizures Uncontrolled type 2 diabetes mellitus with hyperglycemia, with long-term current use of insulin High triglycerides Vitamin D deficiency Obesity (BMI 30-39.9) Seizure Preprocedural examination Annual physical exam Well woman exam with routine gynecological exam Endogenous depression Spondylosis of lumbar spine Radiculopathy, lumbar region Disc degeneration, lumbar High cholesterol Bilateral hand pain Surgical History History of back surgery H/O knee surgery History of section Family History Father Hypertension Mother Breast cancer Pelvic cancer Hypertension Diabetes Maternal Grandmother Diabetes Hypertension CVD (cardiovascular disease) Breast cancer Uterine cancer Ovarian cancer Maternal Grandfather Diabetes Hypertension CVD (cardiovascular disease) Lymphoma Social History Household Members: Children Housing: Apartment Alcohol intake: current Alcohol intake frequency: does not drink Patient Tobacco Use Status: Never used Tobacco e-Cigarette/Vaping Use: Never Used Second Hand Smoke Exposure: Yes service: No Current occupational status: disabled Cognitive needs: Yes (cane) Hearing needs: No Vision needs: No Female Reproductive History Menstrual Age of Menarche: 8 Review of Systems Const All systems reviewed & are unremarkable except as noted in HPI and below ENT Reports Normal hearing present Neuro Reports Normal hearing present, Denies Abnormal speech present, Denies confusion and Denies Sensory deficit (Neuro) Psych Denies confusion Physical Exam Vital Signs: Last Vital Signs Pulse 87 09/07/24 14:06 BP 187/96 H 09/07/24 14:06 Pulse Ox 98 09/07/24 14:06 Oxygen Delivery Method Room Air 09/07/24 14:06 BMI result Body Mass Index 37.9 Const General: no acute distress; No confusion Nutritional Appearance: obese morbidly obese Orientation/consciousness: patient oriented x3 and No confusion Eyes General: appearance normal, both eyes and all related structures Pupils: Equal, round and reactive pupils present EOM: EOMs intact bilaterally Neck Neck: Yes full ROM Chest Chest palpation & inspection: normal inspection of the chest Resp Effort & Inspection: normal respiratory effort, able to speak in complete sentences, normal respiratory pattern, no audible wheezes and no cough Cardio Jugular venous distension: no JVD GI Inspection: Yes normal to inspection Back/Spine/Pelvis Other: Small scar in the projection of the approximately L4-5 vertebral spinous processes is observed, the scar is very well-healed. Able to flex herself backwards but unable to flex herself forward at all. Able to stand on bilateral tiptoes and bilateral heels without difficulty. Zachary test is positive on the right. Gaenslen test is positive on the right. Pelvic compression test and pelvic distraction tests are both positive on the right. Fourteen finger test is positive on the right. SLR is positive on the right as well. However dorsiflexion of the right foot does not aggravate the pain. Neuro General: patient oriented x3, gait normal and No confusion Cranial nerves: Yes CN's II-XII intact bilaterally, Yes Equal, round and reactive pupils present, Yes Normal hearing present and Yes Ability to bilaterally elevate shoulders present Speech: No Abnormal speech present Gait exam (Neuro): Normal gait present Motor exam (neuro): 5/5 motor strength present throughout Sensory Exam: No Sensory deficit (Neuro) Extrem General: No pedal edema Psych Speech and movement: Normal speech and movement present Affect: normal affect Attitude: cooperative Thought process: Normal thought process present Thought content: Normal thought content present Insight: Good insight present (Psych) Judgement: Good judgement present (Psych) Assessment & Plan Assessment & Plan (1) Sacroiliac joint dysfunction of right side: Code(s): M53.3 - Sacrococcygeal disorders, not elsewhere classified Category: Medical (2) Sacroiliitis: Code(s): M46.1 - Sacroiliitis, not elsewhere classified Category: Medical (3) Postlaminectomy syndrome of lumbar region: Code(s): M96.1 - Postlaminectomy syndrome, not elsewhere classified Category: Medical (4) Chronic pain syndrome: Code(s): G89.4 - Chronic pain syndrome Category: Medical (5) Vertebrogenic low back pain: Code(s): M54.51 - Vertebrogenic low back pain Category: Medical Plan the pain of this patient most likely is multifactorial. She is morbidly obese, she might be suffering from sacroiliitis. To make clear whether or not she is suffering from sacroiliitis I offered the patient and I will be performing sacroiliac joint injection on the right. The procedure is scheduled for 10/24/2024. There is no indication on vertebra genic pain syndrome after I personally examined her MRI. I will returned to MRI evaluation and images only if the diagnostic sacroiliac joint injection will not be successful for this patient. Coding Level of Care Code Est Pt Level 3 (47696) Diagnoses Sacroiliac joint dysfunction of right side M53.3 Sacroiliitis M46.1 Postlaminectomy syndrome of lumbar region M96.1 Chronic pain syndrome G89.4 Vertebrogenic low back pain M54.51
[2024-09-07 14:06] VITALS: BP 187/96; PULSE 87; O2SAT 98; BMI 37.9
== END 2024-09-07 14:19 | disposition home or self-care (01) ==
LOC: HO.PMC 13:51
PROVIDERS: PCP Internal Medicine; Visit Provider Anesthesiology
DX: M53.3 Sacrococcygeal disorders, not elsewhere classified (principal); M46.1 Sacroiliitis, not elsewhere classified; M96.1 Postlaminectomy syndrome, not elsewhere classified; G89.4 Chronic pain syndrome; M54.51 Vertebrogenic low back pain
CPT/HCPCS: 99213

== ENCOUNTER → 2024-09-07 13:51 | Outpatient (BNVA) | payer OTHER, SELFPAY | PROVIDERS: PCP Internal Medicine; Visit Provider Anesthesiology | DX: M53.3 Sacrococcygeal disorders, not elsewhere classified (principal); M46.1 Sacroiliitis, not elsewhere classified; M96.1 Postlaminectomy syndrome, not elsewhere classified; M54.51 Vertebrogenic low back pain; G89.4 Chronic pain syndrome | CPT/HCPCS: 99212 ==

== ENCOUNTER 2024-09-08 12:32 | Outpatient (REF) | payer OTHER, SELFPAY ==
--- NOTE | ~2024-09-08 | CT_ITS ---
CLINICAL HISTORY: R51.9 - Headache, unspecified CT head without contrast Comparison: None Findings: No intra-axial mass, midline shift, hydrocephalus, or acute hemorrhage. No significant atrophy-like change or white matter disease. There is no sinus or mastoid fluid. The orbits are unremarkable. There is no acute fracture. IMPRESSION: 1. No acute intracranial findings. This document has been electronically signed by: Clarence Matthews MD on 09/11/2024 12:30:58
== END 2024-09-08 12:33 | disposition home or self-care (01) ==
LOC: HO.CT 12:32
PROVIDERS: PCP Internal Medicine; Visit Provider Physician Assistant Medical
DX: R56.9 Unspecified convulsions (principal); R51.9 Headache, unspecified
CPT/HCPCS: 70450

== ENCOUNTER → 2024-09-08 12:34 | Outpatient (BNV) | payer OTHER, SELFPAY | PROVIDERS: PCP Internal Medicine; Visit Provider Nuclear Medicine | DX: R51.9 Headache, unspecified (principal) | CPT/HCPCS: 70450 ==

== ENCOUNTER 2024-09-28 12:12 | Outpatient (AMB) | payer OTHER, SELFPAY ==
[2024-09-28 12:15] VITALS: BP 135/74; PULSE 85; BMI 38.3
--- NOTE | 2024-09-28 12:15 | A.OFFVIS_ITS ---
Vital Signs 09/28/24 12:15 Height 5 ft 10 in Weight 266 lb 12.149 oz BMI 38.3 BP 135/74 Blood Pressure Location Lt brachial Position Sitting Pulse 85 Intake Visit Reasons: f/u BENOIT Intake Note: Maria G returns in follow up of BENOIT. CC: Patient c/o acid reflux. Denies other GI symptoms. Creative Specialist Required: No Accompanied by: Self / Same As Patient Allergies penicillin V Allergy (Unknown, Verified 09/28/24 12:21) rash,hives, fever HPI HPI f/u BENOIT: Details: Assessment & Plan (1) BENOIT (nonalcoholic steatohepatitis): Comment: BASELINE LABS/WORK UP BENOIT fibrosis stage F2 by liver biopsy 01/2020, 01/2020: Autoimmune workup negative, ceruloplasmin normal, alpha 1 antitrypsin level normal, hemochromatosis screen is negative, fibrosis staging is F 2 by liver biopsy, 12/2019 baseline alpha fetoprotein is 1.3, ferritin elevated at 562, she has negative hepatitis a B and C. she is morbidly obese at this time. AST/ALT 161/155 with a GGT of 75 and normal total bilirubin and alk-phos ULTRASOUND OF THE ABDOMEN WITH ELASTOGRAPHY (F1-F2) 04/20/23 CURRENT LABS 09:26 WBC 5.2 Hgb 12.3 Hct 37.3 Plt Count 234 Estimated GFR > 60 Total Bilirubin 0.6 AST 42 H ALT 62 H Alkaline Phosphatase 97 Alpha Fetoprotein 2.1 ULTRASOUND OF THE ABDOMEN WITH ELASTOGRAPHY (F1-F2) 04/20/23 ULTRASOUND OF THE ABDOMEN 04/20/23 IMPRESSION: 1. There is hepatomegaly. 2. There is generalized increase in hepatic echotexture, consistent with fatty infiltration or hepatocellular disease. Please correlate clinically. No focal hepatic mass or intrahepatic biliary dilatation is seen. 3. Liver elastography: Measurements are suggestive of compensated advanced chronic liver disease but need further test for confirmation. 04/20/23 Code(s): K75.81 - Nonalcoholic steatohepatitis (BENOIT) (2) Morbid obesity: Code(s): E66.01 - Morbid (severe) obesity due to excess calories (3) Gallstones: Comment: not seen on most recent US Code(s): K80.20 - Calculus of gallbladder without cholecystitis without obstruction (4) Chlamydia infection: Comment: 09/10/2023 testing shows positive chlamydia (and Gardnerella) patient's phone not accept thing multiple calls. Registered letter to be sent needs treatment. Code(s): A74.9 - Chlamydial infection, unspecified (5) RUQ abdominal pain: Code(s): R10.11 - Right upper quadrant pain Plan We review the results and her transaminases are greatly improved since 2019. She has lost 25 lbs with intentional dieting. I believe that she is gone from triple digit transaminases to double digits largely because of her improved diabetes control and the weight loss does not hurt either. Over the past week she has been having pain in the right lower to mid abdomen. It is in the same place, worse with side laying or leaning against the area on the side. It is a burning/aching/throbbing sensation it is intermittent, at times coming and going and at times lasting all day. It does not seem to be r/t eating or BM. She would thought this was due to her gallstones but given the absence of gallstones on the most recent ultrasound and the lack of colicky nature or relation to eating or moving the bowels I doubt this. However we could consider a HIDA scan going forward. She has a recent chlamydia infection because her cheated on her. This may be r/t the pain, unsure. Watch and wait for now, along with a trial of dicyclomine to see if this affects the pain when it is at its more severe. ROV 6-8 weeks. Medications: New dicyclomine 10 mg PO QID 120 caps 3RF A74.9 - Chlamydial infection, unspecified, R10.11 - Right upper quadrant pain Laboratory Tests 08/14/24 10:57 Plt Count 271 Total Bilirubin 0.5 Direct Bilirubin 0.1 AST 31 ALT 46 H Alkaline Phosphatase 76 TODAY'S VISIT The berta solved her RUQ pain. SHe has occasional GERD but we discussed possible triggers and the use of either TUMS or Pepcid OTC. REviewed BENOIT labs and she continues to do well will order an ultrasound to update her monitoring. Again she has done extremely well with weight loss and the controlling her diabetes. I advised her as such keep her motivated because she does struggle with her weight and I think she needs to know that this is had a huge impact on her transaminitis and her overall liver health. Return office visit in 6 months [facility] Medical History (Updated 09/28/24 @ 13:34 by URSULA Wade) Bilateral hand pain Seizures Endogenous depression Frequent headaches Vertebrogenic low back pain Low back pain Chlamydia infection Back pain Sacroiliitis Encounter for screening examination for sexually transmitted disease Anxiety Depression Hypertension Insomnia Migraines Uncontrolled type 2 diabetes mellitus with hyperglycemia, with long-term current use of insulin High triglycerides Vitamin D deficiency Obesity (BMI 30-39.9) Seizure Preprocedural examination Annual physical exam Well woman exam with routine gynecological exam Spondylosis of lumbar spine Radiculopathy, lumbar region Disc degeneration, lumbar High cholesterol Surgical History History of back surgery H/O knee surgery History of section Family History Father Hypertension Mother Breast cancer Pelvic cancer Hypertension Diabetes Maternal Grandmother Diabetes Hypertension CVD (cardiovascular disease) Breast cancer Uterine cancer Ovarian cancer Maternal Grandfather Diabetes Hypertension CVD (cardiovascular disease) Lymphoma Social History Household Members: Children Housing: Apartment Alcohol intake: current Alcohol intake frequency: does not drink Patient Tobacco Use Status: Never used Tobacco e-Cigarette/Vaping Use: Never Used Second Hand Smoke Exposure: Yes service: No Current occupational status: disabled Cognitive needs: Yes (cane) Hearing needs: No Vision needs: No Female Reproductive History Menstrual Age of Menarche: 8 Review of Systems Const Denies fatigue, Denies fever(s), Denies night sweats, Denies poor appetite and Denies weight loss ENT Reports Normal hearing present, Denies dental pain, Denies dysphagia, Denies hearing loss, Denies mouth pain, Denies odynophagia, Denies throat swelling, Denies tongue swelling and Reports other (Dentition adequate) Card Reports no additional complaints Resp Reports no additional complaints GI Details: Denies abdominal pain, Denies melena, Denies bloating, Denies hematochezia, Denies constipation, Reports GI cramping, Denies dysphagia, Denies excessive flatus, Denies early satiety, Reports heartburn, Denies diarrhea, Denies nausea, Denies odynophagia, Denies vomiting and Denies hematemesis Skin/Breast Denies pruritus, Denies lesions, Denies rash and Denies jaundice Neuro Reports Normal hearing present and Denies Abnormal speech present Endo Denies fatigue Aller/Immun Denies throat swelling and Denies tongue swelling Physical Exam Vital Signs: BMI result Body Mass Index 38.3 Const General: cooperative, no acute distress, well developed and well groomed Nutritional Appearance: well nourished and obese Orientation/consciousness: oriented to person, oriented to place and oriented to time Limitations: No language barrier HEENT Head: Yes normocephalic and Yes atraumatic Eyes General: appearance normal, both eyes and all related structures Pupils: Equal, round and reactive pupils present Neck Neck: Yes normal visual inspection and Yes no lymphadenopathy Thyroid: Thyroid normal Resp Effort & Inspection: normal respiratory effort and able to speak in complete sentences Auscultation: clear to auscultation bilaterally Cardio Rate: regular rate Rhythm: regular rhythm Heart sounds: Normal, physiologic split S2 sound present Peripheral pulses: radial pulses present and posterior tibial pulses present GI Inspection: No distended, Yes Abdominal panniculus present and Yes obesity Palpation (GI): Soft to palpation, nontender, no guarding, not rigid and No hepatosplenomegaly present Percussion: Yes normal to percussion Auscultation: normal bowel sounds Rectal Exam - Female: deferred Skin General skin exam: no rashes or lesions noted, turgor normal, skin not dry, no jaundice, No spider nevi and no striae Rashes: no rashes Nails: normal Neuro General: oriented to person, oriented to place and oriented to time Cranial nerves: Yes Equal, round and reactive pupils present and Yes Normal hearing present Speech: No Abnormal speech present Extrem General: Yes normal to inspection, No clubbing, No cyanosis and No edema Psych Appearance: grossly normal and well kempt Mental Status: mental status grossly normal Speech and movement: Normal speech and movement present Affect: normal affect Attitude: cooperative Thought process: Normal thought process present and not confabulating Thought content: Normal thought content present Insight: Fair insight present (Psych) Judgement: Fair judgement present (Psych) Assessment & Plan Assessment & Plan (1) RUQ abdominal pain: Code(s): R10.11 - Right upper quadrant pain Category: Medical (2) Gallstones: Comment: not seen on most recent US Code(s): K80.20 - Calculus of gallbladder without cholecystitis without obstruction Category: Medical (3) BENOIT (nonalcoholic steatohepatitis): Comment: BASELINE LABS/WORK UP BENOIT fibrosis stage F2 by liver biopsy 01/2020, 01/2020: Autoimmune workup negative, ceruloplasmin normal, alpha 1 antitrypsin level normal, hem ochromatosis screen is negative, fibrosis staging is F 2 by liver biopsy, 12/2019 baseline alpha fetoprotein is 1.3, ferritin elevated at 562, she has negative hepatitis a B and C. she is morbidly obese at this time. AST/ALT 161/155 with a GGT of 75 and normal total bilirubin and alk-phos ULTRASOUND OF THE ABDOMEN WITH ELASTOGRAPHY (F1-F2) 04/20/23 CURRENT LABS 08/14/24 10:57 Plt Count 271 Total Bilirubin 0.5 Direct Bilirubin 0.1 AST 31 ALT 46 H Alkaline Phosphatase 76 ULTRASOUND OF THE ABDOMEN WITH ELASTOGRAPHY (F1-F2) 04/20/23 ULTRASOUND OF THE ABDOMEN 04/20/23 IMPRESSION: 1. There is hepatomegaly. 2. There is generalized increase in hepatic echotexture, consistent with fatty infiltration or hepatocellular disease. Please correlate clinically. No focal hepatic mass or intrahepatic biliary dilatation is seen. 3. Liver elastography: Measurements are suggestive of compensated advanced chronic liver disease but need further test for confirmation. 04/20/23 Code(s): K75.81 - Nonalcoholic steatohepatitis (BENOIT) Category: Medical Plan The berta solved her RUQ pain. Given her history of gallstones I passed ultrasound, although it was not seen on the most recent, I did review signs and symptoms that would be alarming that would cause her to present to the ER with possible cholecystitis. A times things like sludge or even stones can be missed. SHe has occasional GERD but we discussed possible triggers and the use of either TUMS or Pepcid OTC. REviewed BENOIT labs and she continues to do well will order an ultrasound to update her monitoring. Again she has done extremely well with weight loss and the controlling her diabetes. I advised her as such keep her motivated because she does struggle with her weight and I think she needs to know that this is had a huge impact on her transaminitis and her overall liver health. Return office visit in 6 months Orders: Orders US abdomen santizo w elastography Today K75.81 - Nonalcoholic steatohepatitis (BENOIT) Medications: New dicyclomine 10 mg PO Q6H PRN 90 caps 6RF abdominal pain R10.11 - Right upper quadrant pain Coding Level of Care Code Est Pt Level 3 (57605) Diagnoses RUQ abdominal pain R10.11 Gallstones K80.20 BENOIT (nonalcoholic steatohepatitis) K75.81
== END 2024-09-28 12:44 | disposition home or self-care (01) ==
PROVIDERS: PCP Internal Medicine; Visit Provider Nurse Practitioner
DX: R10.11 Right upper quadrant pain (principal); K80.20 Calculus of gallbladder without cholecystitis without obstruction; K75.81 Nonalcoholic steatohepatitis (NASH)
CPT/HCPCS: 99213

== ENCOUNTER → 2024-09-28 12:12 | Outpatient (BNVA) | payer OTHER, SELFPAY | PROVIDERS: PCP Internal Medicine; Visit Provider Nurse Practitioner | DX: K75.81 Nonalcoholic steatohepatitis (NASH) (principal); K80.20 Calculus of gallbladder without cholecystitis without obstruction; R10.11 Right upper quadrant pain | CPT/HCPCS: 99212 ==

== ENCOUNTER 2024-10-12 12:47 | Outpatient (AMB) | payer OTHER, SELFPAY ==
[2024-10-12 13:00] VITALS: BP 132/80; PULSE 80; TEMP 36.3; O2SAT 98; BMI 37.9
--- NOTE | 2024-10-12 13:00 | A.OFFPC_ITS ---
Vital Signs 10/12/24 13:00 Height 5 ft 10 in Weight 264 lb 4 oz BMI 37.9 BP 132/80 Blood Pressure Location Lt brachial Position Sitting Pulse 80 Pulse Source Pulse Oximeter Temp 97.3 F Temp Source Temporal Artery Scan Pulse Oximetry (%) 98 Oxygen Delivery Method Room Air Intake Visit Reasons: dm/weight loss Intake Note: Patient is here to follow up on DM, Weight loss. Concern with hormonal acne and monthly cycle issues. 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 Accompanied by: Self / Same As Patient Allergies penicillin V Allergy (Unknown, Verified 10/12/24 14:35) rash,hives, fever Medication List - Last Reconciled 10/12/24 by Wendy Landrum PA-C atorvastatin 40 mg PO DAILY blood sugar diagnostic (FreeStyle Test strips) Test bs three time a day lucuojvzpx-pdguxlaztrlgj-vlyb 50-300-40 mg (Fioricet) 1 cap PO Q8H PRN cholecalciferol (vitamin D3) 1,250 mcg PO QWEEK 3 months dicyclomine 10 mg PO Q6H PRN flash glucose scanning reader (GetShopAppStyle Hannah 14 Day [place]) As directed flash glucose sensor (FreeStyle Hannah 14 Day Sensor kit) USE DIRECTED gabapentin 300 mg PO TID 90 days hydrocortisone 2.5% 1 appl topical BID-TID PRN hydrocortisone 2.5% 1 appl topical BID PRN hydroxyzine HCl 25 mg PO TID PRN 90 days insulin degludec (Tresiba FlexTouch U-100 insulin) 15 units (0.15 mL) subcut BEDTIME lancing device As directed losartan 25 mg PO DAILY 90 days medroxyprogesterone (Provera) 10 mg PO DAILY medroxyprogesterone (Provera) 10 mg PO DAILY meloxicam 15 mg PO DAILY pen needle, diabetic (BD Hanny 2nd Gen Pen Needle) As directed daily sertraline 50 mg PO DAILY sitagliptin phosphate (Januvia) 50 mg PO DAILY tirzepatide (Mounjaro) 2.5 mg (0.5 mL) subcut QWEEK tizanidine 2 mg PO BEDTIME PRN topiramate 100 mg PO DAILY trazodone 100 mg PO BEDTIME PRN 90 days Tobacco use date assessed: 10/12/24 Dental Screening Dental Screen Date: 08/04/24 Did you have a dental visit in the last 12 months?: Yes Did you have a dental problem in the last 6 months where you did not have access to dental care?: No Was dental information given to patient?: Patient has dentist HPI dm/weight loss HPI Details The patient is a 29-year-old female presenting with amenorrhea. She has not had a menstrual period since August 16 and denies any possibility of due to lack of sexual activity over the past year. Initially, she experienced menstrual irregularities that led to brief menstruation following an estrogen course prescribed by her boat engine mechanic. Ultrasound studies have shown ovarian cysts, aligning with a suspected Polycystic Ovary Syndrome diagnosis, especially as she now experiences acne likely related to hormonal fluctuations. The patient denies any recent major life changes or significant emotional stress. Additionally, she manages a history of Type 2 Diabetes Mellitus, currently controlled with Tresiba due to insurance limitations for other medications (e.g., Trulicity and Ozempic). Attempts to collaborate with weight management programs proved costly, placing more burden despite understanding the need for weight control due to its link to both diabetes and gynecological issues. Social History - Denies current sexual activity for ove r a year. - Reports challenges in affording recomm ended weight management prescriptions and programs. - Expresses frustration over insurance l imitations impacting diabetes and weight management medication access. [facility] Medical History (Updated 10/12/24 @ 14:38 by Wendy Landrum PA-C) Acne vulgaris Amenorrhea Bilateral hand pain Seizures Endogenous depression Frequent headaches Vertebrogenic low back pain Low back pain Chlamydia infection Back pain Sacroiliitis Encounter for screening examination for sexually transmitted disease Anxiety Depression Hypertension Insomnia Migraines Uncontrolled type 2 diabetes mellitus with hyperglycemia, with long-term current use of insulin High triglycerides Vitamin D deficiency Obesity (BMI 30-39.9) Seizure Preprocedural examination Annual physical exam Well woman exam with routine gynecological exam Spondylosis of lumbar spine Radiculopathy, lumbar region Disc degeneration, lumbar High cholesterol Surgical History History of back surgery H/O knee surgery History of section Family History Father Hypertension Mother Breast cancer Pelvic cancer Hypertension Diabetes Maternal Grandmother Diabetes Hypertension CVD (cardiovascular disease) Breast cancer Uterine cancer Ovarian cancer Maternal Grandfather Diabetes Hypertension CVD (cardiovascular disease) Lymphoma Social History Household Members: Children Housing: Apartment Alcohol intake: current Alcohol intake frequency: does not drink Patient Tobacco Use Status: Never used Tobacco e-Cigarette/Vaping Use: Never Used Second Hand Smoke Exposure: Yes service: No Current occupational status: disabled Cognitive needs: Yes (cane) Hearing needs: No Vision needs: No Female Reproductive History Menstrual Age of Menarche: 8 Questionnaire Thrive Questionnaire Date Thrive assessed: 08/04/24 KAI-7 AMB Questionnaire KAI-7 Date KAI - 7 assessed: 08/04/24 Source: Developed by Drs. Emile Prince, Andra Barfield, Velasquez Frances and colleagues, with an educational keeley from [employer]. Review of Systems Const Details: - Genitourinary: Reports amenorrhea since August 16; denies sexual activity for over a year. - Skin: Reports development of acne. - Endocrine: No recent changes in weight or menstruation despite an irregular pattern. - General: Denies recent life stressors or significant lifestyle changes. - Metabolic: Currently managing Type 2 Diabetes Mellitus. Physical exam (Primary Care) Vital Signs: Last Vital Signs Temp 97.3 F 10/12/24 13:00 Pulse 80 10/12/24 13:00 BP 132/80 10/12/24 13:00 Pulse Ox 98 10/12/24 13:00 Oxygen Delivery Method Room Air 10/12/24 13:00 Care Plan Goal for BP management: <130/90 at Goal BMI result Body Mass Index 37.9 BMI Assessment/Plan discussion: High BMI High, discussed plan: lifestyle, weight reduction, dietary, physical activity and alcohol moderation Tobacco/Smoking Status: Tobacco use Status Tobacco use date assessed 10/12/24 10/12/24 13:08 Patient Tobacco Use Status Never used Tobacco 10/12/24 13:08 e-Cigarette/Vaping Use Never Used 10/12/24 13:08 Thrive Assessment: Date of Thrive Assessment Date Thrive assessed 08/04/24 10/12/24 13:08 Const Other: Appearance: Alert. Oriented X3. No acute distress. Head: Normal external exam. Normocephalic. Atraumatic. Eyes: Pupils are equal, round, and reactive to light. Extraocular movements intact. Conjunctiva and sclera normal. Eyelids normal. Throat: Pharynx normal. Uvula midline. Moist mucous membranes. Neck: Normal inspection. Neck supple. Full range of motion. Cardiovascular: Normal heart rate and rhythm. Respiratory: No respiratory distress. Painless inspiration. Back: Full range of motion noted. Skin: Skin warm and dry. Normal skin color. Normal skin turgor. No rashes/lesions/lacerations noted. Acne noted. Extremities: No lower extremity edema. Extremities exhibit normal range of motion. Extremities nontender. Neuro: Oriented X 3. No motor deficit. No sensory deficit. Reflexes normal. Results Reviewed Results Reviewed: - Labs: A1c level at 5.7. - Tests and Diagnostics: Previous ultrasounds show bilateral ovarian cysts. Coding Level of Care Code Est Pt Level 4 (13664) Complex EM visit Add On G2211 Diagnoses Obesity (BMI 30-39.9) E66.9 Uncontrolled type 2 diabetes mellitus with hyperglycemia, with long-term current use of insulin E11.65; Z79.4 Amenorrhea N91.2 Acne vulgaris L70.0 Assessment & Plan Assessment & Plan (1) Obesity (BMI 30-39.9): Code(s): E66.9 - Obesity, unspecified Category: Medical Plan: Stress the importance of continued weight management despite programmatic financial barriers, exploring potentially alternative insurance alignments for accessible pharmacotherapeutic support. Condition is chronic and stable continue to monitor. (2) Uncontrolled type 2 diabetes mellitus with hyperglycemia, with long-term current use of insulin: Code(s): E11.65 - Type 2 diabetes mellitus with hyperglycemia; Z79.4 - snf (current) use of insulin Category: Medical Plan: Mounjaro is a considered alternative contingent on insurance coverage for better glycemic control, supplementing current management limitations imposed by non- coverage of first-line GLP-1 medications. Condition is chronic and stable will continue to monitor. (3) Amenorrhea: Code(s): N91.2 - Amenorrhea, unspecified Category: Medical Plan: Provera (medroxyprogesterone) may be reinitiated as a cyclical intervention to induce menstruation as advised based on previous therapeutic success. Condition is stable continue to monitor. (4) Acne vulgaris: Code(s): L70.0 - Acne vulgaris Category: Medical Plan: Emphasis on enhancing skincare routines that target hormonal acne onset without new prescription initiation. Santoy she is chronic and stable will continue to monitor. Plan Plan Patient was informed and verbally consented to the use of an ambient scribe for clinic note documentation during this visit. 1. Secondary Amenorrhea Provera (medroxyprogesterone) may be reinitiated as a cyclical intervention to induce menstruation as advised based on previous therapeutic success. 2. Type 2 Diabetes Mellitus Mounjaro is a considered alternative contingent on insurance coverage for better glycemic control, supplementing current management limitations imposed by non- coverage of first-line GLP-1 medications. 3. Acne Vulgaris Emphasis on enhancing skincare routines that target hormonal acne onset without new prescription initiation. 4. Obesity Stress the importance of continued weight management despite programmatic financial barriers, exploring potentially alternative insurance alignments for accessible pharmacotherapeutic support. During the consultation, I discussed the patient's secondary amenorrhea and its management with Provera for menstruation induction. Potential hormonal etiologies were explored, emphasizing communication with her boat engine mechanic. In managing Type 2 Diabetes Mellitus, I recommended the use of Mounjaro, conditional on insurance approval, due [facility]. Discussions included the associated frustration with insurance barring needed medication, prompting exploration of changing plans for improved medication access, including weight loss management support worsened by provider denial of financial support measures. We agreed on the importance of addressing acne due to possible hormonal links, while planning future follow-ups timely to recent labwork and ultrasound findings. 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 - If Mounjaro is approved, schedule a one-month follow-up to assess its effects. - Continue monitoring your physical activity and dietary habits as integral parts of diabetes management. - Contact your health plan provider to explore coverage changes for more comprehensive medication support. - Return to the clinic if you experience unexpected symptoms like changes in vision or additional skin alterations. - Keep scheduled appointments diligently to allow for continuous management of current health concerns.
== END 2024-10-12 13:28 | disposition home or self-care (01) ==
LOC: HO.HMCH 12:48
PROVIDERS: PCP Internal Medicine; Visit Provider Physician Assistant Medical
DX: E11.65 Type 2 diabetes mellitus with hyperglycemia (principal); E66.9 Obesity, unspecified; Z79.4 Long term (current) use of insulin; Z68.37 Body mass index [BMI] 37.0-37.9, adult; N91.2 Amenorrhea, unspecified; L70.0 Acne vulgaris

== ENCOUNTER → 2024-10-12 12:47 | Outpatient (BNVA) | payer OTHER, SELFPAY | PROVIDERS: PCP Internal Medicine; Visit Provider Physician Assistant Medical | DX: E66.9 Obesity, unspecified (principal); Z68.37 Body mass index [BMI] 37.0-37.9, adult; E11.65 Type 2 diabetes mellitus with hyperglycemia; N91.2 Amenorrhea, unspecified; L70.0 Acne vulgaris; Z79.4 Long term (current) use of insulin | CPT/HCPCS: 99212 ==

== ENCOUNTER 2024-10-24 06:28 | Outpatient (REF) | payer OTHER, SELFPAY | END 2024-10-24 06:29 | disposition home or self-care (01) | LOC: CF 06:28 | PROVIDERS: Visit Provider Anesthesiology | DX: Z13.89 Encounter for screening for other disorder (principal) ==

== ENCOUNTER 2025-01-09 06:13 | Outpatient (REF) | payer OTHER, SELFPAY | END 2025-01-09 06:14 | disposition home or self-care (01) | LOC: CF 06:13 | PROVIDERS: Visit Provider Anesthesiology | DX: Z13.89 Encounter for screening for other disorder (principal) ==

== ENCOUNTER 2025-02-08 10:55 | Outpatient (AMB) | payer OTHER, SELFPAY ==
[2025-02-08 10:58] VITALS: BP 114/76; BMI 37.3
--- NOTE | 2025-02-08 10:58 | MHC.OFFVIS ---
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 She had a history of anovulatory cycles with PCOS diagnosis. She reports now that she is not weight loss management and has reduced her hemoglobin A1c, stabilized her blood sugars, lost weight she reports having regular cycles for the last several months without use of medication. Overall she is feeling better and has more energy. She has increased her activity level. Currently not sexually active due to partners medical concerns. She is still hoping for a future . FORMERLY [facility], [facility] Medical History (Updated 02/08/25 @ 15:03 by Nimo Gan CNM) History of PCOS Acne vulgaris Amenorrhea Bilateral hand pain Seizures Endogenous depression Frequent headaches Vertebrogenic low back pain Low back pain Chlamydia infection Back pain Sacroiliitis Encounter for screening examination for sexually transmitted disease Anxiety Depression Hypertension Insomnia Migraines Uncontrolled type 2 diabetes mellitus with hyperglycemia, with long-term current use of insulin High triglycerides Vitamin D deficiency Obesity (BMI 30-39.9) Seizure Preprocedural examination Annual physical exam Well woman exam with routine gynecological exam Spondylosis of lumbar spine Radiculopathy, lumbar region Disc degeneration, lumbar High cholesterol Surgical History History of back surgery H/O knee surgery History of section Family History Father Hypertension Mother Breast cancer Pelvic cancer Hypertension Diabetes Maternal Grandmother Diabetes Hypertension CVD (cardiovascular disease) Breast cancer Uterine cancer Ovarian cancer Maternal Grandfather Diabetes Hypertension CVD (cardiovascular disease) Lymphoma Social History Household Members: Children Housing: Apartment Alcohol intake: current Alcohol intake frequency: does not drink Patient Tobacco Use Status: Never used Tobacco e-Cigarette/Vaping Use: Never Used Second Hand Smoke Exposure: Yes service: No Current occupational status: disabled Cognitive needs: Yes (cane) Hearing needs: No Vision needs: No Female Reproductive History Menstrual Age of Menarche: 8 Duration of menses: 6-7 days Date of last menstrual period: 02/01/25 Review of Systems Const All systems reviewed & are unremarkable except as noted in HPI and below Endo Reports no additional complaints Physical Exam Vital Signs: Last Vital Signs BP 114/76 02/08/25 10:58 BMI result Body Mass Index 37.3 Const General: cooperative, healthy appearing and no acute distress Psych Appearance: well kempt Attitude: cooperative Thought process: Normal thought process present Assessment & Plan Assessment & Plan (1) Anovulatory cycle: Code(s): N97.0 - Female infertility associated with anovulation Plan Counseled regarding medication use, changed to Prometrium. Use if not cycling at least every 2 months. If any risk for or suspected to do a home test and report to the office for a follow up care. Annual exam as scheduled next month. The patient expressed understanding and agreement with the plan of care. All of her questions and concerns were addressed to the best of my ability. This note is constructed using voice recognition software. While every effort has been made to ensure accuracy, magazine writer errors may have been included. Medications: New progesterone micronized (Prometrium) take 1st 12 days of each calendar month 200 mg PO .monthly 10 caps 2RF 10 days Discontinued medroxyprogesterone (Provera) Discontinued Reason: Patient Completed Course 10 mg PO DAILY 10 tabs 0RF medroxyprogesterone (Provera) Discontinued Reason: Patient Completed Course 10 mg PO DAILY 10 tabs 0RF Coding Level of Care Code Est Pt Level 3 (42973) Diagnoses Anovulatory cycle N97.0
== END 2025-02-08 11:17 | disposition home or self-care (01) ==
LOC: HO.HWS 10:55
PROVIDERS: PCP Internal Medicine; Visit Provider Advanced Practice Midwife
DX: N97.0 Female infertility associated with anovulation (principal)
CPT/HCPCS: 99213

== ENCOUNTER → 2025-02-08 10:55 | Outpatient (BNVA) | payer OTHER, SELFPAY | PROVIDERS: PCP Internal Medicine; Visit Provider Advanced Practice Midwife | DX: N97.0 Female infertility associated with anovulation (principal) | CPT/HCPCS: 99212 ==

== ENCOUNTER 2025-03-13 06:15 | Outpatient (REF) | payer OTHER, SELFPAY ==
--- NOTE | ~2025-03-13 | FL_ITS ---
EXAMINATION: FL GUIDANCE ONLY HISTORY: M53.3 - Sacrococcygeal disorders, not elsewhere classified COMPARISON: None available. TECHNIQUE: Fluoroscopy time: 14 seconds. Cumulative Dose: 2.6 mGy. DAP: 91.35 uGym2 Images: 2. FINDINGS: Fluoroscopic spot films of the right hemipelvis demonstrate a needle and contrast material in the region of the sacroiliac joint. FL/FL guidance in treatment room IMPRESSION: Fluoroscopy during procedure. Please see procedure report for additional information. Electronically signed by: Emile Maldonado MD 03/15/2025 07:17 AM EDT
== END 2025-03-13 06:16 | disposition home or self-care (01) ==
LOC: CF 06:15
PROVIDERS: Visit Provider Anesthesiology
DX: M53.3 Sacrococcygeal disorders, not elsewhere classified (principal)
CPT/HCPCS: 27096; J2003; J2795; Q9967

== ENCOUNTER 2025-03-13 12:24 | Outpatient (AMB) | payer OTHER, SELFPAY ==
[2025-03-13 12:56] VITALS: BP 132/77; PULSE 79; RESP 18; O2SAT 99; BMI 37.3
--- NOTE | 2025-03-13 12:56 | A.OFFVIS_ITS ---
Vital Signs 03/13/25 12:56 Height 5 ft 10 in Weight 260 lb BMI 37.3 BP 132/77 Blood Pressure Location Lt brachial Position Sitting Respiration 18 Pulse 79 Pulse Source Pulse Oximeter Pulse Oximetry (%) 99 Oxygen Delivery Method Room Air Intake Visit Reasons: RIGHT DIAGNOSTIC SIJ INJECTION Forensic Manager Required: No Allergies penicillin V Allergy (Unknown, Verified 02/08/25 10:58) rash,hives, fever PFSH Medical History (Updated 02/08/25 @ 15:03 by Nimo Gan CNM) History of PCOS Acne vulgaris Amenorrhea Bilateral hand pain Seizures Endogenous depression Frequent headaches Vertebrogenic low back pain Low back pain Chlamydia infection Back pain Sacroiliitis Encounter for screening examination for sexually transmitted disease Anxiety Depression Hypertension Insomnia Migraines Uncontrolled type 2 diabetes mellitus with hyperglycemia, with long-term current use of insulin High triglycerides Vitamin D deficiency Obesity (BMI 30-39.9) Seizure Preprocedural examination Annual physical exam Well woman exam with routine gynecological exam Spondylosis of lumbar spine Radiculopathy, lumbar region Disc degeneration, lumbar High cholesterol Surgical History History of back surgery H/O knee surgery History of section Family History Father Hypertension Mother Breast cancer Pelvic cancer Hypertension Diabetes Maternal Grandmother Diabetes Hypertension CVD (cardiovascular disease) Breast cancer Uterine cancer Ovarian cancer Maternal Grandfather Diabetes Hypertension CVD (cardiovascular disease) Lymphoma Social History Household Members: Children Housing: Apartment Alcohol intake: current Alcohol intake frequency: does not drink Patient Tobacco Use Status: Never used Tobacco e-Cigarette/Vaping Use: Never Used Second Hand Smoke Exposure: Yes service: No Current occupational status: disabled Cognitive needs: Yes (cane) Hearing needs: No Vision needs: No Female Reproductive History Menstrual Age of Menarche: 8 Physical Exam Vital Signs: Last Vital Signs Pulse 79 03/13/25 12:56 Resp 18 03/13/25 12:56 BP 132/77 03/13/25 12:56 Pulse Ox 99 03/13/25 12:56 Oxygen Delivery Method Room Air 03/13/25 12:56 BMI result Body Mass Index 37.3 Assessment & Plan Assessment & Plan (1) Sacroiliac joint dysfunction of right side: Code(s): M53.3 - Sacrococcygeal disorders, not elsewhere classified Category: Medical Plan Right Diagnostic Sacroiliac joint injection. Informed consent was explained thoroughly to the patient.? All questions about benefits and risks for the procedure were answered. Patient came to the operating room and was positioned prone on the operating table with the pillow under the abdomen.? The lower back and buttocks of the patient were prepped with ChloraPrep prepped and draped with sterile utility towels.? Sterilely draped C-arm was brought over the operating field and sq picture of patient's pelvis was demonstrated on the screen.? For the right joint tilting C-arm contralateral to the site of the joint the most posterior portion of the joints was superimposed with anterior silhouette of the joint.? Skin was injected in the projection of the joint slightly medial to the location of the joint with 25 gauge 1/2 inch needle using local lidocaine 2% mixed with ropivacaine 0.5% one to one. After that 22 gauge 3 and 1/2 inch needle was driven to the right in tunnel vision fashion.? When needle entered the joint capsule injection of the contrast was performed demonstrating intra-articular and minimally periarticular spread of the contrast.? After that 5 cc. of ropivacaine 0.5% was injected into each joint. Upon completion of the injections the needles were removed, Band-Aids were applied.? Upon completion of the injection patient was taken outside of the operating room to the recovery room where recovered uneventfully. Orders: Orders FL guidance in treatment room Today M53.3 - Sacrococcygeal disorders, not elsewhere classified Coding Level of Care Code Procedure Only Diagnoses Sacroiliac joint dysfunction of right side M53.3
== END 2025-03-13 13:26 | disposition home or self-care (01) ==
LOC: HO.PMCPRC 12:24
PROVIDERS: PCP Internal Medicine; Visit Provider Anesthesiology
DX: M53.3 Sacrococcygeal disorders, not elsewhere classified (principal)
CPT/HCPCS: 27096

== ENCOUNTER 2025-03-15 09:21 | Outpatient (AMB) | payer OTHER, SELFPAY ==
--- NOTE | 2025-03-15 09:46 | A.OFFVIS_ITS ---
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 We attempted right sacroiliac joint injection for this patient. She reports no pain improvement at all. She reports the pain continues to be aggravated with activities of daily living, she did not feel any improvement from sacroiliac joint. This patient is suffering from postlaminectomy syndrome. I offered this patient spinal cord stimulator [employer]. Brochure was given. She was also given brochure about [facility] psychological evaluation. After she will complete psychological evaluation we will schedule her for the discussion of the trial of [employer] spinal cord stimulator. She brought us reports of his MRI as well as images which are uploaded in our system. There is no significant changes on the MRI which could have explained her pain. There is no Modic type changes which could explain pain with prolonged sitting. She complains on pain in the lower back with radiation into the right lower extremity and sensation of the numbness in almost entire lower extremity. I explained to the patient and numbness sensation is probably is damage which was done by her discs compressing her nerves and I can not do anything about it. However I promised that if she will like [employer] spinal cord stimulation results I will be glad to perform permanent implant. Prior: very pleasant 29 years old female who presents in my office with complains of pain in the lower back with radiation of the pain to the right lower extremity to the level of the hip and thigh as well as mid lower leg. She had surgery formed in the past twice for the back surgery in the [facility] by Dr. Zee Iqbal. She reports her pain today 11/28. She reports that prolonged sitting flexing forward aggravate her pain. Standing also aggravate her pain. Activities also aggravate her pain. FORMERLY [facility] Medical History (Updated 02/08/25 @ 15:03 by Nimo Gan CNM) History of PCOS Acne vulgaris Amenorrhea Bilateral hand pain Seizures Endogenous depression Frequent headaches Vertebrogenic low back pain Low back pain Chlamydia infection Back pain Sacroiliitis Encounter for screening examination for sexually transmitted disease Anxiety Depression Hypertension Insomnia Migraines Uncontrolled type 2 diabetes mellitus with hyperglycemia, with long-term current use of insulin High triglycerides Vitamin D deficiency Obesity (BMI 30-39.9) Seizure Preprocedural examination Annual physical exam Well woman exam with routine gynecological exam Spondylosis of lumbar spine Radiculopathy, lumbar region Disc degeneration, lumbar High cholesterol Surgical History History of back surgery H/O knee surgery History of section Family History Father Hypertension Mother Breast cancer Pelvic cancer Hypertension Diabetes Maternal Grandmother Diabetes Hypertension CVD (cardiovascular disease) Breast cancer Uterine cancer Ovarian cancer Maternal Grandfather Diabetes Hypertension CVD (cardiovascular disease) Lymphoma Social History Household Members: Children Housing: Apartment Alcohol intake: current Alcohol intake frequency: does not drink Patient Tobacco Use Status: Never used Tobacco e-Cigarette/Vaping Use: Never Used Second Hand Smoke Exposure: Yes service: No Current occupational status: disabled Cognitive needs: Yes (cane) Hearing needs: No Vision needs: No Female Reproductive History Menstrual Age of Menarche: 8 Review of Systems Const All systems reviewed & are unremarkable except as noted in HPI and below ENT Reports Normal hearing present Neuro Reports Normal hearing present, Denies Abnormal speech present, Denies confusion and Denies Sensory deficit (Neuro) Psych Denies confusion Physical Exam Vital Signs: Last Vital Signs Pulse 83 03/15/25 09:47 BP 143/98 H 03/15/25 09:47 Pulse Ox 99 03/15/25 09:47 Oxygen Delivery Method Room Air 03/15/25 09:47 Const General: no acute distress; No confusion Nutritional Appearance: obese morbidly obese Orientation/consciousness: patient oriented x3 and No confusion Eyes General: appearance normal, both eyes and all related structures Pupils: Equal, round and reactive pupils present EOM: EOMs intact bilaterally Neck Neck: Yes full ROM Chest Chest palpation & inspection: normal inspection of the chest Resp Effort & Inspection: normal respiratory effort, able to speak in complete sentences, normal respiratory pattern, no audible wheezes and no cough Cardio Jugular venous distension: no JVD GI Inspection: Yes normal to inspection Back/Spine/Pelvis Other: Small scar in the projection of the approximately L4-5 vertebral spinous processes is observed, the scar is very well-healed. Able to flex herself backwards but unable to flex herself forward at all. Able to stand on bilateral tiptoes and bilateral heels without difficulty. Zachary test is positive on the right. Gaenslen test is positive on the right. Pelvic compression test and pelvic distraction tests are both positive on the right. Fourteen finger test is positive on the right. SLR is positive on the right as well. However dorsif lexion of the right foot does not aggravate the pain. Neuro General: patient oriented x3, gait normal and No confusion Cranial nerves: Yes CN's II-XII intact bilaterally, Yes Equal, round and reactive pupils present, Yes Normal hearing present and Yes Ability to bilaterally elevate shoulders present Speech: No Abnormal speech present Gait exam (Neuro): Normal gait present Motor exam (neuro): 5/5 motor strength present throughout Sensory Exam: No Sensory deficit (Neuro) Extrem General: No pedal edema Psych Speech and movement: Normal speech and movement present Affect: normal affect Attitude: cooperative Thought process: Normal thought process present Thought content: Normal thought content present Insight: Good insight present (Psych) Judgement: Good judgement present (Psych) Results Reviewed Results Reviewed: MRI 09/29/2017.: The marrow signal is homogeneous. There are no compression fractures or s ubluxation. Mildly reduced intradiscal signal is evident from the L5-S1 levels without loss of disc height. The distal cord conus tip and cauda equina nerve roots appear normal. No central canal stenosis is seen. L1-L2 disc space is normal at the L2-L3 level there is a mild annular bulge. At L3-L4 level there is a shallow broad-based right paracentral to posterior lateral disc protrusion with minimal encroachment upon the right neural foramina no nerve root impingement is seen. At the L4-5 level there is a small central disc protrusion with very mild disc bulge without central canal stenosis of foraminal narrowing. At L5-S1 level there is a very small central disc protrusion and mild endplate spurring with small right foraminal disc protrusion and visible abutting the exiting right L5 nerve root. Assessment & Plan Assessment & Plan (1) Sacroiliac joint dysfunction of right side: Code(s): M53.3 - Sacrococcygeal disorders, not elsewhere classified Category: Medical (2) Postlaminectomy syndrome of lumbar region: Code(s): M96.1 - Postlaminectomy syndrome, not elsewhere classified Category: Medical (3) Chronic pain syndrome: Code(s): G89.4 - Chronic pain syndrome Category: Medical Plan the pain of this patient most likely is multifactorial. Unlikely vertebra genic pain syndrome is part of this patient's condition. Sacroiliitis is also out of the picture. Therefore postlaminectomy syndrome the only option I have to offer to this patient. I offered her treatment of postlaminectomy syndrome with spinal cord stimulator [employer]. Brochure of [facility] psychological evaluation was given to the patient. Patient expressed understanding. I explained to the patient that only with certain results of the trial of spinal cord stimulator we will go for permanent implants. Patient Instructions: I here by testify that I spent 30 minutes in conversation with this patient as well as planning her care and organizing this note. Coding Level of Care Code Est Pt Level 4 (52025) Diagnoses Sacroiliac joint dysfunction of right side M53.3 Postlaminectomy syndrome of lumbar region M96.1 Chronic pain syndrome G89.4
[2025-03-15 09:47] VITALS: BP 143/98; PULSE 83; O2SAT 99
== END 2025-03-15 10:28 | disposition home or self-care (01) ==
LOC: HO.PMC 09:22
PROVIDERS: PCP Internal Medicine; Visit Provider Anesthesiology
DX: M96.1 Postlaminectomy syndrome, not elsewhere classified (principal); M53.3 Sacrococcygeal disorders, not elsewhere classified; G89.4 Chronic pain syndrome
CPT/HCPCS: 99214

== ENCOUNTER → 2025-03-15 09:21 | Outpatient (BNVA) | payer OTHER, SELFPAY | PROVIDERS: PCP Internal Medicine; Visit Provider Anesthesiology | DX: G89.4 Chronic pain syndrome (principal); M53.3 Sacrococcygeal disorders, not elsewhere classified; M96.1 Postlaminectomy syndrome, not elsewhere classified | CPT/HCPCS: 99212 ==

== ENCOUNTER 2025-04-09 12:59 | Outpatient (AMB) | payer OTHER, SELFPAY ==
[2025-04-09 12:58] VITALS: BP 124/80; PULSE 82; TEMP 36.6; O2SAT 96; BMI 38.2
--- NOTE | 2025-04-09 12:58 | A.OFFPC_ITS ---
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 Required: No Accompanied by: Self / Same As Patient Allergies penicillin V Allergy (Unknown, Verified 04/24/25 14:17) rash,hives, fever Medication List - Last Reconciled 05/10/25 by NADIR Piña atorvastatin 40 mg PO DAILY blood sugar diagnostic (FreeStyle Test strips) Test bs three time a day [id number]-[id number] 50-300-40 mg (Fioricet) 1 cap PO Q8H PRN cholecalciferol (vitamin D3) 1,250 mcg PO QWEEK 3 months flash glucose scanning reader (FreeStyle Hannah 14 Day [place]) As directed flash glucose sensor (FreeStyle Hannah 14 Day Sensor kit) USE DIRECTED gabapentin 300 mg PO TID 90 days hydroxyzine HCl 25 mg PO TID PRN 90 days insulin degludec (Tresiba FlexTouch U-100 insulin) 15 units (0.15 mL) subcut BEDTIME lancing device As directed losartan 25 mg PO DAILY 90 days meloxicam 15 mg PO DAILY pen needle, diabetic (BD Hanny 2nd Gen Pen Needle) As directed daily progesterone micronized (Prometrium) 200 mg PO .monthly 10 days sertraline 50 mg PO DAILY tirzepatide (Mounjaro) 5 mg (0.5 mL) subcut QWEEK tizanidine 2 mg PO BEDTIME PRN topiramate 100 mg PO DAILY trazodone 100 mg PO BEDTIME PRN 90 days Tobacco use date assessed: 04/09/25 Dental Screening Dental Screen Date: 04/09/25 Did you have a dental visit in the last 12 months?: Yes Did you have a dental problem in the last 6 months where you did not have access to dental care?: No HPI HPI Comments History of Present Illness Details The patient is a 30-year-old female with DM, HTN, MDD, Insomnia, HLD, Chronic pain, Seizure disorder, migraines, low vitamin D and Obesity presenting to [facility] care and for management of Type 2 Diabetes Mellitus and Polycystic Ovary Syndrome (PCOS). She has been on Mounjaro for over three months at a dose of 2.5 mg and is considering increasing the dose to 5 mg to enhance weight loss, as she feels her body has adapted to the current dose. She is also on insulin tresiba 15 units and previously took Januvia, which she has discontinued. Her A1c levels are reportedly well-controlled. 5.7% in July The patient reports a history of Polycystic Ovary Syndrome (PCOS), with previous ultrasounds revealing cysts in the right ovary. She has experienced irregular menstrual cycles, with a recent absence of menstruation for almost two months despite a course of progesterone therapy. She denies any sexual activity in the past year, ruling out as a cause for amenorrhea. She has an appointment with handicraft or hobby shop manager on 04/24. She has been advised to follow up with her SENIOR MATERIALS PLANNER for a Pap smear and further evaluation of her hormonal issues. The patient has a history of hypertension on Losartan. Her BP today was 124/80. SHe is taking atorvastatin for hyperlipidemia. She has chronic back pain and has been working with a pain specialist for her back pain. She is on Gabapentin, Mobic and Tizanidine. The patient also reports hormonal acne and has been experiencing cramps without menstruation. She is under psychiatric care for depression and anxiety, taking sertraline, hydroxyzine, and trazodone. Additionally, she has a history of seizure disorder but is not currently on medication for it. She has migraines and is taking Topamax and Fioricet. She has a pending neurology appointment. Medical History: - Polycystic Ovary Syndrome (PCOS) - Type 2 Diabetes Mellitus - Hypertension - Hyperlipidemia - Chronic Back Pain - Hormonal Acne - Depression - Anxiety - Seizure Disorder - Migraine - Human Papillomavirus (HPV) Medications: - Mounjaro 2.5 mg for Type 2 Diabetes Me llitus - Insulin for Type 2 Diabetes Mellitus - Atorvastatin for Hyperlipidemia - Sertraline for Depression - Hydroxyzine for Anxiety - Trazodone for Depression Patient was informed and verbally consented to the use of an ambient scribe for clinic note documentation during this visit. [facility] Medical History (Updated 05/10/25 @ 09:58 by NADIR Piña) Acne vulgaris Amenorrhea Annual physical exam Anxiety Back pain Bilateral hand pain Chlamydia infection Depression Diabetes Disc degeneration, lumbar Encounter for screening examination for sexually transmitted disease Endogenous depression Frequent headaches High cholesterol High triglycerides History of PCOS Hypertension Insomnia Low back pain Low vitamin D level Migraines Obesity (BMI 30-39.9) Preprocedural examination Radiculopathy, lumbar region Sacroiliitis Seizure Seizures Spondylosis of lumbar spine Uncontrolled type 2 diabetes mellitus with hyperglycemia, with long-term current use of insulin Vertebrogenic low back pain Vitamin D deficiency Well woman exam with routine gynecological exam Surgical History H/O knee surgery History of back surgery History of section Family History Father Hypertension Mother Breast cancer Pelvic cancer Hypertension Diabetes Maternal Grandmother Diabetes Hypertension CVD (cardiovascular disease) Breast cancer Uterine cancer Ovarian cancer Maternal Grandfather Diabetes Hypertension CVD (cardiovascular disease) Lymphoma Social History Household Members: Children Housing: Apartment Alcohol intake: current Alcohol intake frequency: does not drink Patient Tobacco Use Status: Never used Tobacco e-Cigarette/Vaping Use: Never Used Second Hand Smoke Exposure: Yes service: No Current occupational status: disabled Cognitive needs: Yes (cane) Hearing needs: No Vision needs: No Female Reproductive History Menstrual Age of Menarche: 8 Questionnaire PHQ-9 Over the last 2 weeks, how often have you been bothered by any of the following problems? 1. Little interest or pleasure in doing things: not at all 2. Feeling down, depressed, or hopeless: nearly every day 3. Trouble falling or staying asleep, or sleeping too much: nearly every day 4. Feeling tired or having little energy: nearly every day 5. Poor appetite or overeating: not at all 6. Feeling bad about yourself - or that you are a failure or have let yourself or your family down: not at all 7. Trouble concentrating on things, such as reading the newspaper or watching television: not at all 8. Moving or speaking so slowly that other people could have noticed. Or the opposite - being so fidgety or restless that you have been moving around a lot more than usual: not at all 9. Thoughts that you would be better off or of hurting yourself in some way: not at all Total score: 9 Depression Screening Interpretation: Positive Depression Screening Follow-up: In treatment and Follow-up Visit Requested Depression Screening Done: Yes Source: Developed by Drs. Emile Prince, Andra Barfield, Velasquez Frances and colleagues, with an educational keeley from [employer]. Thrive Questionnaire Date Thrive assessed: 04/09/25 I am a: Patient Within the past 12 months, did the food you bought not last and you didn't have the money to get more?: Never true Within the past 12 months, did you worry whether your food would run out before you got money to buy more?: Never true Do you have trouble paying for medicines?: No Do you have trouble getting transportation to medical appointments?: No Do you have trouble paying your heating and electricity bill?: No Do you have trouble taking care of your child, family member or friend?: No Do you have trouble with day-to-day activities such as bathing, preparing meals, shopping, managing finances, etc.?: No Are you currently unemployed and looking for a job?: No Are you interested in more education?: No THRIVE Score: 0 AUDIT C Alcohol Use Questionnaire (AUDIT-C) 1. How often do you have a drink containing alcohol?: Never 3. How often do you have six or more drinks on one occasion?: Never Total Score: 0 KAI-7 AMB Questionnaire KAI-7 Date KAI - 7 assessed: 04/09/25 Feeling nervous, anxious, or on edge: 3 = Nearly every day Not being able to stop or control worryin = Not at all Worrying too much about different things: 0 = Not at all Trouble relaxin = Nearly every day Being so restless that it is hard to sit still: 0 = Not at all Becoming easily annoyed or irritable: 0 = Not at all Feeling afraid as if something awful might happen: 0 = Not at all Total KAI-7 score (0-4 normal; 5-9 mild; 10-14 moderate; 15-21 severe): 6 Source: Developed by Drs. Emile Prince, Velasquez Kim and colleagues, with an educational keeley from [employer]. Review of Systems Narrative - Endocrine: Reports hormonal acne and irregular menstrual cycles - Musculoskeletal: Reports chronic back pain, sometimes severe - Neurological: Reports migraines and seizure disorder - Psychiatric: Reports depression and anxiety - Gastrointestinal: Denies constipation, diarrhea, or heartburn Physical exam (Primary Care) Vital Signs: Last Vital Signs Temp 98 F 04/09/25 12:58 Pulse 82 04/09/25 12:58 BP 124/80 04/09/25 12:58 Pulse Ox 96 04/09/25 12:58 Oxygen Delivery Method Room Air 04/09/25 12:58 BMI result Body Mass Index 38.2 GENERAL Well developed, obese, in no apparent distress HEENT Head-Normocephalic Eyes- PERRLA, EOMI, Conjuctiva clear, lids WNL Ears- Canals clear, TMs WNL Mouth/Throat-No lesions, no erythema, no exudate Neck- Supple, No lymphadenopathy, thyroid WNL RESPIRATORY Normal I:E, Clear to auscultation CARDIOVASCULAR Regular, rate and rhythm, No murmurs or rubs GASTROINTESTINAL Soft, nontender, normal bowel sounds, no masses MUSCULOSKELETAL Back-Decreased ROM, Tender in Lumbar with muscle tightness, Tender with motion, Straight leg raise negative, DTR 2+ symmetrical, Gait slow Joints- no pain swelling or deformity NEUROLOGICAL Gait slow PSYCHIATRIC Oriented to person, place and time Mood and affect depressed Appearance WNL Speech WNL Thought processes WNL Tobacco/Smoking Status: Tobacco use Status Tobacco use date assessed 04/09/25 04/09/25 13:00 Patient Tobacco Use Status Never used Tobacco 04/09/25 13:00 e-Cigarette/Vaping Use Never Used 04/09/25 13:00 PHQ-9: PHQ-9 Score PHQ-9: Total score 9 05/09/25 13:03 Depression Screening Interpretation: Positive Depression Screening Follow-up: In treatment and Follow-up Visit Requested Thrive Assessment: Date of Thrive Assessment Date Thrive assessed 04/09/25 04/09/25 13:00 Coding Level of Care Code Established Pt Est Pt Level 4 (03177) Established Pt Complex EM visit Add On G2211 Patient Type Established Diagnoses Type 2 diabetes mellitus without complication, with long-term current use of insulin E11.9; Z79.4 Diabetes mellitus type: type 2 Diabetes mellitus longterm insulin use: with computer terminal operator use Diabetes mellitus complication status: without complication Primary hypertension I10 Hypertension type: primary hypertension Recurrent major depressive disorder, in partial remission F33.41 Depression Type: major depressive disorder Major depression recurrence: recurrent Active/Remission status: in partial remission High cholesterol E78.00 History of PCOS Z87.42 Migraines G43.909 Seizure R56.9 Obesity (BMI 30-39.9) E66.9 Chronic pain syndrome G89.4 Time Spent (min) 35 Comment Time spent on chart review, Medication reconciliation, H&P, patient education and orders. Assessment & Plan Assessment & Plan (1) Diabetes: Code(s): E11.9 - Type 2 diabetes mellitus without complications Category: Medical Qualifiers: Diabetes mellitus type: type 2 Diabetes mellitus computer terminal operator insulin use: with longterm use Diabetes mellitus complication status: without complication Qualified Code(s): E11.9 - Type 2 diabetes mellitus without complications; Z79.4 - parts counterman (current) use of insulin Plan: The patient will increase the Mounjaro dose to 5 mg to enhance weight loss and improve glycemic control. Will continue Tresiba 15 units. Will have a follow- up appointment in two months to assess progress. (2) Hypertension: Comment: BP today was 124/80 Code(s): I10 - Essential (primary) hypertension Category: Medical Qualifiers: Hypertension type: primary hypertension Qualified Code(s): I10 - Essential (primary) hypertension Plan: Controlled. Patient will continue current medications. Will monitor. Patient will follow up in 6 months. (3) Depression: Code(s): F32.A - Depression, unspecified Category: Medical Qualifiers: Depression Type: major depressive disorder Major depression recurrence: recurrent Active/Remission status: in partial remission Qualified Code(s): F33.41 - Major depressive disorder, recurrent, in partial remission Plan: Patient is followed by Psychiatry and is partial remission (4) High cholesterol: Code(s): E78.00 - Pure hypercholesterolemia, unspecified Category: Medical Plan: On Atorvastatin. (5) History of PCOS: Code(s): Z87.42 - Personal history of other diseases of the female genital tract Category: Medical Plan: The patient will follow up with her SENIOR MATERIALS PLANNER for further evaluation and management of PCOS, including a Pap smear and potential hormonal assessments. (6) Migraines: Code(s): G43.909 - Migraine, unspecified, not intractable, without status migrainosus Category: Medical Plan: The patient will attend a neurology appointment for further assessment and management of migraines. (7) Seizure: Code(s): R56.9 - Unspecified convulsions Category: Medical Plan: The patient has a pending neurology appointment for further evaluation and management of her seizure disorder. (8) Obesity (BMI 30-39.9): Comment: BMI today was 38.2 Code(s): E66.9 - Obesity, unspecified Category: Medical Plan: Discussed the health risks of obesity with the patient. Reviewed benefits of even moderate weight loss with the patient. Patient will gradually try and increase exercise to 30-40 min 5-7 times per week. We discussed they may need to break the exercise up into 2-3 sessions daily due to chronic pain. We discussed the patient adding more fruits and vegetables to their diet. Mounjaro was increased to 5mg. Will monitor weight and follow up in 2 months. (9) Chronic pain syndrome: Code(s): G89.4 - Chronic pain syndrome Category: Medical Plan: The patient continues to work with a pain specialist for management of chronic back pain and has been advised to follow up as needed. Plan During the visit, we discussed the management of Type 2 Diabetes Mellitus, including increasing the Mounjaro dose to 5 mg to aid in weight loss and glycemic control. We also reviewed the patient's history of PCOS and the need for follow-up with her SENIOR MATERIALS PLANNER for further evaluation, including a Pap smear. The patient was informed about the importance of attending her neurology appointment for seizure disorder and migraine management. We also addressed her chronic back pain management with the pain specialist and the continuation of her current psychiatric care. Orders: Orders Comprehensive Met. Panel 04/09/25 I10 - Essential (primary) hypertension, E11.9 - Type 2 diabetes mellitus without complications Hemoglobin A1c 04/09/25 E11.9 - Type 2 diabetes mellitus without complications Vitamin D 25-OH Total 04/09/25 R79.89 - Other specified abnormal findings of blood chemistry TSH reflex Free T4 04/09/25 E66.9 - Obesity, unspecified Medications: New tirzepatide (Mounjaro) 5 mg (0.5 mL) subcut QWEEK 2 mL 1RF for diabetes and weight loss Discontinued tirzepatide Discontinued Reason: Doctor's Order 2.5 mg (0.5 mL) subcut QWEEK 2 mL 0RF E11.65 - Type 2 diabetes mellitus with hyperglycemia, E66.9 - Obesity, unspecified, E78.00 - Pure hypercholesterolemia, unspecified, Z79.4 - parts counterman (current) use of insulin sitagliptin phosphate Discontinued Reason: Doctor's Order 50 mg PO DAILY 90 tabs 1RF Patient Instructions: - Increase Mounjaro dose to 5 mg as discussed. - Follow up with SENIOR MATERIALS PLANNER for Pap smear and hormonal evaluation. - Attend neurology appointment for seizure and migraine management. - Continue working with pain specialist for back pain management.
== END 2025-04-09 13:55 | disposition home or self-care (01) ==
LOC: HO.HMCHD 12:59
PROVIDERS: PCP Internal Medicine; Visit Provider Physician Assistant Medical
DX: E11.9 Type 2 diabetes mellitus without complications (principal); Z79.4 Long term (current) use of insulin; I10 Essential (primary) hypertension; F33.41 Major depressive disorder, recurrent, in partial remission; E78.00 Pure hypercholesterolemia, unspecified; Z87.42 Personal history of other diseases of the female genital tract; G43.909 Migraine, unspecified, not intractable, without status migrainosus; R56.9 Unspecified convulsions; E66.9 Obesity, unspecified; G89.4 Chronic pain syndrome

== ENCOUNTER → 2025-04-09 12:59 | Outpatient (BNVA) | payer OTHER, SELFPAY | PROVIDERS: PCP Internal Medicine; Visit Provider Physician Assistant Medical | DX: E11.9 Type 2 diabetes mellitus without complications (principal); E28.2 Polycystic ovarian syndrome; I10 Essential (primary) hypertension; F41.9 Anxiety disorder, unspecified; G40.909 Epilepsy, unspecified, not intractable, without status epilepticus; G43.909 Migraine, unspecified, not intractable, without status migrainosus; F33.41 Major depressive disorder, recurrent, in partial remission; E78.00 Pure hypercholesterolemia, unspecified; E66.9 Obesity, unspecified; G89.4 Chronic pain syndrome; Z79.4 Long term (current) use of insulin; Z87.42 Personal history of other diseases of the female genital tract; Z79.899 Other long term (current) drug therapy; Z68.38 Body mass index [BMI] 38.0-38.9, adult | CPT/HCPCS: 99212 ==

== ENCOUNTER 2025-04-24 13:50 | Outpatient (AMB) | payer OTHER, SELFPAY ==
--- NOTE | 2025-04-24 13:57 | A.OFFVIS_ITS ---
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: Digital Circuit Designer Present (Juliette) Accompanied by: Self / Same As Patient Allergies penicillin V Allergy (Unknown, Verified 04/24/25 14:17) rash,hives, fever Medication List - Last Reconciled 04/24/25 by Farheen Krishnan CNM atorvastatin 40 mg PO DAILY blood sugar diagnostic (FreeStyle Test strips) Test bs three time a day eiteanvewx-celictylsopzy-zwei 50-300-40 mg (Fioricet) 1 cap PO Q8H PRN cholecalciferol (vitamin D3) 1,250 mcg PO QWEEK 3 months flash glucose scanning reader (FreeStyle Hannah 14 Day Allen) As directed flash glucose sensor (FreeStyle Hannah 14 Day Sensor kit) USE DIRECTED gabapentin 300 mg PO TID 90 days hydroxyzine HCl 25 mg PO TID PRN 90 days insulin degludec (Tresiba FlexTouch U-100 insulin) 15 units (0.15 mL) subcut BEDTIME lancing device As directed losartan 25 mg PO DAILY 90 days meloxicam 15 mg PO DAILY pen needle, diabetic (BD Hanny 2nd Gen Pen Needle) As directed daily progesterone micronized (Prometrium) 200 mg PO .monthly 10 days sertraline 50 mg PO DAILY tirzepatide (Mounjaro) 5 mg (0.5 mL) subcut QWEEK tizanidine 2 mg PO BEDTIME PRN topiramate 100 mg PO DAILY trazodone 100 mg PO BEDTIME PRN 90 days Is last menstrual period known: Yes (2 months ago) Post menopausal: No Patient : No HPI HPI Annual/ ultra sound follow up: Details: 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 She tells me that we actually reviewed the previous ultrasounds done last spring at another visit. She had been diagnosed with PCOS in the past and having periods of amenorrhea and had previously had withdrawal bleeds after taking Provera but then she had a visit with another provider and management of her more consistent amenorrhea was discussed and decision made to place her on Prometrium on a monthly basis she said she only took it 1 time and did not get a period and she is currently on it now she started it 2 days ago so she has not taken it for the continual amount of time necessary to see if it works this month or not she is hoping that it does. She is not currently sexually active with her . She is not in the mood he had cheated on her in the past and they have both been treated and tested but she has not fully felt like she wants to engage in that part of their lives again yet. She is working very hard on weight loss she had started at weight management but they were offering surgery and that is not what she is interested in she has had back surgery and she does not want anymore surgeries in her body she feels she is young and she feels she can do this. She had some discussions with her doctor and she is now on Mounjaro and she feels that she is having success with it it is helping her cut down on ?the food noise? and she is just having her dose increased to 5 mg from 2.5. She is trying to be more active she adopted a dog and takes the dog out 4 times a day and brings her child out walking to which benefits him. She is working on trying to eat healthier too. She has lost 12 lb so far she would like to get down to 125 go at the very least 140. She feels very good that she was able to bring her hemoglobin A1c down. [facility] Medical History (Updated 04/24/25 @ 15:50 by Farheen Krishnan CNM) Well woman exam with routine gynecological exam Low vitamin D level Diabetes History of PCOS Acne vulgaris Amenorrhea Bilateral hand pain Seizures Endogenous depression Frequent headaches Vertebrogenic low back pain Low back pain Chlamydia infection Back pain Sacroiliitis Encounter for screening examination for sexually transmitted disease Anxiety Depression Hypertension Insomnia Migraines Uncontrolled type 2 diabetes mellitus with hyperglycemia, with long-term current use of insulin High triglycerides Vitamin D deficiency Obesity (BMI 30-39.9) Seizure Preprocedural examination Annual physical exam Spondylosis of lumbar spine Radiculopathy, lumbar region Disc degeneration, lumbar High cholesterol Surgical History History of back surgery H/O knee surgery History of section Family History Father Hypertension Mother Breast cancer Pelvic cancer Hypertension Diabetes Maternal Grandmother Diabetes Hypertension CVD (cardiovascular disease) Breast cancer Uterine cancer Ovarian cancer Maternal Grandfather Diabetes Hypertension CVD (cardiovascular disease) Lymphoma Social History Household Members: Children Housing: Apartment Alcohol intake: current Alcohol intake frequency: does not drink Patient Tobacco Use Status: Never used Tobacco e-Cigarette/Vaping Use: Never Used Second Hand Smoke Exposure: Yes service: No Current occupational status: disabled Cognitive needs: Yes (cane) Hearing needs: No Vision needs: No Female Reproductive History Menstrual Age of Menarche: 8 control method: none Total pregnancies: 1 Full term: 1 Date of last pap smear: 09/10/23 (+HPV) History of abnormal pap smear: Yes Physical Exam Vital Signs: Last Vital Signs BP 120/72 04/24/25 14:18 BMI result Body Mass Index 36.6 Const General: healthy appearing, comfortable, no acute distress, well developed and alert Nutritional Appearance: average body habitus Orientation/consciousness: patient oriented x3 Limitations: no limitations HEENT Head: Yes normocephalic Neck Neck: Yes normal visual inspection Chest Chest palpation & inspection: normal inspection of the chest Breast/axilla inspection: normal inspection of the breasts and normal inspection of the axillae Breast/axilla palpation: normal palpation of the breasts and normal palpation of the axillae Resp Effort & Inspection: normal respiratory effort GI Inspection: Yes normal to inspection, No Abdominal wall edema and No distended Palpation (GI): Soft to palpation and nontender Other: ext exam wnl, vagina pink, moist, healthy, normal scant secretions. cx nulliparous, long, thick, firm mobile non tender, adnexa non tender, good tone w kegel. General: Yes bladder normal to palpation External Female Exam: normal external appearance and normal appearance of the urethra Speculum Exam - Vagina: normal appearance of the vagina, normal palpation and normal vaginal discharge Speculum Exam - Cervix: normal appearance of the cervix, normal palpation and nontender Bimanual exam- vagina & uterus: normal bimanual exam, normal palpation, uterine size normal, bladder normal to palpation, consistency normal, normal palpation, uterine mobility normal, uterine shape normal, No Cervical tenderness present, non-tender and no cervical motion tenderness Bimanual Exam- Adnexa, other: normal adnexae, no masses, normal and No adnexal tenderness Neuro General: patient oriented x3 Assessment & Plan Assessment & Plan (1) Abnormal Pap smear of cervix: Comment: 09/10/2023 Pap is ASCUS, w positive HPV, -refer for colpo/colpo and biopsy done follow-up is August of 2024. Code(s): R87.619 - Unspecified abnormal cytological findings in specimens from cervix uteri Category: Medical (2) ASCUS with positive high risk HPV cervical: Comment: Colpo and biopsy were done follow-up is August of 2024. Code(s): R87.610 - Atypical squamous cells of undetermined significance on cytologic smear of cervix (ASC-US); R87.810 - Cervical high risk human papillomavirus (HPV) DNA test positive Category: Medical (3) Amenorrhea, secondary: Comment: Currently taking Prometrium for the 2nd month. Patient to call us if she does not get a menses after as expected, and for refills Code(s): N91.1 - Secondary amenorrhea Category: Medical (4) Pelvic floor weakness: Comment: Unable to perform a Kegel. Possibly related to her disc issues... We will send PT referral. Code(s): N81.89 - Other female genital prolapse Category: Medical (5) Diabetes: Code(s): E11.9 - Type 2 diabetes mellitus without complications Category: Medical (6) Amenorrhea: Code(s): N91.2 - Amenorrhea, unspecified Category: Medical (7) Obesity (BMI 30-39.9): Code(s): E66.9 - Obesity, unspecified Category: Medical (8) Well woman exam with routine gynecological exam: Code(s): Z01.419 - Encounter for gynecological examination (general) (routine) without ab normal findings Category: Medical (9) Encounter for screening examination for sexually transmitted disease: Code(s): Z11.3 - Encounter for screening for infections with a predominantly sexual mode of transmission Category: Medical Plan -----Discussed in this visit the following: healthy balanced diet, regular and consistent exercise, getting recommended health screens, doing the best she can for her particular health concerns, kegel exercises, pap smear screening and followup recommendations, mammography screening and SBE, normal changes in cycles in her life stage--- . Discussed all of the issues that were covered in HPI. Currently the the patient is taking Prometrium for the 2nd time it did not work the last time I asked her to call us if she does not get a period after this present course and also for refills. We will have to see the best course of action if she does not get a menses. She is not currently sexually active given a past infidelity in her marriage. Testing done during the visit just to be sure. She is working very hard on trying to get healthier and lose the weight she is very motivated as the weight has prove to be so difficult with for her with her back pain and back surgeries she was very clear that she did not not want bariatric surgery she wants not to have anymore surgeries. She believes she can do it and she is working hard and the [employer] is really helping her and she is just increasing the dose now. She is taking lots of vitamins and supplements. She is taking magnesium 50 mg but still gets lots of leg cramps at night she has walking their new dog more and being more active so I suggested drinking more water and possibly increasing her magnesium. Suggested adding arm weights and gentle abdominal crunches taking great care not to injure her back or neck and suggested seeking out actual exercise advice on how best to increase exercise without injuring herself. She is very proud of herself for having lost 12 lb and is continuing on We will see her in 1 year but she is to call if she does not get a period and also if she needs refills on the Prometrium. Pap smear was done with [facility] and we will follow-up on it depending on the results (she had ASCUS with high-risk HPV last year and colposcopy following it). She is following up with her primary care provider team. Coding Level of Care Code Est Pt Prev Care [id number]) Diagnoses Abnormal Pap smear of cervix R87.619 ASCUS with positive high risk HPV cervical R87.610; R87.810 Amenorrhea, secondary N91.1 Pelvic floor weakness N81.89 Diabetes E11.9 Amenorrhea N91.2 Obesity (BMI 30-39.9) E66.9 Well woman exam with routine gynecological exam Z01.419 Encounter for screening examination for sexually transmitted disease Z11.3
[2025-04-24 14:18] VITALS: BP 120/72; BMI 36.6
== END 2025-04-26 09:32 | disposition home or self-care (01) ==
LOC: HO.HWSM 13:50
PROVIDERS: PCP Physician Assistant Medical; Visit Provider Advanced Practice Midwife
DX: Z01.419 Encounter for gynecological examination (general) (routine) without abnormal findings (principal); E11.9 Type 2 diabetes mellitus without complications; R87.619 Unspecified abnormal cytological findings in specimens from cervix uteri; R87.610 Atypical squamous cells of undetermined significance on cytologic smear of cervix (ASC-US); R87.810 Cervical high risk human papillomavirus (HPV) DNA test positive; N81.89 Other female genital prolapse; N91.1 Secondary amenorrhea; N91.2 Amenorrhea, unspecified; E66.9 Obesity, unspecified; Z11.3 Encounter for screening for infections with a predominantly sexual mode of transmission
CPT/HCPCS: 99395; 99459

== ENCOUNTER 2025-04-24 13:50 | Outpatient (REF) | payer OTHER, SELFPAY ==
[2025-04-26 15:13] LABS: Bacterial Vaginosis PCR NEGATIVE (Negative); Candida Group PCR NOT DETECTED (Not Detect); Candida glab krusei PCR NOT DETECTED (Not Detect); Trichomonas vaginalis PCR NOT DETECTED (Not Detect)
[2025-04-26 15:38] LABS: CT PCR NOT DETECTED (Not Detect.); NG PCR NOT DETECTED (Not Detect.)
== END 2025-04-24 13:51 | disposition home or self-care (01) ==
LOC: HO.LNP 13:50
PROVIDERS: PCP Physician Assistant Medical; Visit Provider Advanced Practice Midwife
DX: Z01.419 Encounter for gynecological examination (general) (routine) without abnormal findings (principal); R87.610 Atypical squamous cells of undetermined significance on cytologic smear of cervix (ASC-US); R87.810 Cervical high risk human papillomavirus (HPV) DNA test positive; N81.89 Other female genital prolapse; E11.9 Type 2 diabetes mellitus without complications; N91.1 Secondary amenorrhea; Z20.2 Contact with and (suspected) exposure to infections with a predominantly sexual mode of transmission; E66.9 Obesity, unspecified; Z68.36 Body mass index [BMI] 36.0-36.9, adult; Z79.4 Long term (current) use of insulin; Z79.85 Long-term (current) use of injectable non-insulin antidiabetic drugs
CPT/HCPCS: 81515; 87491; 87591; 87626; 88175; 99395

== ENCOUNTER 2025-06-01 10:07 | Outpatient (REF) | payer OTHER, SELFPAY ==
[2025-06-01 12:01] LABS: Alanine Aminotransferase 28 U/L (0-31); Albumin Level 4.6 g/dL (3.5-5.0); Alkaline Phosphatase 66 U/L (39-117); Anion Gap 13 (12-20); Aspartate Amino Transferase 28 U/L (5-31); Blood Urea Nitrogen 10 mg/dL (9-16); Calcium 9.5 mg/dL (8.4-10.2); Carbon Dioxide 21 mmol/L (22-29); Chloride 110 mmol/L (96-108); Estimated Glomerular Filt Rate > 60; Potassium 3.9 mmol/L (3.3-5.1); Sodium 140 mmol/L (135-145); Total Protein 8.1 g/dL (6.5-8.0)
== END 2025-06-01 10:08 | disposition home or self-care (01) ==
LOC: HO.LAB 10:07
PROVIDERS: PCP Physician Assistant Medical; Visit Provider Physician Assistant Medical
DX: I10 Essential (primary) hypertension (principal); E11.9 Type 2 diabetes mellitus without complications; E66.9 Obesity, unspecified; R79.89 Other specified abnormal findings of blood chemistry
CPT/HCPCS: 36415; 80053; 82306; 83036; 84443

== ENCOUNTER 2025-06-19 13:36 | Outpatient (AMB) | payer OTHER, SELFPAY ==
--- NOTE | 2025-06-19 13:52 | A.OFFPC_ITS ---
Vital Signs 06/19/25 13:53 Height 5 ft 10 in Weight 255 lb BMI 36.6 BP 126/80 Blood Pressure Location Rt brachial Position Sitting Pulse 70 Pulse Source Pulse Oximeter Temp 97.8 F Temp Source Temporal Artery Scan Pulse Oximetry (%) 97 Oxygen Delivery Method Room Air Intake Visit Reasons: 2 Month F/U Rescheduled from 06/12/25 Bulk Filler Required: No Accompanied by: Self / Same As Patient Allergies penicillin V Allergy (Unknown, Verified 06/19/25 13:53) rash,hives, fever Medication List - Last Reconciled 07/24/25 by NADIR Piña atorvastatin 40 mg PO DAILY blood sugar diagnostic (FreeStyle Test strips) Test bs three time a day pnnmljikmf-vczzxbekcbdxr-zwls 50-300-40 mg 1 cap PO Q4-6H PRN celecoxib (Celebrex) 200 mg PO BID PRN cholecalciferol (vitamin D3) 1,250 mcg PO QWEEK 3 months flash glucose scanning reader (Grabhouse[employer] Hannah 14 Day [place]) As directed flash glucose sensor (FreeStyle Hannah 14 Day Sensor kit) USE DIRECTED gabapentin 600 mg PO TID hydrocortisone 2.5% 1 appl topical BID-TID PRN hydroxyzine HCl 25 mg PO TID PRN 90 days insulin degludec (Tresiba FlexTouch U-100 insulin) 15 units (0.15 mL) subcut BEDTIME lancing device As directed losartan 25 mg PO DAILY 90 days pen needle, diabetic (BD Hanny 2nd Gen Pen Needle) As directed daily progesterone micronized (Prometrium) 200 mg PO .monthly 10 days propranolol ER 60 mg PO BEDTIME 30 days riboflavin (vitamin B2) 400 mg PO DAILY 90 days sertraline 50 mg PO DAILY sumatriptan succinate 50 - 100 mg orally at onset of headache, may repeat in 2 hrs PRN; max 2 tabs per day or 4 tabs/week (may take with Ibuprofen) 30 days tirzepatide (Mounjaro) 7.5 mg (0.5 mL) subcut QWEEK tizanidine 2 mg PO BEDTIME PRN topiramate 100 mg PO DAILY trazodone 100 mg PO BEDTIME PRN 90 days Tobacco use date assessed: 06/19/25 Dental Screening Dental Screen Date: 06/19/25 Did you have a dental visit in the last 12 months?: Yes Did you have a dental problem in the last 6 months where you did not have access to dental care?: No HPI HPI Comments History of Present Illness Details History of Present Illness The patient is a 30 year old female with DM, HTN, MDD, Insomnia, HLD, Chronic pain, Seizure disorder, migraines, low vitamin D and Obesity presenting for a follow-up to review lab results and discuss new symptoms. She reports experiencing significant hand pain and cramping, which causes her hands to get stuck, particularly upon waking and when gripping objects like a cup or a broom. She also reports constant fatigue and generalized joint pain affecting her entire body, including her knees and back. The patient denies a loose state attorney or dropping things. For her pain, the patient previously took meloxicam but found it ineffective. She notes that gabapentin, which she took for back pain, provided some relief for her muscles. She was taking gabapentin 300 mg, two pills at a time. She is also using Tizanidine PRN. Patient is on Mounjaro 5mg and Tresiba 15 units daily for DM. Her recent labs on 06/01 showed a glucose of 114 and A1C of 5.6%. She is on Losartan 25mg for HTN. She also takes Propranolol, Riboflavin, Topiramate and Sumatriptan for migraines. Her BP today was 126/80. For weight management, the patient has been taking Mounjaro and has lost 11 pounds since March. She was on the 5 mg dose, which she took twice, but has encountered a prior authorization issue at the pharmacy. She denies any side effects from Mounjaro, such as nausea or headaches. Her medical history is notable for two prior back surgeries and an allergy to paracetamol. Recent lab work showed a blood sugar of 114 mg/dL and an A1c of 5.6%, with normal vitamin D, thyroid, liver, and kidney function. Medical History: - Prediabetes - History of back pain - Allergy to paracetamol (acetaminophen) Surgical History: - Two prior back surgeries Health Maintenance - Recent lab results reviewed: blood sug ar 114 mg/dL, HbA1c 5.6%. Vitamin D, thyroid, liver, and kidney function tests were normal. - Weight management: The patient has los t 11 pounds since March. - [facility] - The patient has an ultrasound schedule d for July. Social History - Weight management: The patient is acti corbin engaged in weight loss, having lost 11 pounds since March with the use of Mounjaro. Results - Labs: - Blood sugar: 114 mg/dL - HbA1c: 5.6% - Vitamin D, thyroid function, liver fun ction, and kidney function were normal. Patient was informed and verbally consented to the use of an ambient scribe for clinic note documentation during this visit. 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 Depression Diabetes Disc degeneration, lumbar Encounter for screening examination for sexually transmitted disease Endogenous depression Frequent headaches High cholesterol High triglycerides History of PCOS Hypertension Insomnia Low back pain Low vitamin D level Migraines Obesity (BMI 30-39.9) Preprocedural examination Radiculopathy, lumbar region Sacroiliitis Seizure Seizures Spondylosis of lumbar spine Uncontrolled type 2 diabetes mellitus with hyperglycemia, with long-term current use of insulin Vertebrogenic low back pain Vitamin D deficiency Well woman exam with routine gynecological exam Surgical History H/O knee surgery History of back surgery History of section Family History Father Hypertension Mother Breast cancer Pelvic cancer Hypertension Diabetes Maternal Grandmother Diabetes Hypertension CVD (cardiovascular disease) Breast cancer Uterine cancer Ovarian cancer Maternal Grandfather Diabetes Hypertension CVD (cardiovascular disease) Lymphoma Social History Household Members: Children Housing: Apartment Alcohol intake: current Alcohol intake frequency: does not drink Patient Tobacco Use Status: Never used Tobacco e-Cigarette/Vaping Use: Never Used Second Hand Smoke Exposure: Yes service: No Current occupational status: disabled Cognitive needs: Yes (cane) Hearing needs: No Vision needs: No Female Reproductive History Menstrual Age of Menarche: 8 Questionnaire Thrive Questionnaire Date Thrive assessed: 04/09/25 KAI-7 AMB Questionnaire KAI-7 Date KAI - 7 assessed: 04/09/25 Source: Developed by Drs. Emile Prince, Andra B.Velasquez Don and colleagues, with an educational keeley from [employer]. Review of Systems Narrative Review of Systems - Constitutional: Reports feeling tired all the time. - Neurological: Denies loose state attorney or dropping items. Denies headaches. - Musculoskeletal: Reports significant hand pain and cramping leading to her hands getting stuck. Reports generalized joint pain affecting her knees and back. - Gastrointestinal: Denies nausea. Physical exam (Primary Care) Vital Signs: Last Vital Signs Temp 97.8 F 06/19/25 13:53 Pulse 70 06/19/25 13:53 BP 126/80 06/19/25 13:53 Pulse Ox 97 06/19/25 13:53 Oxygen Delivery Method Room Air 06/19/25 13:53 BMI result Body Mass Index 36.6 GENERAL Well developed, obese, in no apparent distress HEENT Head-Normocephalic Neck- Supple, No lymphadenopathy, thyroid WNL RESPIRATORY Normal I:E, Clear to auscultation CARDIOVASCULAR Regular, rate and rhythm, No murmurs or rubs MUSCULOSKELETAL Back-Decreased ROM, Tender in Lumbar with muscle tightness, Tender with motion, Straight leg raise negative, DTR 2+ symmetrical, Gait slow Joints- no swelling or deformity NEUROLOGICAL Gait slow PSYCHIATRIC Oriented to person, place and time Mood and affect depressed Appearance WNL Speech WNL Thought processes WNL Tobacco/Smoking Status: Tobacco use Status Tobacco use date assessed 06/19/25 06/19/25 14:03 Patient Tobacco Use Status Never used Tobacco 06/19/25 14:03 e-Cigarette/Vaping Use Never Used 06/19/25 14:03 Thrive Assessment: Date of Thrive Assessment Date Thrive assessed 04/09/25 06/19/25 14:03 Narrative Physical Exam Coding Level of Care Code Established Pt Est Pt Level 4 (25734) Established Pt Add On Problem Visit Only Patient Type Established Diagnoses Type 2 diabetes mellitus without complication, with long-term current use of insulin E11.9; Z79.4 Diabetes mellitus type: type 2 Diabetes mellitus 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 Assessment & Plan Assessment & Plan (1) Diabetes: Comment: A1C was 5.6% Code(s): E11.9 - Type 2 diabetes mellitus without complications Category: Medical Qualifiers: Diabetes mellitus type: type 2 Diabetes mellitus care home insulin use: with care home use Diabetes mellitus complication status: without complication Qualified Code(s): E11.9 - Type 2 diabetes mellitus without complications; Z79.4 - affirmative action officer (current) use of insulin Plan: Controlled. Patient will continue current medications. Will monitor. Patient will follow up in 2 months (2) Hypertension: Comment: BP today was 126/80 Code(s): I10 - Essential (primary) hypertension Category: Medical Qualifiers: Hypertension type: primary hypertension Qualified Code(s): I10 - Essential (primary) hypertension Plan: Controlled. Patient will continue current medications. Will monitor. Patient will follow up in 2 months (3) Obesity (BMI 30-39.9): Comment: BMI today was 36.6 Code(s): E66.9 - Obesity, unspecified Category: Medical Plan: Will increase Mounjaro to 7.5mg. Patient to follow up in 2 months or sooner if needed. (4) Chronic pain syndrome: Code(s): G89.4 - Chronic pain syndrome Category: Medical Plan: Will increase Gabapentin to 600mg and change to Celebrex. Patient to follow up as needed if symptoms persist or worsen. Plan Plan Patient was informed and verbally consented to the use of an ambient scribe for clinic note documentation during this visit. 1. Arthralgia And Myalgia The patient reports significant hand pain with cramping and locking, as well as generalized joint pain and fatigue. Previous treatment with meloxicam was ineffective, while gabapentin provided some relief. The plan is to increase gabapentin to 600 mg and prescribe Celebrex for pain and inflammation. If these medications do not provide relief, referral for nerve studies will be considered. 2. Overweight And Prediabetes The patient's recent lab work showed an HbA1c of 5.6% and she has been using Mounjaro for weight management. She has successfully lost 11 pounds since March with no reported side effects. The plan is to increase her Mounjaro dose from 5 mg to 7.5 mg and address the prior authorization issue with the pharmacy. The patient will be monitored for side effects and the dose will continue to be titrated up as tolerated, with the next increase potentially occurring at the two-month follow-up. 3. Follow-Up And Referrals All necessary prescriptions will be sent to the [facility] pharmacy on [address] [place] [address] in [place]. The patient will continue with her scheduled appointments with a neurologist in June and for an ultrasound in July. A follow-up visit is scheduled in two months to reassess her symptoms and adjust medications as needed. Discussion Notes I reviewed the patient's recent lab work with her, noting that all results were good, with the exception of an A1c of 5.6%, indicating prediabetes. We discussed her new symptoms of hand pain with cramping and locking, as well as generalized joint pain and fatigue. I explained the plan to increase her gabapentin dose to 600 mg and start Celebrex to manage pain and inflammation. I informed her that if her symptoms do not improve, we will need to consider nerve studies. We discussed her progress on Mounjaro, including her 11-pound weight loss, and the plan to titrate the dose up to 7.5 mg. I advised her to let me know if she experiences any severe side effects, although she has tolerated the medication well so far. We confirmed her pharmacy details, and I will send in the new prescriptions. I recommended a follow-up appointment in two months to monitor her progress and for a potential further increase in her Mounjaro dose. Patient Instructions - We are increasing your gabapentin dose to 600 mg for pain. - You will start a new medication called Celebrex for pain and inflammation. - If the pain in your hands and joints does not get better with these medicines, we may need to do some nerve tests. - We are increasing your Mounjaro dose to 7.5 mg. We will take care of the insurance authorization for you. - Please let us know if you have any severe side effects like bad nausea or headaches from your medications. - Keep your scheduled appointment with the neurologist in June and for your ultrasound in July. - I have sent your new prescriptions to the [facility] pharmacy at [address] [place] [address] in [place]. - Please schedule a follow-up appointment to see me in two months. Medications: New gabapentin 600 mg PO TID 270 tabs 1RF for chronic pain celecoxib (Celebrex) with food 200 mg PO BID PRN 60 caps 1RF pain tirzepatide (Mounjaro) 7.5 mg (0.5 mL) subcut QWEEK 2 mL 1RF for diabetes and weight loss Discontinued tirzepatide Discontinued Reason: Doctor's Order 50 mg (5 mL) subcut QWEEK 2 mL 1RF meloxicam Discontinued Reason: Doctor's Order 15 mg PO DAILY 90 tabs 1RF pain
[2025-06-19 13:53] VITALS: BP 126/80; PULSE 70; TEMP 36.6; O2SAT 97; BMI 36.6
== END 2025-06-19 14:33 | disposition home or self-care (01) ==
LOC: HO.HMCHD 13:37
PROVIDERS: PCP Physician Assistant Medical; Visit Provider Physician Assistant Medical
DX: E11.9 Type 2 diabetes mellitus without complications (principal); Z79.4 Long term (current) use of insulin; I10 Essential (primary) hypertension; E66.9 Obesity, unspecified; G89.4 Chronic pain syndrome

== ENCOUNTER → 2025-06-19 13:36 | Outpatient (BNVA) | payer OTHER, SELFPAY | PROVIDERS: PCP Physician Assistant Medical; Visit Provider Physician Assistant Medical | DX: E11.9 Type 2 diabetes mellitus without complications (principal); M79.642 Pain in left hand; M79.641 Pain in right hand; R53.83 Other fatigue; M25.561 Pain in right knee; M25.562 Pain in left knee; M54.9 Dorsalgia, unspecified; I10 Essential (primary) hypertension; E66.9 Obesity, unspecified; G89.4 Chronic pain syndrome; Z79.899 Other long term (current) drug therapy; Z79.4 Long term (current) use of insulin; Z68.36 Body mass index [BMI] 36.0-36.9, adult | CPT/HCPCS: 99212 ==